=== PATIENT | female | born 1970 | race African-American/Black ===

== ENCOUNTER → 2017-02-08 | Outpatient (CLI) | payer BC ==
[2015-10-07 08:54] VITALS: BP 142/99
--- NOTE | 2017-02-08 17:01 | US ---
HISTORY: Bilateral breast lumps Bilateral digital diagnostic mammography with CAD and bilateral breast ultrasound. Comparison: May 24, 2015 FINDINGS: Mammogram: Bilateral CC, mL, and MLO projections of the right and left breast were obtained. Heterog eneously dense fibroglandular tissue is seen to be present without significant interval change. No s uspicious architectural distortion, mass or clustered microcalcifications can be observed to suggest malignancy. No skin thickening or nipple retraction is appreciated. No pathological lymphadenopath y can be identified. Benign-appearing calcifications are noted within the right and left breast. Ultrasound: Multiple grayscale and color Doppler images of both breasts were obtained in the regions of interest at 11-12 o'clock on the right and at 3 o'clock on the left. There are no suspicious cysti c or solid nodules bilaterally. On the left in the region of interest at 3 o'clock, there is a horizo ntally oriented smoothly marginated and well circumscribed 6 mm predominantly anechoic cyst with post erior acoustical enhancement and no internal Doppler flow with trace internal debris versus artifact without a suspicious peripheral nodular component. IMPRESSION: NO RADIOGRAPHIC EVIDENCE OF MALIGNANCY. ACR CATEGORY 2 - benign findings. FOLLOW-UP EXAM 1 YEAR. Diagnostic CAD was utilized and reviewed. * 0 (ZERO) - ASSESSMENT INCOMPLETE; ADDITIONAL IMAGING IS NEEDED. * 1/1 (ONE) - NEGATIVE. * 2/II (TWO) - BENIGN FINDINGS. * 3/III (THREE) - PROBABLY BENIGN FINDING; SHORT INTERVAL FOLLOW-UP SUGGESTED. * 4/IV (FOUR) - SUSPICIOUS ABNORMALITY; BIOPSY SHOULD BE CONSIDERED. * 5/V - HIGHLY SUSPICIOUS OF MALIGNANCY; BIOPSY SHOULD BE PERFORMED. A NEGATIVE X-RAY REPORT SHOULD NOT DELAY BIOPSY IF A DOMINANT OR CLINICALLY SUSPICIOUS MASS IS PRESENT; 4 TO 8 PERCENT OF CANCERS ARE NOT IDENTIFIED BY X-RAY. A NEGA TIVE REPORT MAY REINFORCE THE CLINICAL IMPRESSION. ADENOSIS AND DENSE BREASTS MAY OBSCURE AN UNDERLY ING NEOPLASM. Reported By:
== END ==
LOC: RAD 14:30
PROVIDERS: ATTEND Nurse Practitioner Family
DX: N63.0 Unspecified lump in unspecified breast (principal)
CPT/HCPCS: 76642; 77066

== ENCOUNTER 2020-09-03 06:54 | Inpatient (IN) ==
[2020-09-03] MEDS ORDERED: NS 1000 ML 1,000 ML ONE (07:09)
[2020-09-03 07:11] VITALS: BMI 43.7
[2020-09-03] MEDS ORDERED: PROTONIX INJ 40 MG VIAL IVP ONE (07:35)
[2020-09-03] MEDS ORDERED: NS 1000 ML 1,000 ML IV STA (07:35)
[2020-09-03] MEDS ORDERED: ZOFRAN INJ 4 MG VIAL IVP ONE (07:35)
--- NOTE | 2020-09-03 07:35 | ED.ABDFE ---
HPI <Higinio Lucas Last Filed: 09/07/20 18:24> Time Seen Time Seen by Provider: 09/03/20 07:00 HPI Comment HPI Comment: PATIENT WITH A HISTORY OF HYPERTENSION, DEPENDENT EDEMA COMPLAINS OF ACUTE ONSET OF LOW GRADE FEVER, CHILLS, GENERALIZED ABDOMINAL PAIN, FREQUENT EPISODES OF EMESIS AND WATERY DIARRHEA. DENIES CHEST PAIN OR DYSPNEA. Complaint Doctors Chief Complaint Comments: NAUSEA, EMESIS AND DIARRHEA COVID-19 Coronavirus symptoms experienced: Fever Reviewed Nurses Notes Review: Yes Source History Provided: Patient and EMS Mode of arrival Mode of Arrival: EMS Timing Came on: Suddenly Duration Since Onset: Constant How lon Duration: Hours Location Location: Diffuse Severity Severity: Moderate Quality Quality: Cramping Modifying factors Worsening Factors: Nothing Associated signs and symptoms Associated Signs and Symptoms: Nausea, Vomiting and Diarrhea PMH <Higinio Lucas Last Filed: 09/07/20 18:24> PMH Past Medical History: Dyslipidemia and Hypertension Past Surgical History: Yes Surgical History: , 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, 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, 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 and Other (TUBAL LIGATION) Family History Family Medical History: Diabetes Mellitus, [place], Coronary Artery Disease, Heart Failure, Sudden Cardiac and Hypertension Social History Do you use any recreational Drugs:: No ROS <Higinio Lucas Last Filed: 09/07/20 18:24> Review of Systems Constitutional: See HPI, Chills, Fever and Malaise Eyes: No Symptoms Reported ENTM: No Symptoms Reported Respiratoy: No Symptoms Reported Cardiovascular: No Symptoms Reported Gastrointestinal/Abdominal: See HPI, Abdominal Pain, Diarrhea, Nausea and Vomiting Genitourinary: No Symptoms Reported Neurological: Weakness Musculoskeletal: No Symptoms Reported Integumentary: No Symptoms Reported Hematologic/Lymphatic: No Symptoms Reported Endocrine: No Symptoms Reported Psychiatric: No Symptoms Reported All Other Systems: Reviewed and Negative PE <Higinio Lucas Last Filed: 09/07/20 18:24> Vital Signs Vitals: Temperature 98.3 F Pulse Rate [Left Radial] 116 Pulse Rate 114 Respiratory Rate 22 Blood Pressure [Right Arm] 110/64 Blood Pressure 100/56 O2 Sat by Pulse Oximetry 96 General Limitations: No Limitations General Appearance: Alert (ARRIVES TO EMERGENCY ROOM VIA EMS ALERT AND APPROPRIATE), In No Apparent Distress and Other (CHILLS) Head Head Exam: Normal Inspection and Atraumatic Eyes Eye exam: Normal Appearance, PERRL and EOMI ENT ENT Exam: Normal Exam and Normal Oropharynx Neck Neck Exam: Normal Inspection, Full ROM and Trachea Midline Chest Chest Inspection: Normal Inspection Respiratory Respiratory Exam: Normal Lung Sounds Bilat Respiratory Exam: Bilateral: Clear to Auscultation Cardiovascular Cardiovascular Exam: Regular Rate, Normal Rhythm and Tachycardia Abdominal Exam Abdominal Exam: Normal Inspection, Normal Bowel Sounds, Soft and Tenderness (PERIUMBILICAL, EPIGASTRIC AND BILATERAL LOWER QUAD TENDERNESS) Abdominal Tenderness: RLQ, LLQ and Epigastrium Back Back Exam: Normal Inspection and Full ROM Extremeties Extremities Exam: Normal Inspection and Full ROM Neurologic Neurological Exam: Alert, Oriented X3 and CN II-XII Intact Psychiatric Psychiatric Exam: Normal Affect, Normal Mood and Depressed Skin Skin Exam: Warm, Dry and Intact <Maribel Suresh - Last Filed: 09/03/20 10:42> Vital Signs Vitals: Temperature 98.3 F Pulse Rate [Left Radial] 116 Pulse Rate 114 Respiratory Rate 22 Blood Pressure [Right Arm] 110/64 Blood Pressure 100/56 O2 Sat by Pulse Oximetry 96 MDM <Higinio Lucas - Last Filed: 09/07/20 18:24> Differential Diagnosis Differential Diagnosis- Considerations may include:: Bowel Obstruction and Inflammatory BD Other differential diagnosis: ACUTE GASTROENTERITIS, COVID, COURSE <Higinio Lucas - Last Filed: 09/07/20 18:24> Treatment Treatment: IV NORMAL SALINE 1 LITER BOLUS/HR, ZOFRAN 4MG, PROTONIX 40MG IV Reevaluation 1st: Unchanged (assumed care of this patient at shift change from Dr. Lucas.) <Maribel Suresh - Last Filed: 09/03/20 10:42> Consultation Consultation Comments: Spoke with Dr. Corea who accepts this patient for admission. ROR <Higinio Lucas - Last Filed: 09/07/20 18:24> Labs Reviewed Result Diagrams: 09/07/20 04:44 09/07/20 04:44 Laboratory: 09/03/20 07:39 Stool Stool Culture - Final 09/03/20 07:39 Stool - Final 09/03/20 07:47 Blood Blood Culture - Final Escherichia Coli 09/03/20 07:42 Blood Blood Culture - Final Escherichia Coli WBC 2.0 X10^3/uL (3.6-10.0) L 09/03/20 07:35 RBC 4.04 X10^6/uL (3.5-5.4) 09/03/20 07:35 Hgb 9.6 g/dL (12.0-16.0) L 09/03/20 07:35 Hct 30.4 % (36.0-47.0) L 09/03/20 07:35 MCV 75.2 fL (80.0-100.0) L 09/03/20 07:35 MCH 23.8 pg (27.0-34.0) L 09/03/20 07:35 MCHC 31.7 g/dL (33.0-35.0) L 09/03/20 07:35 RDW 18.6 % (11.6-16.5) H 09/03/20 07:35 Plt Count 219 X10^3/uL (150.0-450.0) 09/03/20 07:35 Plt Count Comment Adequate (ADEQUATE) 09/03/20 07:35 MPV 7.6 fL (7.4-11.0) 09/03/20 07:35 Neut % (Auto) 61.2 % (42.0-75.0) 09/03/20 07:35 Lymph % (Auto) 35.0 % (21.0-51.0) 09/03/20 07:35 [place] % (Auto) 1.4 % (0.0-13.0) 09/03/20 07:35 Eos % (Auto) 0.2 % (0.9-2.9) L 09/03/20 07:35 Baso % (Auto) 2.2 % (0.2-1.0) H 09/03/20 07:35 Neut # (Auto) 1.2 x10^3/uL (2.2-4.8) L 09/03/20 07:35 Lymph # (Auto) 0.7 X10^3/uL (1.3-2.9) L 09/03/20 07:35 [place] # (Auto) 0 x10^3/uL (0.3-0.8) L 09/03/20 07:35 Eos # (Auto) 0.0 x10^3/uL (0.0-0.2) 09/03/20 07:35 Baso # (Auto) 0.0 X10^3/uL (0.0-0.1) 09/03/20 07:35 Absolute Nucleated RBC 2.1 /100WBC 09/03/20 07:35 Total Counted 50 09/03/20 07:35 Neutrophils % (Manual) 58 % (39-76) 09/03/20 07:35 Lymphocytes % (Manual) 38 % (13-43) 09/03/20 07:35 Monocytes % (Manual) 2 % (4-9) L 09/03/20 07:35 Eosinophils % (Manual) 2 % (0-6) 09/03/20 07:35 Nucleated RBCs 2 09/03/20 07:35 Plt Morphology Comment Normal (NORMAL) 09/03/20 07:35 RBC Morphology Abnormal (NORMAL) A 09/03/20 07:35 Anisocytosis Slight A 09/03/20 07:35 Sodium 143 mmol/L (136-145) 09/03/20 07:35 Corrected Sodium 145 mmol/L (136-145) 09/03/20 07:35 Potassium 3.8 mmol/L (3.5-5.1) 09/03/20 07:35 Chloride 108 mmol/L (98-107) H 09/03/20 07:35 Carbon Dioxide 24.8 mmol/L (21-32) 09/03/20 07:35 BUN 19 mg/dL (7-18) H 09/03/20 07:35 Creatinine 1.29 mg/dL (0.55-1.02) H 09/03/20 07:35 Est GFR (MDRD) Af Amer 57 (>60) L 09/03/20 07:35 Est GFR (MDRD) Non-Af 47 (>60) L 09/03/20 07:35 Glucose 177 mg/dL (65-99) H 09/03/20 07:35 Lactic Acid 5.0 mmol/L (0.4-2.0) H 09/03/20 13:42 Calcium 8.9 mg/dL (8.5-10.1) 09/03/20 07:35 Corrected Calcium 9.6 mg/dL (8.5-10.1) 09/03/20 07:35 Total Bilirubin 0.30 mg/dL (0.2-1.0) 09/03/20 07:35 AST 20 Units/L (15-37) 09/03/20 07:35 ALT 27 Units/L (12-78) 09/03/20 07:35 Alkaline Phosphatase 130 Units/L (46-116) H 09/03/20 07:35 Total Protein 7.5 g/dL (6.4-8.2) 09/03/20 07:35 Albumin 3.1 g/dL (3.4-5.0) L 09/03/20 07:35 Globulin 4.4 g/dL (2.5-4.5) 09/03/20 07:35 Albumin/Globulin Ratio 0.7 Ratio (1.1-2.1) L 09/03/20 07:35 Amylase 48 Units/L (25-115) 09/03/20 07:35 Lipase 108 Units/L (73-393) 09/03/20 07:35 Stool Description 20g,green,unformed 09/03/20 07:35 Stl Occult Blood (IFOB) Positive (NEGATIVE) A 09/03/20 07:35 Stool H. pylori Ag Negative (NEGATIVE) 09/03/20 07:35 SARS-CoV-2 (PCR) Negative (NEGATIVE) 09/03/20 07:35 Influenza Type A (PCR) Negative (NEGATIVE) 09/03/20 07:35 Influenza Type B (PCR) Negative (NEGATIVE) 09/03/20 07:35 RSV (PCR) Negative (NEGATIVE) 09/03/20 07:35 Other Results Comments: PATIENT CARE ENDORSED TO DR SURESH AT 0805 <Maribel Suresh - Last Filed: 09/03/20 10:42> Labs Reviewed Laboratory: 09/03/20 07:39 Stool Stool Culture - Final 09/03/20 07:39 Stool - Final 09/03/20 07:47 Blood Blood Culture - Final Escherichia Coli 09/03/20 07:42 Blood Blood Culture - Final Escherichia Coli WBC 2.0 X10^3/uL (3.6-10.0) L 09/03/20 07:35 RBC 4.04 X10^6/uL (3.5-5.4) 09/03/20 07:35 Hgb 9.6 g/dL (12.0-16.0) L 09/03/20 07:35 Hct 30.4 % (36.0-47.0) L 09/03/20 07:35 MCV 75.2 fL (80.0-100.0) L 09/03/20 07:35 MCH 23.8 pg (27.0-34.0) L 09/03/20 07:35 MCHC 31.7 g/dL (33.0-35.0) L 09/03/20 07:35 RDW 18.6 % (11.6-16.5) H 09/03/20 07:35 Plt Count 219 X10^3/uL (150.0-450.0) 09/03/20 07:35 Plt Count Comment Adequate (ADEQUATE) 09/03/20 07:35 MPV 7.6 fL (7.4-11.0) 09/03/20 07:35 Neut % (Auto) 61.2 % (42.0-75.0) 09/03/20 07:35 Lymph % (Auto) 35.0 % (21.0-51.0) 09/03/20 07:35 Gray % (Auto) 1.4 % (0.0-13.0) 09/03/20 07:35 Eos % (Auto) 0.2 % (0.9-2.9) L 09/03/20 07:35 Baso % (Auto) 2.2 % (0.2-1.0) H 09/03/20 07:35 Neut # (Auto) 1.2 x10^3/uL (2.2-4.8) L 09/03/20 07:35 Lymph # (Auto) 0.7 X10^3/uL (1.3-2.9) L 09/03/20 07:35 [place] # (Auto) 0 x10^3/uL (0.3-0.8) L 09/03/20 07:35 Eos # (Auto) 0.0 x10^3/uL (0.0-0.2) 09/03/20 07:35 Baso # (Auto) 0.0 X10^3/uL (0.0-0.1) 09/03/20 07:35 Absolute Nucleated RBC 2.1 /100WBC 09/03/20 07:35 Total Counted 50 09/03/20 07:35 Neutrophils % (Manual) 58 % (39-76) 09/03/20 07:35 Lymphocytes % (Manual) 38 % (13-43) 09/03/20 07:35 Monocytes % (Manual) 2 % (4-9) L 09/03/20 07:35 Eosinophils % (Manual) 2 % (0-6) 09/03/20 07:35 Nucleated RBCs 2 09/03/20 07:35 Plt Morphology Comment Normal (NORMAL) 09/03/20 07:35 RBC Morphology Abnormal (NORMAL) A 09/03/20 07:35 Anisocytosis Slight A 09/03/20 07:35 Sodium 143 mmol/L (136-145) 09/03/20 07:35 Corrected Sodium 145 mmol/L (136-145) 09/03/20 07:35 Potassium 3.8 mmol/L (3.5-5.1) 09/03/20 07:35 Chloride 108 mmol/L (98-107) H 09/03/20 07:35 Carbon Dioxide 24.8 mmol/L (21-32) 09/03/20 07:35 BUN 19 mg/dL (7-18) H 09/03/20 07:35 Creatinine 1.29 mg/dL (0.55-1.02) H 09/03/20 07:35 Est GFR (MDRD) Af Amer 57 (>60) L 09/03/20 07:35 Est GFR (MDRD) Non-Af 47 (>60) L 09/03/20 07:35 Glucose 177 mg/dL (65-99) H 09/03/20 07:35 Lactic Acid 5.0 mmol/L (0.4-2.0) H 09/03/20 13:42 Calcium 8.9 mg/dL (8.5-10.1) 09/03/20 07:35 Corrected Calcium 9.6 mg/dL (8.5-10.1) 09/03/20 07:35 Total Bilirubin 0.30 mg/dL (0.2-1.0) 09/03/20 07:35 AST 20 Units/L (15-37) 09/03/20 07:35 ALT 27 Units/L (12-78) 09/03/20 07:35 Alkaline Phosphatase 130 Units/L (46-116) H 09/03/20 07:35 Total Protein 7.5 g/dL (6.4-8.2) 09/03/20 07:35 Albumin 3.1 g/dL (3.4-5.0) L 09/03/20 07:35 Globulin 4.4 g/dL (2.5-4.5) 09/03/20 07:35 Albumin/Globulin Ratio 0.7 Ratio (1.1-2.1) L 09/03/20 07:35 Amylase 48 Units/L (25-115) 09/03/20 07:35 Lipase 108 Units/L (73-393) 09/03/20 07:35 Stool Description 20g,green,unformed 09/03/20 07:35 Stl Occult Blood (IFOB) Positive (NEGATIVE) A 09/03/20 07:35 Stool H. pylori Ag Negative (NEGATIVE) 09/03/20 07:35 SARS-CoV-2 (PCR) Negative (NEGATIVE) 09/03/20 07:35 Influenza Type A (PCR) Negative (NEGATIVE) 09/03/20 07:35 Influenza Type B (PCR) Negative (NEGATIVE) 09/03/20 07:35 RSV (PCR) Negative (NEGATIVE) 09/03/20 07:35 Opioid <Higinio Lucas - Last Filed: 09/07/20 18:24> Opioid Risk Tool Total: 0 Total Score Risk Category: Low Risk Copyright: López ELIAS predicting aberrant behaviors <Maribel Suresh - Last Filed: 09/03/20 10:42> Opioid Risk Tool Total: 0 Total Score Risk Category: Low Risk <Higinio Lucas - Last Filed: 09/07/20 18:24> Diagnosis Discharge Problem: Acute infectious diarrhea Instructions Forms: Excuse From Work or School Precautions for COVID19 Patient Portal Social Distancing
[2020-09-03] MEDS ORDERED: PROTONIX INJ 40 MG VIAL ONE (07:43)
[2020-09-03] MEDS ORDERED: MORPHINE SULFATE INJ 4 MG IVP ONE ×2 (07:52→08:04)
[2020-09-03] MEDS ORDERED: MORPHINE SULFATE INJ 4 MG ONE ×2 (07:56→08:05)
[2020-09-03 08:10] LABS: CALCIUM 8.9 mg/dL (8.5-10.1); CARBON DIOXIDE 24.8 mmol/L (21-32); CREATININE 1.29 mg/dL (0.55-1.02)
[2020-09-03 08:19] LABS: LACTIC ACID 3.9 mmol/L (0.4-2.0)
[2020-09-03 08:20] LABS: HEMOGLOBIN 9.6 g/dL (12.0-16.0); LYMPHOCYTES # (AUTO) 0.7 X10^3/uL (1.3-2.9); MEAN CORPUSCULAR HEMOGLOBIN 23.8 pg (27.0-34.0); MEAN CORPUSCULAR HGB CONC 31.7 g/dL (33.0-35.0); MONOCYTES # (AUTO) 0 x10^3/uL (0.3-0.8)
[2020-09-03 08:28] LABS: BASOPHILS % (AUTO) 2.2 % (0.2-1.0); EOSINOPHILS % (AUTO) 0.2 % (0.9-2.9); HEMATOCRIT 30.4 % (36.0-47.0); MEAN CORPUSCULAR VOLUME 75.2 fL (80.0-100.0); MEAN PLATELET VOLUME 7.6 fL (7.4-11.0); MONOCYTES % (AUTO) 1.4 % (0.0-13.0); NEUTROPHILS # (AUTO) 1.2 x10^3/uL (2.2-4.8); NEUTROPHILS % (AUTO) 61.2 % (42.0-75.0); PLATELET COUNT 219 X10^3/uL (150.0-450.0); RED BLOOD COUNT 4.04 X10^6/uL (3.5-5.4); RED CELL DISTRIBUTION WIDTH 18.6 % (11.6-16.5)
[2020-09-03 08:30] LABS: ANISOCYTOSIS SLIGHT; PLATELET MORPHOLOGY COMMENT NORMAL (NORMAL)
[2020-09-03 08:45] LABS: ALBUMIN 3.1 g/dL (3.4-5.0); COR CA(FOR HYPOALB) 9.6 mg/dL (8.5-10.1); TOTAL PROTEIN 7.5 g/dL (6.4-8.2)
[2020-09-03] MEDS ORDERED: ZITHROMAX TAB 250 MG PO ONE ×2 (08:48→08:57)
[2020-09-03] MEDS ORDERED: CIPRO TAB 500 MG PO ONE ×2 (08:48→08:57)
--- NOTE | 2020-09-03 10:29 | RAD ---
HISTORYABDOMINAL PAIN, N/V/D, CHILLS, BACK PAINSTUDYACUTE ABDOMEN SERIESCOMPARISONNoneFINDINGSThe cardiomediastinal silhouette is prominent. The lungs are clear without evidence of airspace disease or effusion. No pneumothorax. The bony thorax appears intact.Evaluation of the abdomen demonstrates a nonobstructive bowel gas pattern. 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 clips. No evidence of pneumoperitoneum. No pathologic soft tissue calcification. The bony structures of the abdomen are intact.IMPRESSION1. No acute cardiopulmonary process.2. No acute abdominal process.Electronically signed by: SEVEN SORENSON (Sep 03, 2020 10:27:30)
[2020-09-03] MEDS: NS 1000 ML 1,000 ML IV SCH ×2 (12:42→16:08)
[2020-09-03] MEDS: LIPITOR TAB 10 MG PO SCH (14:39)
[2020-09-03] MEDS: NORVASC TAB 5 MG PO SCH (14:41)
[2020-09-03] MEDS ORDERED: NS 1000 ML 1,000 ML IV ONE ×2 (14:42→19:12)
[2020-09-03 16:03] LABS: BILIRUBIN,URINE 1+ (NEGATIVE); BLOOD/HEMOGLOBIN,URINE 5+ (NEGATIVE); GLUCOSE, URINE NEGATIVE (NEGATIVE); KETONES,URINE 1+ (NEGATIVE); LEUKOCYTE ESTERASE ,URINE 2+ (NEGATIVE); NITRITES,URINE POSITIVE (NEGATIVE); PROTEIN,URINE 3+ (NEGATIVE); UROBILINOGEN,URINE 1+ (NORMAL)
[2020-09-03 16:18] LABS: APPEARANCE,URINE CLOUDY (CLEAR); COLOR,URINE DARK YELLOW (YELLOW)
[2020-09-03 16:19] LABS: BACTERIA,URINE 1+ /HPF (NEGATIVE); SQUAMOUS EPITHELIAL CELL,UR MODERATE /HPF (NEGATIVE)
[2020-09-03] MEDS ORDERED: PHARMACY CONSULT - VANCOMYCIN XX SCH (20:00)
--- NOTE | 2020-09-03 20:29 | CT ---
PROCEDURE: CT Abdomen and Pelvis with Contrast .HISTORY: ELEVATED LATIC ACID, INFECTIOUS DIARRHEA, R/O ISCHEMIC BOWEL .TECHNIQUE: Axial images were performed through the abdomen and pelvis with the administration of IV contrast with multiplanar reformations . Oral contrast was not administered. Dose reduction techniques including Automated Exposure Control (AEC) and adjustment of mA and kV were utilized .COMPARISON: None .TECHNICAL QUALITY: Satisfactory .FINDINGS:Clear lung bases.Liver, spleen, adrenals, pancreas show no significant abnormality.Kidneys show normal enhancement with no mass or obstruction.Previous cholecystectomy with normal size biliary tree.No abdominal ascites or pneumoperitoneum.Normal aorta with no atherosclerosis, aneurysm, or dissection. Major branches of the abdominal aorta show normal enhancement with no narrowing or occlusion.No lymphadenopathy.No bowel obstruction or inflammation. No pneumatosis intestinalis. Normal appendix.Pelvis shows 10 cm hypoattenuating mass the uterus may represent a fibroid. No free fluid or other masses in the pelvis. Normal urinary bladder.No acute bony abnormality.IMPRESSION:1. Normal appearing bowel by CT with no evidence of ischemia and no significant vascular abnormality.2. Suspected large uterine fibroid.Electronically signed by: Homero Natarajan (Sep 03, 2020 20:26:08)
[2020-09-03] MEDS ORDERED: TYLENOL 325 MG TAB PO ONE (20:33)
[2020-09-03] MEDS: VANCOMYCIN IV *PREMIX 1.25 G/250 ML BAG 1.25 G/250 ML PIGGYBACK IV SCH (20:46)
[2020-09-03] MEDS: TYLENOL 325 MG TAB PO PRN (20:47)
[2020-09-03] MEDS ORDERED: CIPRO TAB 500 MG PO SCH (21:00)
[2020-09-03] MEDS: ZOSYN VIAL 3.375 GRAMS 3.375 G in NS 100 ML IV + SPIKE MINIBAG* 100 ML IV SCH (22:21)
[2020-09-04] MEDS: NS 1000 ML 1,000 ML IV SCH ×5 (06:15→20:12)
[2020-09-04] MEDS: ZOFRAN INJ 4 MG VIAL IVP PRN ×2 (06:15→17:05)
[2020-09-04] MEDS: MORPHINE SULFATE INJ 2 MG INJ IVP PRN ×2 (06:16→19:52)
[2020-09-04] MEDS: ZOSYN VIAL 3.375 GRAMS 3.375 G in NS 100 ML IV + SPIKE MINIBAG* 100 ML IV SCH ×3 (06:16→21:06)
[2020-09-04 07:21] LABS: BASOPHILS % (AUTO) 0.2 % (0.2-1.0); HEMATOCRIT 26.5 % (36.0-47.0); HEMOGLOBIN 8.4 g/dL (12.0-16.0); LYMPHOCYTES % (AUTO) 3.2 % (21.0-51.0); MEAN CORPUSCULAR HEMOGLOBIN 23.5 pg (27.0-34.0); MEAN CORPUSCULAR HGB CONC 31.6 g/dL (33.0-35.0); MEAN CORPUSCULAR VOLUME 74.4 fL (80.0-100.0); MEAN PLATELET VOLUME 8.3 fL (7.4-11.0); MONOCYTES # (AUTO) 2.1 x10^3/uL (0.3-0.8); MONOCYTES % (AUTO) 6.8 % (0.0-13.0); NEUTROPHILS # (AUTO) 27.4 x10^3/uL (2.2-4.8); NEUTROPHILS % (AUTO) 89.8 % (42.0-75.0); PLATELET COUNT 182 X10^3/uL (150.0-450.0); RED BLOOD COUNT 3.56 X10^6/uL (3.5-5.4); RED CELL DISTRIBUTION WIDTH 19.3 % (11.6-16.5)
[2020-09-04 07:26] LABS: WHITE BLOOD COUNT 30.5 X10^3/uL (3.6-10.0)
[2020-09-04 07:28] LABS: ALBUMIN 2.7 g/dL (3.4-5.0); CALCIUM 7.7 mg/dL (8.5-10.1); CARBON DIOXIDE 27.3 mmol/L (21-32); COR CA(FOR HYPOALB) 8.7 mg/dL (8.5-10.1); CREATININE 1.41 mg/dL (0.55-1.02); TOTAL PROTEIN 7.1 g/dL (6.4-8.2)
[2020-09-04 08:01] LABS: BAND NEUTROPHILS % 12 % (0-10); HYPOCHROMASIA 1+; METAMYELOCYTES % 5; PLATELET MORPHOLOGY COMMENT NORMAL (NORMAL)
[2020-09-04 08:02] LABS: ANISOCYTOSIS SLIGHT; MICROCYTOSIS SLIGHT; TARGET CELLS SLIGHT
[2020-09-04] MEDS ORDERED: ZITHROMAX TAB 250 MG PO SCH (09:00)
[2020-09-04] MEDS: NORVASC TAB 5 MG PO SCH (09:15)
[2020-09-04] MEDS: LIPITOR TAB 10 MG PO SCH (09:15)
--- NOTE | 2020-09-04 10:29 | RAD ---
HISTORY:Fever, sepsisStudy: Single view chestComparison:Abdomen CT 09/03/2020Findings:Low lung volumes with mild atelectasis at the lung bases. No infiltrate, effusion, or pneumothorax identified .Cardiac and mediastinal contours are within normal limits .The soft tissues are intact .IMPRESSION:1. No acute cardiopulmonary abnormality.Electronically signed by: ANALIA SEAMAN (Sep 04, 2020 10:26:59)
--- NOTE | 2020-09-04 11:05 | DR.H&P ---
H&P History & Physical for Day of: H&P Date: 09/03/20 Chief Complaint Chief Complaint: Diarrhea Abdominal pain Allergies Allergies Allergy/AdvReac Type Severity Reaction Status Date / Time cefaclor [From Ceclor] Allergy Verified 10/17/17 21:26 cyclobenzaprine Allergy Verified 10/17/17 21:26 [From Flexeril] nabumetone [From Relafen] Allergy Verified 10/17/17 21:26 sucralfate [From Carafate] Allergy Verified 10/17/17 21:26 History of Present Illness History of Present Illness: Pt is a 49 year old female past medical history of hypertension presenting after waking up this morning with multiple frequent "watery" diarrhea and generalized abdominal pain. Pt reports symptoms just started this morning with associated fever and chills. Pt reports she ate fried chicken last night that she prepared herself. Labs/imaging: Wbc 2>30, Hgb 9.6>8.4, Plt 219>182, Na 141, K 4.5, Creatinine 1.41, Glucose 127, LA 3.9>5.2>2.1, UA c/w infection, Urine culture pending, Blood culture prelim gram negative rods, COVID19/ /RSV negative, C. diff/H. pylori negative, Fecal occult positive, Stool cultures prelim positive Campylobacter. CXR and Abdominal XR: 1. No acute cardiopulmonary process. 2. No acute abdominal process. CTA abdomen:1. Normal appearing bowel by CT with no evidence of ischemia and no significant vascular abnormality. 2.Suspected large uterine fibroid. Pt received IV bolus of NS in the ED, she required another 2L NS bolus for LA to start trending down. She was given a dose of ciprofloxacin and azithromycin in the ED. Nurse later called stating blood cultures positive. She was then started on IV Vancomycin, Zosyn, PO Azithromycin. Other treatments include: IVF NS@150ml/h, CLD, IV morphine prn for pain, restart home medications. Will continue to closely monitor and follow up labs/imaging. Time spent on clinical assessment, reviewing labs/imaging, decision making and documentation greater than 75 minutes. 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 Family History Family Medical History: Diabetes Mellitus, Cancer, Coronary Artery Disease and Hypertension Social History Does patient currently use any type of tobacco product: No Have you used tobacco products in the last 12 months: No Type of Tobacco Use: None Does any household member use tobacco: No Alcohol Use: None Drug Use: None Medications Home Medications: cefaclor [From Ceclor] Allergy (Verified 10/17/17 21:26) cyclobenzaprine [From Flexeril] Allergy (Verified 10/17/17 21:26) nabumetone [From Relafen] Allergy (Verified 10/17/17 21:26) sucralfate [From Carafate] Allergy (Verified 10/17/17 21:26) Labs Result Diagrams: 09/04/20 07:00 09/04/20 07:00 Labs: 09/03/20 15:55 Urine,Clean Catch Urine Culture - Preliminary 09/03/20 07:39 Stool - Final Laboratory WBC 30.5 X10^3/uL (3.6-10.0) H* D 09/04/20 07:00 RBC 3.56 X10^6/uL (3.5-5.4) 09/04/20 07:00 Hgb 8.4 g/dL (12.0-16.0) L 09/04/20 07:00 Hct 26.5 % (36.0-47.0) L 09/04/20 07:00 MCV 74.4 fL (80.0-100.0) L 09/04/20 07:00 MCH 23.5 pg (27.0-34.0) L 09/04/20 07:00 MCHC 31.6 g/dL (33.0-35.0) L 09/04/20 07:00 RDW 19.3 % (11.6-16.5) H 09/04/20 07:00 Plt Count 182 X10^3/uL (150.0-450.0) 09/04/20 07:00 Plt Count Comment Adequate (ADEQUATE) 09/04/20 07:00 MPV 8.3 fL (7.4-11.0) 09/04/20 07:00 Neut % (Auto) 89.8 % (42.0-75.0) H 09/04/20 07:00 Lymph % (Auto) 3.2 % (21.0-51.0) L 09/04/20 07:00 [place] % (Auto) 6.8 % (0.0-13.0) 09/04/20 07:00 Eos % (Auto) 0.0 % (0.9-2.9) L 09/04/20 07:00 Baso % (Auto) 0.2 % (0.2-1.0) 09/04/20 07:00 Neut # (Auto) 27.4 x10^3/uL (2.2-4.8) H 09/04/20 07:00 Lymph # (Auto) 1.0 X10^3/uL (1.3-2.9) L 09/04/20 07:00 [place] # (Auto) 2.1 x10^3/uL (0.3-0.8) H 09/04/20 07:00 Eos # (Auto) 0.0 x10^3/uL (0.0-0.2) 09/04/20 07:00 Baso # (Auto) 0.0 X10^3/uL (0.0-0.1) 09/04/20 07:00 Absolute Nucleated RBC 0.1 /100WBC 09/04/20 07:00 Total Counted 100 09/04/20 07:00 Neutrophils % (Manual) 76 % (39-76) 09/04/20 07:00 Band Neutrophils % 12 % (0-10) H 09/04/20 07:00 Lymphocytes % (Manual) 3 % (13-43) L 09/04/20 07:00 Monocytes % (Manual) 4 % (4-9) 09/04/20 07:00 Eosinophils % (Manual) 2 % (0-6) 09/03/20 07:35 Metamyelocytes % 5 09/04/20 07:00 Nucleated RBCs 2 09/03/20 07:35 Plt Morphology Comment Normal (NORMAL) 09/04/20 07:00 RBC Morphology Abnormal (NORMAL) A 09/04/20 07:00 Hypochromasia 1+ A 09/04/20 07:00 Anisocytosis Slight A 09/04/20 07:00 Microcytosis Slight A 09/04/20 07:00 Target Cells Slight A 09/04/20 07:00 Sodium 141 mmol/L (136-145) 09/04/20 07:00 Corrected Sodium 142 mmol/L (136-145) 09/04/20 07:00 Potassium 4.5 mmol/L (3.5-5.1) 09/04/20 07:00 Chloride 107 mmol/L (98-107) 09/04/20 07:00 Carbon Dioxide 27.3 mmol/L (21-32) 09/04/20 07:00 BUN 20 mg/dL (7-18) H 09/04/20 07:00 Creatinine 1.41 mg/dL (0.55-1.02) H 09/04/20 07:00 Est GFR (MDRD) Af Amer 51 (>60) L 09/04/20 07:00 Est GFR (MDRD) Non-Af 42 (>60) L 09/04/20 07:00 Glucose 127 mg/dL (65-99) H 09/04/20 07:00 Lactic Acid 2.1 mmol/L (0.4-2.0) H 09/04/20 10:05 Calcium 7.7 mg/dL (8.5-10.1) L 09/04/20 07:00 Corrected Calcium 8.7 mg/dL (8.5-10.1) 09/04/20 07:00 Total Bilirubin 0.50 mg/dL (0.2-1.0) 09/04/20 07:00 AST 48 Units/L (15-37) H 09/04/20 07:00 ALT 41 Units/L (12-78) 09/04/20 07:00 Alkaline Phosphatase 100 Units/L (46-116) 09/04/20 07:00 Total Protein 7.1 g/dL (6.4-8.2) 09/04/20 07:00 Albumin 2.7 g/dL (3.4-5.0) L 09/04/20 07:00 Globulin 4.4 g/dL (2.5-4.5) 09/04/20 07:00 Albumin/Globulin Ratio 0.6 Ratio (1.1-2.1) L 09/04/20 07:00 Amylase 48 Units/L (25-115) 09/03/20 07:35 Lipase 108 Units/L (73-393) 09/03/20 07:35 Specimen Type Clean catch urine 09/03/20 15:55 Urine Color Dark yellow (YELLOW) 09/03/20 15:55 Urine Appearance Cloudy (CLEAR) 09/03/20 15:55 Urine pH 5.0 (5.0 - 8.0) 09/03/20 15:55 Ur Specific [place] 1.020 (1.000-1.030) 09/03/20 15:55 Urine Protein 3+ (NEGATIVE) 09/03/20 15:55 Urine Glucose (UA) Negative (NEGATIVE) 09/03/20 15:55 Urine Ketones 1+ (NEGATIVE) 09/03/20 15:55 Urine Occult Blood 5+ (NEGATIVE) 09/03/20 15:55 Urine Nitrite Positive (NEGATIVE) 09/03/20 15:55 Urine Bilirubin 1+ (NEGATIVE) 09/03/20 15:55 Urine Urobilinogen 1+ (NORMAL) 09/03/20 15:55 Ur Leukocyte Esterase 2+ (NEGATIVE) 09/03/20 15:55 Urine RBC 5-10 /HPF (0-3) A 09/03/20 15:55 Urine WBC 5-10 /HPF (0-5) A 09/03/20 15:55 Ur Squamous Epith Cells Moderate /HPF (NEGATIVE) 09/03/20 15:55 Urine Bacteria 1+ /HPF (NEGATIVE) 09/03/20 15:55 Ur Culture Indicated? Yes/culture set up 09/03/20 15:55 Stool Description 20g,green,unformed 09/03/20 07:35 Stl Occult Blood (IFOB) Positive (NEGATIVE) A 09/03/20 07:35 Stl C. diff Tox B Gene Negative (NEGATIVE) 09/04/20 09:40 Stl C. diff [id number] Presumptive negative (NEGATIVE) 09/04/20 09:40 Stool H. pylori Ag Cancelled 09/04/20 09:40 SARS-CoV-2 (PCR) Negative (NEGATIVE) 09/03/20 07:35 Influenza Type A (PCR) Negative (NEGATIVE) 09/03/20 07:35 Influenza Type B (PCR) Negative (NEGATIVE) 09/03/20 07:35 RSV (PCR) Negative (NEGATIVE) 09/03/20 07:35 Review of Systems Constitutional: Fever and Chills Eyes: No Symptoms Reported ENT: No Symptoms Reported Respiratory: No Symptoms Reported Cardiovascular: No Symptoms Reported Gastrointestinal: Abdominal Pain and Diarrhea Genitourinary: No Symptoms Reported Musculoskeletal: No Symptoms Reported Skin: No Symptoms Reported Neurological: No Symptoms Reported Physical Exam Vital Signs: Temperature 98.5 F Pulse Rate [Left Radial] 98 Pulse Rate 114 Respiratory Rate 18 Blood Pressure [Left Arm] 127/66 Blood Pressure [Right Arm] 122/58 Blood Pressure 100/56 O2 Sat by Pulse Oximetry 100 Oriented: Normal Eyes: Normal Ear: Normal Nose: Normal Throat: Normal Respiratory: Clear Throughout Cardiovascular: Normal : Normal Auscultation: Bowel Sounds: Increased Palpation: Normal Tenderness: Diffuse and Epigastric Skin: Normal Musculoskeletal: Normal Psychiatric: Normal Mood Description: Calm and Appropriate Affect: Normal Speech Pattern: Clear and Appropriate Assessment/Plan (1) Sepsis: Status: Acute Plan: IV antibiotics IVF (2) Bacteremia: Status: Acute (3) Campylobacter diarrhea: Status: Acute Review H&P Reviewed: Yes Patient was examined?: Yes
--- NOTE | 2020-09-04 11:53 | PCM.PROG ---
Progress Note Progress Note for Day of Date of Exam: 09/04/20 Subjective Subjective: Pt is a 49 year old female past medical history of hypertension admitted for Sepsis, Bacteremia, Campylobacter diarrhea. This morning patient reports feeling a little better. She did spike a fever overnight. Had episode of watery diarrhea this morning. Labs/imaging: Wbc 30, Hgb 8.4, Plt 182, Na 141, K 4.5, Creatinine 1.41, Glucose 127, LA 2.1, Urine culture prelim contamination, Blood culture prelim gram negative rods, Stool cultures prelim positive Campylobacter. CXR and Abdominal XR: 1.No acute cardiopulmonary process. 2. No acute abdominal process. Treatment course includes: Antibiotics: IV Vancomycin, Zosyn, PO Azithromycin. CLD, IV morphine prn for pain, Zofran prn. Will advance diet to full liquids order ova and parasite stool studies. Order protonix. Otherwise continue current treatment plan. Closely monitor and follow up labs/imaging. Time spent on clinical assessment, reviewing labs/imaging, decision making, and documentation greater than 45 minutes. Past Medical Family Social History Past Med/Fam/Surg Hx: No changes since H&P Allergies: Allergies cefaclor [From Ceclor] Allergy (Verified 10/17/17 21:26) cyclobenzaprine [From Flexeril] Allergy (Verified 10/17/17 21:26) nabumetone [From Relafen] Allergy (Verified 10/17/17 21:26) sucralfate [From Carafate] Allergy (Verified 10/17/17 21:26) Review of Systems ROS: No change since H&P Vital Signs and I&O's Vital Signs: Temperature 98.5 F Pulse Rate [Left Radial] 98 Pulse Rate 114 Respiratory Rate 18 Blood Pressure [Left Arm] 127/66 Blood Pressure [Right Arm] 122/58 Blood Pressure 100/56 O2 Sat by Pulse Oximetry 100 Intake and Output: Intake & Output 09/01/20 09/02/20 09/03/20 09/04/20 23:59 23:59 23:59 23:59 Intake Total 2882 / 2882 500 / 500 Balance 2882 / 2882 500 / 500 Physical Exam Oriented: Normal Eyes: Normal Ear: Normal Nose: Normal Throat: Normal Cardiovascular: Normal : Normal Auscultation: Bowel Sounds: Increased Tenderness: Diffuse and Epigastric Skin: Normal Musculoskeletal: Normal Psychiatric: Normal Mood Description: Calm and Appropriate Affect: Normal Speech Pattern: Clear and Appropriate Laboratory and Diagnostics Result Diagrams: 09/04/20 07:00 09/04/20 07:00 Labs: 09/03/20 07:39 Stool Stool Culture - Preliminary 09/03/20 07:39 Stool - Final 09/03/20 07:42 Blood Blood Culture - Preliminary 09/03/20 07:47 Blood Blood Culture - Preliminary 09/03/20 15:55 Urine,Clean Catch Urine Culture - Preliminary Laboratory WBC 30.5 X10^3/uL (3.6-10.0) H* D 09/04/20 07:00 RBC 3.56 X10^6/uL (3.5-5.4) 09/04/20 07:00 Hgb 8.4 g/dL (12.0-16.0) L 09/04/20 07:00 Hct 26.5 % (36.0-47.0) L 09/04/20 07:00 MCV 74.4 fL (80.0-100.0) L 09/04/20 07:00 MCH 23.5 pg (27.0-34.0) L 09/04/20 07:00 MCHC 31.6 g/dL (33.0-35.0) L 09/04/20 07:00 RDW 19.3 % (11.6-16.5) H 09/04/20 07:00 Plt Count 182 X10^3/uL (150.0-450.0) 09/04/20 07:00 Plt Count Comment Adequate (ADEQUATE) 09/04/20 07:00 MPV 8.3 fL (7.4-11.0) 09/04/20 07:00 Neut % (Auto) 89.8 % (42.0-75.0) H 09/04/20 07:00 Lymph % (Auto) 3.2 % (21.0-51.0) L 09/04/20 07:00 [place] % (Auto) 6.8 % (0.0-13.0) 09/04/20 07:00 Eos % (Auto) 0.0 % (0.9-2.9) L 09/04/20 07:00 Baso % (Auto) 0.2 % (0.2-1.0) 09/04/20 07:00 Neut # (Auto) 27.4 x10^3/uL (2.2-4.8) H 09/04/20 07:00 Lymph # (Auto) 1.0 X10^3/uL (1.3-2.9) L 09/04/20 07:00 [place] # (Auto) 2.1 x10^3/uL (0.3-0.8) H 09/04/20 07:00 Eos # (Auto) 0.0 x10^3/uL (0.0-0.2) 09/04/20 07:00 Baso # (Auto) 0.0 X10^3/uL (0.0-0.1) 09/04/20 07:00 Absolute Nucleated RBC 0.1 /100WBC 09/04/20 07:00 Total Counted 100 09/04/20 07:00 Neutrophils % (Manual) 76 % (39-76) 09/04/20 07:00 Band Neutrophils % 12 % (0-10) H 09/04/20 07:00 Lymphocytes % (Manual) 3 % (13-43) L 09/04/20 07:00 Monocytes % (Manual) 4 % (4-9) 09/04/20 07:00 Eosinophils % (Manual) 2 % (0-6) 09/03/20 07:35 Metamyelocytes % 5 09/04/20 07:00 Nucleated RBCs 2 09/03/20 07:35 Plt Morphology Comment Normal (NORMAL) 09/04/20 07:00 RBC Morphology Abnormal (NORMAL) A 09/04/20 07:00 Hypochromasia 1+ A 09/04/20 07:00 Anisocytosis Slight A 09/04/20 07:00 Microcytosis Slight A 09/04/20 07:00 Target Cells Slight A 09/04/20 07:00 Sodium 141 mmol/L (136-145) 09/04/20 07:00 Corrected Sodium 142 mmol/L (136-145) 09/04/20 07:00 Potassium 4.5 mmol/L (3.5-5.1) 09/04/20 07:00 Chloride 107 mmol/L (98-107) 09/04/20 07:00 Carbon Dioxide 27.3 mmol/L (21-32) 09/04/20 07:00 BUN 20 mg/dL (7-18) H 09/04/20 07:00 Creatinine 1.41 mg/dL (0.55-1.02) H 09/04/20 07:00 Est GFR (MDRD) Af Amer 51 (>60) L 09/04/20 07:00 Est GFR (MDRD) Non-Af 42 (>60) L 09/04/20 07:00 Glucose 127 mg/dL (65-99) H 09/04/20 07:00 Lactic Acid 2.1 mmol/L (0.4-2.0) H 09/04/20 10:05 Calcium 7.7 mg/dL (8.5-10.1) L 09/04/20 07:00 Corrected Calcium 8.7 mg/dL (8.5-10.1) 09/04/20 07:00 Total Bilirubin 0.50 mg/dL (0.2-1.0) 09/04/20 07:00 AST 48 Units/L (15-37) H 09/04/20 07:00 ALT 41 Units/L (12-78) 09/04/20 07:00 Alkaline Phosphatase 100 Units/L (46-116) 09/04/20 07:00 Total Protein 7.1 g/dL (6.4-8.2) 09/04/20 07:00 Albumin 2.7 g/dL (3.4-5.0) L 09/04/20 07:00 Globulin 4.4 g/dL (2.5-4.5) 09/04/20 07:00 Albumin/Globulin Ratio 0.6 Ratio (1.1-2.1) L 09/04/20 07:00 Amylase 48 Units/L (25-115) 09/03/20 07:35 Lipase 108 Units/L (73-393) 09/03/20 07:35 Specimen Type Clean catch urine 09/03/20 15:55 Urine Color Dark yellow (YELLOW) 09/03/20 15:55 Urine Appearance Cloudy (CLEAR) 09/03/20 15:55 Urine pH 5.0 (5.0 - 8.0) 09/03/20 15:55 Ur Specific [place] 1.020 (1.000-1.030) 09/03/20 15:55 Urine Protein 3+ (NEGATIVE) 09/03/20 15:55 Urine Glucose (UA) Negative (NEGATIVE) 09/03/20 15:55 Urine Ketones 1+ (NEGATIVE) 09/03/20 15:55 Urine Occult Blood 5+ (NEGATIVE) 09/03/20 15:55 Urine Nitrite Positive (NEGATIVE) 09/03/20 15:55 Urine Bilirubin 1+ (NEGATIVE) 09/03/20 15:55 Urine Urobilinogen 1+ (NORMAL) 09/03/20 15:55 Ur Leukocyte Esterase 2+ (NEGATIVE) 09/03/20 15:55 Urine RBC 5-10 /HPF (0-3) A 09/03/20 15:55 Urine WBC 5-10 /HPF (0-5) A 09/03/20 15:55 Ur Squamous Epith Cells Moderate /HPF (NEGATIVE) 09/03/20 15:55 Urine Bacteria 1+ /HPF (NEGATIVE) 09/03/20 15:55 Ur Culture Indicated? Yes/culture set up 09/03/20 15:55 Stool Description 20g,green,unformed 09/03/20 07:35 Stl Occult Blood (IFOB) Positive (NEGATIVE) A 09/03/20 07:35 Stl C. diff Tox B Gene Negative (NEGATIVE) 09/04/20 09:40 Stl C. diff 027-NAP1-BI Presumptive negative (NEGATIVE) 09/04/20 09:40 Stool H. pylori Ag Cancelled 09/04/20 09:40 SARS-CoV-2 (PCR) Negative (NEGATIVE) 09/03/20 07:35 Influenza Type A (PCR) Negative (NEGATIVE) 09/03/20 07:35 Influenza Type B (PCR) Negative (NEGATIVE) 09/03/20 07:35 RSV (PCR) Negative (NEGATIVE) 09/03/20 07:35 Plan (1) Sepsis: Status: Acute Plan: IV antibiotics IVF (2) Bacteremia: Status: Acute (3) Campylobacter diarrhea: Status: Acute
[2020-09-04] MEDS: PROTONIX TAB 40 MG PO SCH (12:42)
[2020-09-04] MEDS: ZITHROMAX TAB 250 MG PO SCH (12:42)
[2020-09-04 18:23] LABS: CRYPTOSPORIDIUM PARVUM ANTIGEN NEGATIVE (NEGATIVE); GIARDIA LAMBLIA ANTIGEN NEGATIVE (NEGATIVE)
[2020-09-04] MEDS: VANCOMYCIN IV *PREMIX 1.25 G/250 ML BAG 1.25 G/250 ML PIGGYBACK IV SCH (19:56)
[2020-09-05] MEDS: TYLENOL 325 MG TAB PO PRN ×2 (00:36→19:45)
[2020-09-05] MEDS: ZOSYN VIAL 3.375 GRAMS 3.375 G in NS 100 ML IV + SPIKE MINIBAG* 100 ML IV SCH (05:44)
[2020-09-05] MEDS: NS 1000 ML 1,000 ML IV SCH ×3 (05:44→18:19)
[2020-09-05] MEDS: NORVASC TAB 5 MG PO SCH (08:51)
[2020-09-05] MEDS: LIPITOR TAB 10 MG PO SCH (08:51)
[2020-09-05] MEDS: ZITHROMAX TAB 250 MG PO SCH (08:51)
[2020-09-05] MEDS: PROTONIX TAB 40 MG PO SCH (08:51)
[2020-09-05 10:35] LABS: BASOPHILS # (AUTO) 0.1 X10^3/uL (0.0-0.1); BASOPHILS % (AUTO) 0.5 % (0.2-1.0); EOSINOPHILS # (AUTO) 0.4 x10^3/uL (0.0-0.2); EOSINOPHILS % (AUTO) 1.6 % (0.9-2.9); HEMATOCRIT 24.7 % (36.0-47.0); HEMOGLOBIN 7.7 g/dL (12.0-16.0); LYMPHOCYTES # (AUTO) 1.1 X10^3/uL (1.3-2.9); LYMPHOCYTES % (AUTO) 4.2 % (21.0-51.0); MEAN CORPUSCULAR HEMOGLOBIN 23.5 pg (27.0-34.0); MEAN CORPUSCULAR HGB CONC 31.1 g/dL (33.0-35.0); MEAN CORPUSCULAR VOLUME 75.4 fL (80.0-100.0); MEAN PLATELET VOLUME 8.4 fL (7.4-11.0); MONOCYTES # (AUTO) 1.2 x10^3/uL (0.3-0.8); MONOCYTES % (AUTO) 4.4 % (0.0-13.0); NEUTROPHILS # (AUTO) 23.9 x10^3/uL (2.2-4.8); NEUTROPHILS % (AUTO) 89.3 % (42.0-75.0); PLATELET COUNT 157 X10^3/uL (150.0-450.0); RED BLOOD COUNT 3.28 X10^6/uL (3.5-5.4); RED CELL DISTRIBUTION WIDTH 19.3 % (11.6-16.5); WHITE BLOOD COUNT 26.7 X10^3/uL (3.6-10.0)
--- NOTE | 2020-09-05 10:37 | PCM.PROG ---
Progress Note Progress Note for Day of Date of Exam: 09/05/20 Subjective Subjective: Pt is a 49 year old female past medical history of hypertension admitted for Sepsis, E coli Bacteremia, Campylobacter diarrhea. This morning patient reports decreased energy and significant shortness of breath. She did spike another fever overnight. Labs/imaging: Wbc 26.7, Hgb 7.7, Plt 157, Na 140, K 3.8, Creatinine 1.22, Glucose 153, LA 1.6, Urine culture NGTD, Blood culture E coli pansensitive, Stool cultures prelim positive Campylobacter, Ova and parasites pending. Treatment course includes: Antibiotics: IV Vancomycin, Zosyn, PO Azithromycin. Full liquid diet, IV morphine prn for pain, Zofran prn. After examination this morning patient had acute episode of shortness of breath. She did have some bilateral end expiratory wheezing and diminished breath sounds. ABG was obtained: pH 7.34, pCO2 50, pO2 51, HCO3 27, 83% O2 sat on RA, CXR: Cardiomegaly without pulmonary edema or organized infiltrates. D-dimer >20. Will get CTA Chest stat to rule out pulmonary embolism, Cardiac enzymes, Lower extremity venous duplex, and Echo. Order bronchodilators and Incentive spirometry. Change antibiotics based on cultures to IV Ciprofloxacin and keep Azithromycin. Closely monitor and follow up labs/imaging. Time spent on clinical assessment, reviewing labs/imaging, decision making, and documentation greater than 45 minutes. Past Medical Family Social History Past Med/Fam/Surg Hx: No changes since H&P Allergies: Allergies cefaclor [From Ceclor] Allergy (Verified 10/17/17 21:26) cyclobenzaprine [From Flexeril] Allergy (Verified 10/17/17 21:26) nabumetone [From Relafen] Allergy (Verified 10/17/17 21:26) sucralfate [From Carafate] Allergy (Verified 10/17/17 21:26) Review of Systems ROS: No change since H&P Vital Signs and I&O's Vital Signs: Temperature 99.1 F Pulse Rate [Left Radial] 100 Pulse Rate 114 Respiratory Rate 20 Blood Pressure [Left Arm] 122/74 Blood Pressure [Right Arm] 122/58 Blood Pressure 100/56 O2 Sat by Pulse Oximetry 96 Intake and Output: Intake & Output 09/02/20 09/03/20 09/04/20 09/05/20 23:59 23:59 23:59 23:59 Intake Total 2881 / 2882 1949 1300 / 1300 Balance 2881 / 2 1949 1300 / 1300 Physical Exam Oriented: Normal Eyes: Normal Ear: Normal Nose: Normal Throat: Normal Respiratory: Diminished and Wheezes Cardiovascular: Normal : Normal Auscultation: Bowel Sounds: Normal Tenderness: Epigastric and Mild Skin: Normal Musculoskeletal: Normal Psychiatric: Normal Mood Description: Calm and Appropriate Affect: Normal Speech Pattern: Clear and Appropriate Laboratory and Diagnostics Result Diagrams: 09/06/20 05:30 09/06/20 05:30 Labs: 09/03/20 07:39 Stool Stool Culture - Final 09/03/20 07:39 Stool - Final 09/03/20 07:47 Blood Blood Culture - Final Escherichia Coli 09/03/20 07:42 Blood Blood Culture - Final Escherichia Coli 09/03/20 15:55 Urine,Clean Catch Urine Culture - Final 09/04/20 15:15 Urine,Catheterized Urine Culture - Preliminary Laboratory WBC 30.5 X10^3/uL (3.6-10.0) H* D 09/04/20 07:00 RBC 3.56 X10^6/uL (3.5-5.4) 09/04/20 07:00 Hgb 8.4 g/dL (12.0-16.0) L 09/04/20 07:00 Hct 26.5 % (36.0-47.0) L 09/04/20 07:00 MCV 74.4 fL (80.0-100.0) L 09/04/20 07:00 MCH 23.5 pg (27.0-34.0) L 09/04/20 07:00 MCHC 31.6 g/dL (33.0-35.0) L 09/04/20 07:00 RDW 19.3 % (11.6-16.5) H 09/04/20 07:00 Plt Count 182 X10^3/uL (150.0-450.0) 09/04/20 07:00 Plt Count Comment Adequate (ADEQUATE) 09/04/20 07:00 MPV 8.3 fL (7.4-11.0) 09/04/20 07:00 Neut % (Auto) 89.8 % (42.0-75.0) H 09/04/20 07:00 Lymph % (Auto) 3.2 % (21.0-51.0) L 09/04/20 07:00 [place] % (Auto) 6.8 % (0.0-13.0) 09/04/20 07:00 Eos % (Auto) 0.0 % (0.9-2.9) L 09/04/20 07:00 Baso % (Auto) 0.2 % (0.2-1.0) 09/04/20 07:00 Neut # (Auto) 27.4 x10^3/uL (2.2-4.8) H 09/04/20 07:00 Lymph # (Auto) 1.0 X10^3/uL (1.3-2.9) L 09/04/20 07:00 [place] # (Auto) 2.1 x10^3/uL (0.3-0.8) H 09/04/20 07:00 Eos # (Auto) 0.0 x10^3/uL (0.0-0.2) 09/04/20 07:00 Baso # (Auto) 0.0 X10^3/uL (0.0-0.1) 09/04/20 07:00 Absolute Nucleated RBC 0.1 /100WBC 09/04/20 07:00 Total Counted 100 09/04/20 07:00 Neutrophils % (Manual) 76 % (39-76) 09/04/20 07:00 Band Neutrophils % 12 % (0-10) H 09/04/20 07:00 Lymphocytes % (Manual) 3 % (13-43) L 09/04/20 07:00 Monocytes % (Manual) 4 % (4-9) 09/04/20 07:00 Eosinophils % (Manual) 2 % (0-6) 09/03/20 07:35 Metamyelocytes % 5 09/04/20 07:00 Nucleated RBCs 2 09/03/20 07:35 Plt Morphology Comment Normal (NORMAL) 09/04/20 07:00 RBC Morphology Abnormal (NORMAL) A 09/04/20 07:00 Hypochromasia 1+ A 09/04/20 07:00 Anisocytosis Slight A 09/04/20 07:00 Microcytosis Slight A 09/04/20 07:00 Target Cells Slight A 07/17/21 07:00 Sodium 141 mmol/L (136-145) 09/04/20 07:00 Corrected Sodium 142 mmol/L (136-145) 09/04/20 07:00 Potassium 4.5 mmol/L (3.5-5.1) 09/04/20 07:00 Chloride 107 mmol/L (98-107) 09/04/20 07:00 Carbon Dioxide 27.3 mmol/L (21-32) 09/04/20 07:00 BUN 20 mg/dL (7-18) H 09/04/20 07:00 Creatinine 1.41 mg/dL (0.55-1.02) H 09/04/20 07:00 Est GFR (MDRD) Af Amer 51 (>60) L 09/04/20 07:00 Est GFR (MDRD) Non-Af 42 (>60) L 09/04/20 07:00 Glucose 127 mg/dL (65-99) H 09/04/20 07:00 Lactic Acid 2.1 mmol/L (0.4-2.0) H 09/04/20 10:05 Calcium 7.7 mg/dL (8.5-10.1) L 09/04/20 07:00 Corrected Calcium 8.7 mg/dL (8.5-10.1) 09/04/20 07:00 Total Bilirubin 0.50 mg/dL (0.2-1.0) 09/04/20 07:00 AST 48 Units/L (15-37) H 09/04/20 07:00 ALT 41 Units/L (12-78) 09/04/20 07:00 Alkaline Phosphatase 100 Units/L (46-116) 09/04/20 07:00 Total Protein 7.1 g/dL (6.4-8.2) 09/04/20 07:00 Albumin 2.7 g/dL (3.4-5.0) L 09/04/20 07:00 Globulin 4.4 g/dL (2.5-4.5) 09/04/20 07:00 Albumin/Globulin Ratio 0.6 Ratio (1.1-2.1) L 09/04/20 07:00 Amylase 48 Units/L (25-115) 09/03/20 07:35 Lipase 108 Units/L (73-393) 09/03/20 07:35 Specimen Type Clean catch urine 09/03/20 15:55 Urine Color Dark yellow (YELLOW) 09/03/20 15:55 Urine Appearance Cloudy (CLEAR) 09/03/20 15:55 Urine pH 5.0 (5.0 - 8.0) 09/03/20 15:55 Ur Specific [place] 1.020 (1.000-1.030) 09/03/20 15:55 Urine Protein 3+ (NEGATIVE) 09/03/20 15:55 Urine Glucose (UA) Negative (NEGATIVE) 09/03/20 15:55 Urine Ketones 1+ (NEGATIVE) 09/03/20 15:55 Urine Occult Blood 5+ (NEGATIVE) 09/03/20 15:55 Urine Nitrite Positive (NEGATIVE) 09/03/20 15:55 Urine Bilirubin 1+ (NEGATIVE) 09/03/20 15:55 Urine Urobilinogen 1+ (NORMAL) 09/03/20 15:55 Ur Leukocyte Esterase 2+ (NEGATIVE) 09/03/20 15:55 Urine RBC 5-10 /HPF (0-3) A 09/03/20 15:55 Urine WBC 5-10 /HPF (0-5) A 09/03/20 15:55 Ur Squamous Epith Cells Moderate /HPF (NEGATIVE) 09/03/20 15:55 Urine Bacteria 1+ /HPF (NEGATIVE) 09/03/20 15:55 Ur Culture Indicated? Yes/culture set up 09/03/20 15:55 Stool Description 75g liq/mucoid green 09/04/20 09:40 Stl Occult Blood (IFOB) Positive (NEGATIVE) A 09/03/20 07:35 Stl C. diff Tox B Gene Negative (NEGATIVE) 09/04/20 09:40 Stl C. diff [id number] Presumptive negative (NEGATIVE) 09/04/20 09:40 Stool H. pylori Ag Cancelled 09/04/20 09:40 SARS-CoV-2 (PCR) Negative (NEGATIVE) 09/03/20 07:35 Cryptosporid parvum Ag Negative (NEGATIVE) 09/04/20 09:40 Giardia lamblia Ag Negative (NEGATIVE) 09/04/20 09:40 Influenza Type A (PCR) Negative (NEGATIVE) 09/03/20 07:35 Influenza Type B (PCR) Negative (NEGATIVE) 09/03/20 07:35 RSV (PCR) Negative (NEGATIVE) 09/03/20 07:35 Plan (1) Sepsis: Status: Acute Plan: IV antibiotics IVF (2) Bacteremia: Status: Acute (3) Campylobacter diarrhea: Status: Acute
[2020-09-05 10:42] LABS: ALANINE AMINOTRANSFERASE 28 Units/L (12-78); ALBUMIN 2.4 g/dL (3.4-5.0); ALKALINE PHOSPHATASE 110 Units/L (46-116); ASPARTATE AMINO TRANSFERASE 27 Units/L (15-37); BLOOD UREA NITROGEN 12 mg/dL (7-18); CALCIUM 7.9 mg/dL (8.5-10.1); CARBON DIOXIDE 28.7 mmol/L (21-32); CHLORIDE 108 mmol/L (98-107); COR CA(FOR HYPOALB) 9.2 mg/dL (8.5-10.1); COR NA(FOR HYPERGLY) 141 mmol/L (136-145); CREATININE 1.22 mg/dL (0.55-1.02); SODIUM 140 mmol/L (136-145); TOTAL PROTEIN 6.8 g/dL (6.4-8.2); eGFR NON BLACK RACES 50 (>60)
[2020-09-05 10:45] LABS: LACTIC ACID 1.6 mmol/L (0.4-2.0)
[2020-09-05 11:01] LABS: BAND NEUTROPHILS % 4 % (0-10); HYPOCHROMASIA 1+; MICROCYTOSIS SLIGHT; PLATELET MORPHOLOGY COMMENT NORMAL (NORMAL)
--- NOTE | 2020-09-05 11:06 | RAD ---
HISTORYSOBSTUDYCHEST, 1 VIEWCOMPARISONJuly 2020TECHNIQUEPortable chest x-rayFINDINGSCardiac silhouette is enlarged. There is mild accentuation of the central pulmonary vasculature. The lungs are hypoinflated. No organized consolidation identified. Pleural spaces are clear. There is no evidence of free air or pneumothorax.IMPRESSIONCardiomegaly without pulmonary edema or organized infiltrates.Electronically signed by: MICHELLE LAZO (Sep 05, 2020 11:07:50)
[2020-09-05] MEDS: LOVENOX INJ 40 MG SYR SC SCH (11:14)
[2020-09-05] MEDS: CIPRO IV 400 MG PREMIX* 400 MG/200 ML IV.SOLN. IV SCH ×2 (11:14→21:17)
[2020-09-05] MEDS ORDERED: NS 100 ML IV 100 ML ONE (11:38)
[2020-09-05] MEDS ORDERED: DUONEB 0.5 MG/3 MG (3 mL) NEB PRN (11:43)
[2020-09-05 12:03] LABS: ABG BASE EXCESS 0.6 mmol/L (-2.0-2.0)
[2020-09-05 12:04] LABS: ABG ALLEN TEST POS
[2020-09-05] MEDS: XOPENEX 1.25 MG/3 ML NEBULE NEB SCH ×2 (12:05→16:44)
[2020-09-05 12:12] LABS: CKMB % 0.5 % (<4); TROPONIN I 0.03 ng/mL (0-1.5)
--- NOTE | 2020-09-05 12:49 | CT ---
HISTORYElevated D-dimerSTUDYCTA OF THE CHEST WITH CONTRASTCOMPARISONChest x-ray of same dayTECHNIQUEAxial CT was performed from the thoracic inlet to the upper abdomen with an arterial phase IV contrast bolus. The axial sequences are reconstructed with multiplaner reformats;volume rendered MIP and/or 3D reconstruction was generated from the original axial dataset.FINDINGSStudy quality is somewhat limited as result of timing of the contrast bolus, body habitus and respiratory related motion artifact. Within limitations of examination, there are no occlusive filling defects within the pulmonary artery tributaries fulfilling criteria for an acute pulmonary thromboembolism. Thoracic aorta caliber is normal. Thyroid gland is average size. Central airway is patent. There are no enlarged mediastinal or hilar lymph nodes of the chest.The lungs are equally expanded. Minimal hypostatic atelectatic change observed within the right lung base. No organized consolidation or architectural distortion of the lung parenchyma. There is mild elevation of the right diaphragm.The liver is enlarged. There is relative decrease of liver attenuation compared to the spleen which may be magnified by timing of the contrast bolus. The gallbladder is surgically absent. The adrenal glands are symmetric. No acute abnormalities of the upper abdomen are identified.No acute osseous abnormalities of the chest are identified.IMPRESSIONWithin limitations of the examination, no acute pulmonary thromboembolism can be identified.Hypostatic atelectatic lung changes with no organized infiltratesHepatomegaly and suspected hepatic steatosis, status post cholecystectomyRadiation dose reduction was achieved through individualized adjustment of kVP and/or mA, through adaptive statistical iterative reconstruction, and/or through automated tube current modulation.Electronically signed by: MICHELLE LAZO (Sep 05, 2020 12:50:56)
[2020-09-05] MEDS ORDERED: XOPENEX 1.25 MG/3 ML NEBULE NEB SCH (13:00)
[2020-09-05 14:24] LABS: BILIRUBIN,URINE NEGATIVE (NEGATIVE); BLOOD/HEMOGLOBIN,URINE 5+ (NEGATIVE); GLUCOSE, URINE NEGATIVE (NEGATIVE); KETONES,URINE NEGATIVE (NEGATIVE); LEUKOCYTE ESTERASE ,URINE 1+ (NEGATIVE); NITRITES,URINE NEGATIVE (NEGATIVE); PROTEIN,URINE 3+ (NEGATIVE); UROBILINOGEN,URINE NORMAL (NORMAL)
[2020-09-05 14:27] LABS: APPEARANCE,URINE SLIGHTLY HAZY (CLEAR); COLOR,URINE YELLOW (YELLOW)
[2020-09-05 14:36] LABS: BACTERIA,URINE 1+ /HPF (NEGATIVE); RBC,URINE 20-30 /HPF (0-3); SQUAMOUS EPITHELIAL CELL,UR NUMEROUS /HPF (NEGATIVE); TRANSITIONAL EPI CELLS,URINE FEW /HPF (NEGATIVE)
[2020-09-05 14:37] LABS: AMORPHOUS SEDIMENT,UR 1+ /HPF (NEGATIVE); COARSE GRANULAR CASTS,URINE MODERATE /HPF (NEGATIVE); HYALINE CASTS, URINE FEW /LPF (NEGATIVE); MUCUS,URINE FEW /HPF (NEGATIVE)
--- NOTE | 2020-09-05 16:52 | VAS ---
HISTORYElevated D-dimer and shortness of breathSTUDYVENOUS DOPPLER ULTRASOUND LOWER EXTREMITYCOMPARISONNoneTECHNIQUEGrayscale and color Doppler imaging of the bilateral lower extremitie s using compression and augmentation techniques.FINDINGSThere is normal color Doppler flow demonstrat ed from the common femoral vein through of the posterior tibial vein of the bilateral lower extremiti es. The vessels augment and compress normally with no DVT identified.IMPRESSIONNo evidence of DVT wit hin the right or left leg.Electronically signed by: MICHELLE LAZO (Sep 05, 2020 16:54:33)
[2020-09-06] MEDS: XOPENEX 1.25 MG/3 ML NEBULE NEB SCH ×6 (00:15→16:40)
[2020-09-06] MEDS: NS 1000 ML 1,000 ML IV SCH ×3 (03:52→18:18)
[2020-09-06 06:21] LABS: BASOPHILS # (AUTO) 0.2 X10^3/uL (0.0-0.1); BASOPHILS % (AUTO) 0.6 % (0.2-1.0); EOSINOPHILS # (AUTO) 0.2 x10^3/uL (0.0-0.2); EOSINOPHILS % (AUTO) 0.7 % (0.9-2.9); HEMATOCRIT 24.9 % (36.0-47.0); HEMOGLOBIN 7.9 g/dL (12.0-16.0); LYMPHOCYTES # (AUTO) 1.5 X10^3/uL (1.3-2.9); LYMPHOCYTES % (AUTO) 5.1 % (21.0-51.0); MEAN CORPUSCULAR HEMOGLOBIN 23.6 pg (27.0-34.0); MEAN CORPUSCULAR HGB CONC 31.6 g/dL (33.0-35.0); MEAN CORPUSCULAR VOLUME 74.6 fL (80.0-100.0); MEAN PLATELET VOLUME 8.5 fL (7.4-11.0); MONOCYTES # (AUTO) 1.5 x10^3/uL (0.3-0.8); MONOCYTES % (AUTO) 5.1 % (0.0-13.0); NEUTROPHILS # (AUTO) 26.4 x10^3/uL (2.2-4.8); NEUTROPHILS % (AUTO) 88.5 % (42.0-75.0); PLATELET COUNT 166 X10^3/uL (150.0-450.0); RED BLOOD COUNT 3.35 X10^6/uL (3.5-5.4); RED CELL DISTRIBUTION WIDTH 18.9 % (11.6-16.5); WHITE BLOOD COUNT 29.9 X10^3/uL (3.6-10.0)
[2020-09-06 06:40] LABS: ALANINE AMINOTRANSFERASE 27 Units/L (12-78); ALBUMIN 2.4 g/dL (3.4-5.0); ALKALINE PHOSPHATASE 124 Units/L (46-116); ASPARTATE AMINO TRANSFERASE 29 Units/L (15-37); BLOOD UREA NITROGEN 7 mg/dL (7-18); CALCIUM 8.5 mg/dL (8.5-10.1); CARBON DIOXIDE 30.7 mmol/L (21-32); CHLORIDE 108 mmol/L (98-107); COR CA(FOR HYPOALB) 9.8 mg/dL (8.5-10.1); COR NA(FOR HYPERGLY) 144 mmol/L (136-145); CREATININE 0.98 mg/dL (0.55-1.02); SODIUM 144 mmol/L (136-145); TOTAL PROTEIN 7.1 g/dL (6.4-8.2); eGFR NON BLACK RACES > 60 (>60)
[2020-09-06 07:00] LABS: BAND NEUTROPHILS % 8 % (0-10); HYPOCHROMASIA 1+; PLATELET MORPHOLOGY COMMENT NORMAL (NORMAL)
[2020-09-06 07:02] LABS: ANISOCYTOSIS SLIGHT; MICROCYTOSIS 1+
[2020-09-06] MEDS: MAGIC MOUTHWASH MT SCH ×3 (07:33→16:25)
[2020-09-06] MEDS: CIPRO IV 400 MG PREMIX* 400 MG/200 ML IV.SOLN. IV SCH ×2 (08:27→20:26)
[2020-09-06] MEDS: LOVENOX INJ 40 MG SYR SC SCH (08:27)
[2020-09-06] MEDS: LIPITOR TAB 10 MG PO SCH (08:27)
[2020-09-06] MEDS: PROTONIX TAB 40 MG PO SCH (08:28)
[2020-09-06] MEDS: NORVASC TAB 5 MG PO SCH (08:28)
[2020-09-06] MEDS: ZITHROMAX INJ 500 MG VIAL 250 MG in NS 250 ML IV 250 ML IV SCH (09:24)
--- NOTE | 2020-09-06 10:12 | PCM.PROG ---
Progress Note Progress Note for Day of Date of Exam: 09/06/20 Subjective Subjective: Pt is a 49 year old female past medical history of hypertension admitted for Sepsis, E coli Bacteremia, Campylobacter diarrhea. This morning patient reports some improvement in symptoms and weakness. She did not have any fevers overnight. Labs/imaging: Wbc 29, Hgb 7.9, Plt 166, Na 144, K 3.9, Creatinine 0.98, Glucose 113, Urine culture NGTD, Blood culture E coli pansensitive, Repeat blood cultures pending. Stool cultures positive Campylobacter, Ova and parasites negative. Treatment course includes: Antibiotics: IV Ciprofloxacin + Zosyn, IV morphine prn for pain, Zofran prn. CTA Chest was obtained yesterday that revealed: Within limitations of the examination, no acute pulmonary thromboembolism can be identified. Hypostatic atelectatic lung changes with no organized infiltrates. Hepatomegaly and suspected hepatic steatosis, status post cholecystectomy. Cardiac enzymes negative, Lower extremity venous duplex no evidence of DVT and Echo: EF=60%. Pt has bronchodilators ordered and Incentive spirometry. Physical therapy ordered. Closely monitor and follow up labs and cultures. Time spent on clinical assessment, reviewing labs/imaging, decision making, and documentation greater t [place] 45 minutes. Past Medical Family Social History Past Med/Fam/Surg Hx: No changes since H&P Allergies: Allergies cefaclor [From Ceclor] Allergy (Verified 10/17/17 21:26) cyclobenzaprine [From Flexeril] Allergy (Verified 10/17/17 21:26) nabumetone [From Relafen] Allergy (Verified 10/17/17 21:26) sucralfate [From Carafate] Allergy (Verified 10/17/17 21:26) Review of Systems ROS: No change since H&P Vital Signs and I&O's Vital Signs: Temperature 98.1 F Pulse Rate [Left Radial] 96 Pulse Rate 93 Respiratory Rate 24 Blood Pressure [Left Arm] 154/91 Blood Pressure [Right Arm] 122/58 Blood Pressure 100/56 O2 Sat by Pulse Oximetry 98 Intake and Output: Intake & Output 09/03/20 09/04/20 09/05/20 09/06/20 23:59 23:59 23:59 23:59 Intake Total 2882 / 2882 1950 / 1950 3885 / 3885 1000 / 1000 Output Total 1800 / 1800 1400 / 1400 Balance 2882 / 2882 1950 / 1949 2084 / 2084 -400 / -400 Physical Exam Oriented: Normal Eyes: Normal Ear: Normal Nose: Normal Throat: Normal Respiratory: Diminished Cardiovascular: Normal : Normal Auscultation: Bowel Sounds: Normal Tenderness: Normal Skin: Normal Musculoskeletal: Normal Psychiatric: Normal Mood Description: Calm and Appropriate Affect: Normal Speech Pattern: Clear and Appropriate Laboratory and Diagnostics Result Diagrams: 09/06/20 05:30 09/06/20 05:30 Labs: 09/04/20 15:15 Urine,Catheterized Urine Culture - Final 09/03/20 07:39 Stool Stool Culture - Final 09/03/20 07:39 Stool - Final 09/03/20 07:47 Blood Blood Culture - Final Escherichia Coli 09/03/20 07:42 Blood Blood Culture - Final Escherichia Coli 09/03/20 15:55 Urine,Clean Catch Urine Culture - Final Laboratory WBC 29.9 X10^3/uL (3.6-10.0) H 09/06/20 05:30 RBC 3.35 X10^6/uL (3.5-5.4) L 09/06/20 05:30 Hgb 7.9 g/dL (12.0-16.0) L 09/06/20 05:30 Hct 24.9 % (36.0-47.0) L 09/06/20 05:30 MCV 74.6 fL (80.0-100.0) L 09/06/20 05:30 MCH 23.6 pg (27.0-34.0) L 09/06/20 05:30 MCHC 31.6 g/dL (33.0-35.0) L 09/06/20 05:30 RDW 18.9 % (11.6-16.5) H 09/06/20 05:30 Plt Count 166 X10^3/uL (150.0-450.0) 09/06/20 05:30 Plt Count Comment Adequate (ADEQUATE) 09/06/20 05:30 MPV 8.5 fL (7.4-11.0) 09/06/20 05:30 Neut % (Auto) 88.5 % (42.0-75.0) H 09/06/20 05:30 Lymph % (Auto) 5.1 % (21.0-51.0) L 09/06/20 05:30 [place] % (Auto) 5.1 % (0.0-13.0) 09/06/20 05:30 Eos % (Auto) 0.7 % (0.9-2.9) L 09/06/20 05:30 Baso % (Auto) 0.6 % (0.2-1.0) 09/06/20 05:30 Neut # (Auto) 26.4 x10^3/uL (2.2-4.8) H 09/06/20 05:30 Lymph # (Auto) 1.5 X10^3/uL (1.3-2.9) 09/06/20 05:30 [place] # (Auto) 1.5 x10^3/uL (0.3-0.8) H 09/06/20 05:30 Eos # (Auto) 0.2 x10^3/uL (0.0-0.2) 09/06/20 05:30 Baso # (Auto) 0.2 X10^3/uL (0.0-0.1) H 09/06/20 05:30 Absolute Nucleated RBC 0.1 /100WBC 09/06/20 05:30 Total Counted 100 09/06/20 05:30 Neutrophils % (Manual) 83 % (39-76) H 09/06/20 05:30 Band Neutrophils % 8 % (0-10) 09/06/20 05:30 Lymphocytes % (Manual) 5 % (13-43) L 09/06/20 05:30 Monocytes % (Manual) 4 % (4-9) 09/06/20 05:30 Eosinophils % (Manual) 2 % (0-6) 09/03/20 07:35 Metamyelocytes % 5 09/04/20 07:00 Nucleated RBCs 2 09/03/20 07:35 Plt Morphology Comment Normal (NORMAL) 09/06/20 05:30 RBC Morphology Abnormal (NORMAL) A 09/06/20 05:30 Hypochromasia 1+ A 09/06/20 05:30 Anisocytosis Slight A 09/06/20 05:30 Microcytosis 1+ A 09/06/20 05:30 Target Cells Slight A 09/04/20 07:00 D-Dimer > 20.00 ug/ml (0.0-0.57) H* 09/05/20 10:43 Sample Site Rrad 09/05/20 11:54 ABG pH 7.340 (7.35-7.45) L 09/05/20 11:54 ABG pCO2 50.0 mmHg (35.0-45.0) H 09/05/20 11:54 ABG pO2 51.0 mmHg (80.0-100.0) L 09/05/20 11:54 ABG HCO3 27.0 mmol/L (22-26) H 09/05/20 11:54 ABG O2 Saturation 83.0 % (90-100) L* 09/05/20 11:54 ABG Base Excess 0.6 mmol/L (-2.0-2.0) 09/05/20 11:54 Eduin Test Pos 09/05/20 11:54 A-a Gradient 36.0 mmHg 09/05/20 11:54 FiO2 21.0 09/05/20 11:54 Blood Gas Comments Pt john well elj 09/05/20 11:54 Sodium 144 mmol/L (136-145) 09/06/20 05:30 Corrected Sodium 144 mmol/L (136-145) 09/06/20 05:30 Potassium 3.9 mmol/L (3.5-5.1) 09/06/20 05:30 Chloride 108 mmol/L (98-107) H 09/06/20 05:30 Carbon Dioxide 30.7 mmol/L (21-32) 09/06/20 05:30 BUN 7 mg/dL (7-18) 09/06/20 05:30 Creatinine 0.98 mg/dL (0.55-1.02) 09/06/20 05:30 Est GFR (MDRD) Af Amer > 60 (>60) 09/06/20 05:30 Est GFR (MDRD) Non-Af > 60 (>60) 09/06/20 05:30 Glucose 113 mg/dL (65-99) H 09/06/20 05:30 Lactic Acid 1.6 mmol/L (0.4-2.0) 09/05/20 10:00 Calcium 8.5 mg/dL (8.5-10.1) 09/06/20 05:30 Corrected Calcium 9.8 mg/dL (8.5-10.1) 09/06/20 05:30 Total Bilirubin 0.30 mg/dL (0.2-1.0) 09/06/20 05:30 AST 29 Units/L (15-37) 09/06/20 05:30 ALT 27 Units/L (12-78) 09/06/20 05:30 Alkaline Phosphatase 124 Units/L (46-116) H 09/06/20 05:30 Creatine Kinase 208 Units/L (26-192) H 09/05/20 10:43 CK-MB (CK-2) 1.0 ng/mL (0-4.0) 09/05/20 10:43 CK/CKMB % Calc 0.5 % (<4) 09/05/20 10:43 Troponin I 0.03 ng/mL (0-1.5) 09/05/20 10:43 Total Protein 7.1 g/dL (6.4-8.2) 09/06/20 05:30 Albumin 2.4 g/dL (3.4-5.0) L 09/06/20 05:30 Globulin 4.7 g/dL (2.5-4.5) H 09/06/20 05:30 Albumin/Globulin Ratio 0.5 Ratio (1.1-2.1) L 09/06/20 05:30 Amylase 48 Units/L (25-115) 09/03/20 07:35 Lipase 108 Units/L (73-393) 09/03/20 07:35 Specimen Type Catherized urine 09/05/20 14:15 Urine Color Yellow (YELLOW) 09/05/20 14:15 Urine Appearance Slightly hazy (CLEAR) 09/05/20 14:15 Urine pH 5.0 (5.0 - 8.0) 09/05/20 14:15 Ur Specific [place] 1.015 (1.000-1.030) 09/05/20 14:15 Urine Protein 3+ (NEGATIVE) 09/05/20 14:15 Urine Glucose (UA) Negative (NEGATIVE) 09/05/20 14:15 Urine Ketones Negative (NEGATIVE) 09/05/20 14:15 Urine Occult Blood 5+ (NEGATIVE) 09/05/20 14:15 Urine Nitrite Negative (NEGATIVE) 09/05/20 14:15 Urine Bilirubin Negative (NEGATIVE) 09/05/20 14:15 Urine Urobilinogen Normal (NORMAL) 09/05/20 14:15 Ur Leukocyte Esterase 1+ (NEGATIVE) 09/05/20 14:15 Urine RBC 20-30 /HPF (0-3) A 09/05/20 14:15 Urine WBC 5-10 /HPF (0-5) A 09/05/20 14:15 Ur Squamous Epith Cells Numerous /HPF (NEGATIVE) 09/05/20 14:15 Ur Transition Epith Cell Few /HPF (NEGATIVE) 09/05/20 14:15 Amorphous Sediment 1+ /HPF (NEGATIVE) 09/05/20 14:15 Urine Bacteria 1+ /HPF (NEGATIVE) 09/05/20 14:15 Hyaline Casts Few /LPF (NEGATIVE) 09/05/20 14:15 Coarse Granular Casts Moderate /HPF (NEGATIVE) 09/05/20 14:15 Urine Mucus Few /HPF (NEGATIVE) 09/05/20 14:15 Ur Culture Indicated? No/not indicated 09/05/20 14:15 Stool Description 75g liq/mucoid green 09/04/20 09:40 Stl Occult Blood (IFOB) Positive (NEGATIVE) A 09/03/20 07:35 Stl C. diff Tox B Gene Negative (NEGATIVE) 09/04/20 09:40 Stl C. diff [id number] Presumptive negative (NEGATIVE) 09/04/20 09:40 Stool H. pylori Ag Cancelled 09/04/20 09:40 SARS-CoV-2 (PCR) Negative (NEGATIVE) 09/05/20 11:40 Cryptosporid parvum Ag Negative (NEGATIVE) 09/04/20 09:40 Giardia lamblia Ag Negative (NEGATIVE) 09/04/20 09:40 Influenza Type A (PCR) Negative (NEGATIVE) 09/05/20 11:40 Influenza Type B (PCR) Negative (NEGATIVE) 09/05/20 11:40 RSV (PCR) Negative (NEGATIVE) 09/05/20 11:40 Plan (1) Sepsis: Status: Acute Plan: IV antibiotics IVF (2) Bacteremia: Status: Acute (3) Campylobacter diarrhea: Status: Acute
[2020-09-06] MEDS ORDERED: PHARMACY COMMENT IV ONE (19:00)
[2020-09-07] MEDS: XOPENEX 1.25 MG/3 ML NEBULE NEB SCH ×4 (00:15→17:25)
[2020-09-07] MEDS: NS 1000 ML 1,000 ML IV SCH ×3 (04:14→20:25)
[2020-09-07 05:11] LABS: BASOPHILS # (AUTO) 0.1 X10^3/uL (0.0-0.1); BASOPHILS % (AUTO) 0.6 % (0.2-1.0); EOSINOPHILS # (AUTO) 0.3 x10^3/uL (0.0-0.2); EOSINOPHILS % (AUTO) 1.8 % (0.9-2.9); HEMATOCRIT 23.9 % (36.0-47.0); HEMOGLOBIN 7.7 g/dL (12.0-16.0); LYMPHOCYTES # (AUTO) 1.8 X10^3/uL (1.3-2.9); LYMPHOCYTES % (AUTO) 10.2 % (21.0-51.0); MEAN CORPUSCULAR HEMOGLOBIN 23.6 pg (27.0-34.0); MEAN CORPUSCULAR HGB CONC 32.2 g/dL (33.0-35.0); MEAN CORPUSCULAR VOLUME 73.2 fL (80.0-100.0); MEAN PLATELET VOLUME 8.4 fL (7.4-11.0); MONOCYTES # (AUTO) 1.9 x10^3/uL (0.3-0.8); MONOCYTES % (AUTO) 10.8 % (0.0-13.0); NEUTROPHILS # (AUTO) 13.4 x10^3/uL (2.2-4.8); NEUTROPHILS % (AUTO) 76.6 % (42.0-75.0); PLATELET COUNT 158 X10^3/uL (150.0-450.0); RED BLOOD COUNT 3.27 X10^6/uL (3.5-5.4); RED CELL DISTRIBUTION WIDTH 18.9 % (11.6-16.5); WHITE BLOOD COUNT 17.5 X10^3/uL (3.6-10.0)
[2020-09-07 05:19] LABS: ALANINE AMINOTRANSFERASE 28 Units/L (12-78); ALBUMIN 2.3 g/dL (3.4-5.0); ALKALINE PHOSPHATASE 132 Units/L (46-116); ASPARTATE AMINO TRANSFERASE 36 Units/L (15-37); BLOOD UREA NITROGEN 6 mg/dL (7-18); CALCIUM 8.7 mg/dL (8.5-10.1); CARBON DIOXIDE 31.9 mmol/L (21-32); CHLORIDE 109 mmol/L (98-107); COR CA(FOR HYPOALB) 10.1 mg/dL (8.5-10.1); CREATININE 0.86 mg/dL (0.55-1.02); SODIUM 146 mmol/L (136-145); eGFR NON BLACK RACES > 60 (>60)
[2020-09-07 05:35] LABS: BAND NEUTROPHILS % 8 % (0-10)
[2020-09-07 05:36] LABS: ANISOCYTOSIS SLIGHT; HYPOCHROMASIA 1+; PLATELET MORPHOLOGY COMMENT NORMAL (NORMAL); TARGET CELLS PRESENT
[2020-09-07] MEDS: MAGIC MOUTHWASH MT SCH ×3 (06:00→20:25)
--- NOTE | 2020-09-07 08:28 | PCM.PROG ---
Progress Note Progress Note for Day of Date of Exam: 09/07/20 Subjective Subjective: Pt is a 49 year old female past medical history of hypertension admitted for Sepsis, E coli Bacteremia, Campylobacter diarrhea. This morning patient reports feeling better, her strength is gradually improving. She is eating breakfast. Labs/imaging: Wbc 17.5, Hgb 7.7, Plt 158, Na 146, K 3.8, Creatinine 0.86, Glucose 100, Urine culture NGTD, Blood culture E coli pansensitive, Repeat blood cultures pending. Stool cultures positive Campylobacter, Ova and parasites negative. Treatment course includes: Antibiotics: IV Ciprofloxacin + Zosyn, IV morphine prn for pain, Zofran prn. Pt has bronchodilators ordered and Incentive spirometry for atelectasis. Physical therapy ordered, encourage they work aggressively with patient today. Pt reports not having a bowel movement since Sunday, will add colace. Decrease IVF NS to 75ml/h. Bladder training to remove catheter today. Will continue to monitor and follow up labs. Past Medical Family Social History Past Med/Fam/Surg Hx: No changes since H&P Allergies: Allergies cefaclor [From Ceclor] Allergy (Verified 10/17/17 21:26) cyclobenzaprine [From Flexeril] Allergy (Verified 10/17/17 21:26) nabumetone [From Relafen] Allergy (Verified 10/17/17 21:26) sucralfate [From Carafate] Allergy (Verified 10/17/17 21:26) Review of Systems ROS: No change since H&P Vital Signs and I&O's Vital Signs: Temperature 98.2 F Pulse Rate [Left Radial] 89 Pulse Rate 92 Respiratory Rate 24 Blood Pressure [Left Arm] 151/83 Blood Pressure [Right Arm] 122/58 Blood Pressure 100/56 O2 Sat by Pulse Oximetry 98 Intake and Output: Intake & Output 09/04/20 09/05/20 09/06/20 09/07/20 23:59 23:59 23:59 23:59 Intake Total 1949 / 1949 3885 / 3885 3430 / 3430 1323 / 1323 Output Total 1800 / 1800 6300 / 6300 1200 / 1200 Balance 1949 2085 / 2085 -2870 / -2870 123 / 123 Physical Exam Oriented: Normal Eyes: Normal Ear: Normal Nose: Normal Throat: Normal Respiratory: Diminished Cardiovascular: Normal : Normal Auscultation: Bowel Sounds: Normal Tenderness: Normal Skin: Normal Musculoskeletal: Normal Psychiatric: Normal Mood Description: Calm and Appropriate Affect: Normal Speech Pattern: Clear and Appropriate Laboratory and Diagnostics Result Diagrams: 09/07/20 04:44 09/07/20 04:44 Labs: 09/04/20 15:15 Urine,Catheterized Urine Culture - Final 09/03/20 07:39 Stool Stool Culture - Final 09/03/20 07:39 Stool - Final 09/03/20 07:47 Blood Blood Culture - Final Escherichia Coli 09/03/20 07:42 Blood Blood Culture - Final Escherichia Coli 09/03/20 15:55 Urine,Clean Catch Urine Culture - Final Laboratory WBC 17.5 X10^3/uL (3.6-10.0) H D 09/07/20 04:44 RBC 3.27 X10^6/uL (3.5-5.4) L 09/07/20 04:44 Hgb 7.7 g/dL (12.0-16.0) L 09/07/20 04:44 Hct 23.9 % (36.0-47.0) L 09/07/20 04:44 MCV 73.2 fL (80.0-100.0) L 09/07/20 04:44 MCH 23.6 pg (27.0-34.0) L 09/07/20 04:44 MCHC 32.2 g/dL (33.0-35.0) L 09/07/20 04:44 RDW 18.9 % (11.6-16.5) H 09/07/20 04:44 Plt Count 158 X10^3/uL (150.0-450.0) 09/07/20 04:44 Plt Count Comment Adequate (ADEQUATE) 09/07/20 04:44 MPV 8.4 fL (7.4-11.0) 09/07/20 04:44 Neut % (Auto) 76.6 % (42.0-75.0) H 09/07/20 04:44 Lymph % (Auto) 10.2 % (21.0-51.0) L 09/07/20 04:44 [place] % (Auto) 10.8 % (0.0-13.0) 09/07/20 04:44 Eos % (Auto) 1.8 % (0.9-2.9) 09/07/20 04:44 Baso % (Auto) 0.6 % (0.2-1.0) 09/07/20 04:44 Neut # (Auto) 13.4 x10^3/uL (2.2-4.8) H 09/07/20 04:44 Lymph # (Auto) 1.8 X10^3/uL (1.3-2.9) 09/07/20 04:44 [place] # (Auto) 1.9 x10^3/uL (0.3-0.8) H 09/07/20 04:44 Eos # (Auto) 0.3 x10^3/uL (0.0-0.2) H 09/07/20 04:44 Baso # (Auto) 0.1 X10^3/uL (0.0-0.1) 09/07/20 04:44 Absolute Nucleated RBC 0.2 /100WBC 09/07/20 04:44 Total Counted 100 09/07/20 04:44 Neutrophils % (Manual) 69 % (39-76) 09/07/20 04:44 Band Neutrophils % 8 % (0-10) 09/07/20 04:44 Lymphocytes % (Manual) 14 % (13-43) 09/07/20 04:44 Monocytes % (Manual) 8 % (4-9) 09/07/20 04:44 Eosinophils % (Manual) 1 % (0-6) 09/07/20 04:44 Metamyelocytes % 5 09/04/20 07:00 Nucleated RBCs 2 09/03/20 07:35 Plt Morphology Comment Normal (NORMAL) 09/07/20 04:44 RBC Morphology Abnormal (NORMAL) A 09/07/20 04:44 Hypochromasia 1+ A 09/07/20 04:44 Anisocytosis Slight A 09/07/20 04:44 Microcytosis 1+ A 09/06/20 05:30 Target Cells Present 09/07/20 04:44 D-Dimer > 20.00 ug/ml (0.0-0.57) H* 09/05/20 10:43 Sample Site Rrad 09/05/20 11:54 ABG pH 7.340 (7.35-7.45) L 09/05/20 11:54 ABG pCO2 50.0 mmHg (35.0-45.0) H 09/05/20 11:54 ABG pO2 51.0 mmHg (80.0-100.0) L 09/05/20 11:54 ABG HCO3 27.0 mmol/L (22-26) H 09/05/20 11:54 ABG O2 Saturation 83.0 % (90-100) L* 09/05/20 11:54 ABG Base Excess 0.6 mmol/L (-2.0-2.0) 09/05/20 11:54 Eduin Test Pos 09/05/20 11:54 A-a Gradient 36.0 mmHg 09/05/20 11:54 FiO2 21.0 09/05/20 11:54 Blood Gas Comments Pt john well elj 09/05/20 11:54 Sodium 146 mmol/L (136-145) H 09/07/20 04:44 Corrected Sodium TNP 09/07/20 04:44 Potassium 3.8 mmol/L (3.5-5.1) 09/07/20 04:44 Chloride 109 mmol/L (98-107) H 09/07/20 04:44 Carbon Dioxide 31.9 mmol/L (21-32) 09/07/20 04:44 BUN 6 mg/dL (7-18) L 09/07/20 04:44 Creatinine 0.86 mg/dL (0.55-1.02) 09/07/20 04:44 Est GFR (MDRD) Af Amer > 60 (>60) 09/07/20 04:44 Est GFR (MDRD) Non-Af > 60 (>60) 09/07/20 04:44 Glucose 100 mg/dL (65-99) H 09/07/20 04:44 Lactic Acid 1.6 mmol/L (0.4-2.0) 09/05/20 10:00 Calcium 8.7 mg/dL (8.5-10.1) 09/07/20 04:44 Corrected Calcium 10.1 mg/dL (8.5-10.1) 09/07/20 04:44 Total Bilirubin 0.20 mg/dL (0.2-1.0) 09/07/20 04:44 AST 36 Units/L (15-37) 09/07/20 04:44 ALT 28 Units/L (12-78) 09/07/20 04:44 Alkaline Phosphatase 132 Units/L (46-116) H 09/07/20 04:44 Creatine Kinase 208 Units/L (26-192) H 09/05/20 10:43 CK-MB (CK-2) 1.0 ng/mL (0-4.0) 09/05/20 10:43 CK/CKMB % Calc 0.5 % (<4) 09/05/20 10:43 Troponin I 0.03 ng/mL (0-1.5) 09/05/20 10:43 Total Protein 7.0 g/dL (6.4-8.2) 09/07/20 04:44 Albumin 2.3 g/dL (3.4-5.0) L 09/07/20 04:44 Globulin 4.7 g/dL (2.5-4.5) H 09/07/20 04:44 Albumin/Globulin Ratio 0.5 Ratio (1.1-2.1) L 09/07/20 04:44 Amylase 48 Units/L (25-115) 09/03/20 07:35 Lipase 108 Units/L (73-393) 09/03/20 07:35 Specimen Type Catherized urine 09/05/20 14:15 Urine Color Yellow (YELLOW) 09/05/20 14:15 Urine Appearance Slightly hazy (CLEAR) 09/05/20 14:15 Urine pH 5.0 (5.0 - 8.0) 09/05/20 14:15 Ur Specific [place] 1.015 (1.000-1.030) 09/05/20 14:15 Urine Protein 3+ (NEGATIVE) 09/05/20 14:15 Urine Glucose (UA) Negative (NEGATIVE) 09/05/20 14:15 Urine Ketones Negative (NEGATIVE) 09/05/20 14:15 Urine Occult Blood 5+ (NEGATIVE) 09/05/20 14:15 Urine Nitrite Negative (NEGATIVE) 09/05/20 14:15 Urine Bilirubin Negative (NEGATIVE) 09/05/20 14:15 Urine Urobilinogen Normal (NORMAL) 09/05/20 14:15 Ur Leukocyte Esterase 1+ (NEGATIVE) 09/05/20 14:15 Urine RBC 20-30 /HPF (0-3) A 09/05/20 14:15 Urine WBC 5-10 /HPF (0-5) A 09/05/20 14:15 Ur Squamous Epith Cells Numerous /HPF (NEGATIVE) 09/05/20 14:15 Ur Transition Epith Cell Few /HPF (NEGATIVE) 09/05/20 14:15 Amorphous Sediment 1+ /HPF (NEGATIVE) 09/05/20 14:15 Urine Bacteria 1+ /HPF (NEGATIVE) 09/05/20 14:15 Hyaline Casts Few /LPF (NEGATIVE) 09/05/20 14:15 Coarse Granular Casts Moderate /HPF (NEGATIVE) 09/05/20 14:15 Urine Mucus Few /HPF (NEGATIVE) 09/05/20 14:15 Ur Culture Indicated? No/not indicated 09/05/20 14:15 Stool Description 75g liq/mucoid green 09/04/20 09:40 Stl Occult Blood (IFOB) Positive (NEGATIVE) A 09/03/20 07:35 Stl C. diff Tox B Gene Negative (NEGATIVE) 09/04/20 09:40 Stl C. diff [id number] Presumptive negative (NEGATIVE) 09/04/20 09:40 Stool H. pylori Ag Cancelled 09/04/20 09:40 SARS-CoV-2 (PCR) Negative (NEGATIVE) 09/05/20 11:40 Cryptosporid parvum Ag Negative (NEGATIVE) 09/04/20 09:40 Giardia lamblia Ag Negative (NEGATIVE) 09/04/20 09:40 Influenza Type A (PCR) Negative (NEGATIVE) 09/05/20 11:40 Influenza Type B (PCR) Negative (NEGATIVE) 09/05/20 11:40 RSV (PCR) Negative (NEGATIVE) 09/05/20 11:40 Plan (1) Sepsis: Status: Acute Plan: IV antibiotics IVF (2) Bacteremia: Status: Acute (3) Campylobacter diarrhea: Status: Acute
[2020-09-07] MEDS: ZITHROMAX INJ 500 MG VIAL 250 MG in NS 250 ML IV 250 ML IV SCH (09:30)
[2020-09-07] MEDS: CIPRO IV 400 MG PREMIX* 400 MG/200 ML IV.SOLN. IV SCH ×2 (09:44→20:41)
[2020-09-07] MEDS: LIPITOR TAB 10 MG PO SCH (09:47)
[2020-09-07] MEDS: COLACE CAP 100 MG PO SCH ×2 (09:47→20:41)
[2020-09-07] MEDS: NORVASC TAB 5 MG PO SCH (09:47)
[2020-09-07] MEDS: PROTONIX TAB 40 MG PO SCH (09:48)
[2020-09-07] MEDS: LOVENOX INJ 40 MG SYR SC SCH (12:22)
[2020-09-08] MEDS: XOPENEX 1.25 MG/3 ML NEBULE NEB SCH ×4 (01:27→17:19)
[2020-09-08] MEDS: NS 1000 ML 1,000 ML IV SCH ×3 (03:37→20:23)
[2020-09-08 05:22] LABS: BASOPHILS # (AUTO) 0.1 X10^3/uL (0.0-0.1); BASOPHILS % (AUTO) 0.7 % (0.2-1.0); EOSINOPHILS # (AUTO) 0.3 x10^3/uL (0.0-0.2); EOSINOPHILS % (AUTO) 3.3 % (0.9-2.9); HEMATOCRIT 23.9 % (36.0-47.0); LYMPHOCYTES # (AUTO) 1.8 X10^3/uL (1.3-2.9); MEAN CORPUSCULAR HEMOGLOBIN 24.1 pg (27.0-34.0); MEAN CORPUSCULAR HGB CONC 33.3 g/dL (33.0-35.0); MEAN CORPUSCULAR VOLUME 72.3 fL (80.0-100.0); MEAN PLATELET VOLUME 8.1 fL (7.4-11.0); MONOCYTES # (AUTO) 2.1 x10^3/uL (0.3-0.8); MONOCYTES % (AUTO) 19.4 % (0.0-13.0); NEUTROPHILS # (AUTO) 6.3 x10^3/uL (2.2-4.8); NEUTROPHILS % (AUTO) 59.6 % (42.0-75.0); PLATELET COUNT 183 X10^3/uL (150.0-450.0); RED BLOOD COUNT 3.31 X10^6/uL (3.5-5.4); RED CELL DISTRIBUTION WIDTH 19.1 % (11.6-16.5); WHITE BLOOD COUNT 10.6 X10^3/uL (3.6-10.0)
[2020-09-08 05:38] LABS: ALANINE AMINOTRANSFERASE 59 Units/L (12-78); ALBUMIN 2.3 g/dL (3.4-5.0); ALKALINE PHOSPHATASE 131 Units/L (46-116); ASPARTATE AMINO TRANSFERASE 64 Units/L (15-37); BLOOD UREA NITROGEN 8 mg/dL (7-18); CALCIUM 8.7 mg/dL (8.5-10.1); CARBON DIOXIDE 34.7 mmol/L (21-32); CHLORIDE 107 mmol/L (98-107); COR CA(FOR HYPOALB) 10.1 mg/dL (8.5-10.1); CREATININE 0.91 mg/dL (0.55-1.02); SODIUM 145 mmol/L (136-145); TOTAL PROTEIN 6.9 g/dL (6.4-8.2); eGFR NON BLACK RACES > 60 (>60)
[2020-09-08 05:50] LABS: ANISOCYTOSIS SLIGHT; BAND NEUTROPHILS % 5 % (0-10); HYPOCHROMASIA 1+; PLATELET MORPHOLOGY COMMENT NORMAL (NORMAL); TARGET CELLS PRESENT
[2020-09-08] MEDS: MAGIC MOUTHWASH MT SCH ×3 (06:02→16:45)
[2020-09-08] MEDS ORDERED: MICRO K EXTEN CAP 10 MEQ PO PRN (08:27)
[2020-09-08] MEDS ORDERED: POTASSIUM CHLORIDE LIQ 20 MEQ UDC PO PRN (08:27)
[2020-09-08] MEDS ORDERED: POTASSIUM CHL 60 MEQ/NS 0.45% 500 ML IV PRN (08:27)
[2020-09-08] MEDS ORDERED: KLOR-CON PO PRN (08:27)
[2020-09-08] MEDS ORDERED: POTASSIUM CHL 40 MEQ/NS 0.45% 500 ML IV PRN (08:27)
[2020-09-08] MEDS ORDERED: K-RIDER 10 MEQ/NS 100 ML 10 MEQ/100 ML BAG IV PRN (08:27)
[2020-09-08] MEDS: CIPRO IV 400 MG PREMIX* 400 MG/200 ML IV.SOLN. IV SCH ×2 (09:57→20:25)
[2020-09-08] MEDS: COLACE CAP 100 MG PO SCH ×2 (09:58→20:23)
[2020-09-08] MEDS: LIPITOR TAB 10 MG PO SCH (09:58)
[2020-09-08] MEDS: NORVASC TAB 5 MG PO SCH (09:58)
[2020-09-08] MEDS: ZESTRIL TAB 40 MG PO SCH (09:58)
[2020-09-08] MEDS: PATIENT'S HOME MEDICATION PO SCH (09:59)
[2020-09-08] MEDS: PROTONIX TAB 40 MG PO SCH (09:59)
[2020-09-08] MEDS: LOVENOX INJ 40 MG SYR SC SCH (10:00)
[2020-09-08] MEDS: K-DUR TAB 20 MEQ PO PRN ×2 (10:53→16:19)
[2020-09-08] MEDS: ZITHROMAX INJ 500 MG VIAL 250 MG in NS 250 ML IV 250 ML IV SCH (11:00)
--- NOTE | 2020-09-08 16:54 | PCM.PROG ---
Progress Note Progress Note for Day of Date of Exam: 09/08/20 Subjective Subjective: Pt is a 49 year old female past medical history of hypertension admitted for Sepsis, E coli Bacteremia, Campylobacter diarrhea. This morning patient reports continued improvement in strength. Labs/imaging: Wbc 10.6, Hgb 8.0, Plt 183, Na 145, K 3.2, Creatinine 0.91, Glucose 97, Urine culture NGTD, Blood culture E coli pansensitive, Repeat blood cultures NGTD. Stool cultures positive Campylobacter, Ova and parasites negative. Treatment course includes: Antibiotics: IV Ciprofloxacin + Zosyn, IV morphine prn for pain, Zofran prn. Pt has bronchodilators ordered and Incentive spirometry for atelectasis. Physical therapy. Pt is having normal bowel movements again. Hypokalemia on labs, replete per protocol. Continue to monitor and follow up labs. Past Medical Family Social History Past Med/Fam/Surg Hx: No changes since H&P Allergies: Allergies cefaclor [From Ceclor] Allergy (Verified 10/17/17 21:26) cyclobenzaprine [From Flexeril] Allergy (Verified 10/17/17 21:26) nabumetone [From Relafen] Allergy (Verified 10/17/17 21:26) sucralfate [From Carafate] Allergy (Verified 10/17/17 21:26) Review of Systems ROS: No change since H&P Vital Signs and I&O's Vital Signs: Temperature 98.3 F Pulse Rate [Left Radial] 75 Pulse Rate 73 Respiratory Rate 29 Blood Pressure [Left Arm] 149/85 Blood Pressure [Right Arm] 122/58 Blood Pressure 100/56 O2 Sat by Pulse Oximetry 91 Intake and Output: Intake & Output 09/05/20 09/06/20 09/07/20 09/08/20 23:59 23:59 23:59 23:59 Intake Total 3885 / 3885 3430 / 3430 2869 / 2869 480 / 480 Output Total 1800 / 1800 6300 / 6300 1200 / 1200 Balance 2085 / 2085 -2870 / -2870 1669 / 1669 480 / 480 Physical Exam Oriented: Normal Eyes: Normal Ear: Normal Nose: Normal Throat: Normal Respiratory: Normal Cardiovascular: Normal : Normal Auscultation: Bowel Sounds: Normal Tenderness: Normal Skin: Normal Musculoskeletal: Normal Psychiatric: Normal Mood Description: Calm and Appropriate Affect: Normal Speech Pattern: Clear and Appropriate Laboratory and Diagnostics Result Diagrams: 09/08/20 04:52 09/08/20 13:22 Labs: 09/05/20 10:08 Blood Blood Culture - Preliminary 09/05/20 10:00 Blood Blood Culture - Preliminary 09/04/20 15:15 Urine,Catheterized Urine Culture - Final 09/03/20 07:39 Stool Stool Culture - Final 09/03/20 07:39 Stool - Final 09/03/20 07:47 Blood Blood Culture - Final Escherichia Coli 09/03/20 07:42 Blood Blood Culture - Final Escherichia Coli 09/03/20 15:55 Urine,Clean Catch Urine Culture - Final Laboratory WBC 10.6 X10^3/uL (3.6-10.0) H 09/08/20 04:52 RBC 3.31 X10^6/uL (3.5-5.4) L 09/08/20 04:52 Hgb 8.0 g/dL (12.0-16.0) L 09/08/20 04:52 Hct 23.9 % (36.0-47.0) L 09/08/20 04:52 MCV 72.3 fL (80.0-100.0) L 09/08/20 04:52 MCH 24.1 pg (27.0-34.0) L 09/08/20 04:52 MCHC 33.3 g/dL (33.0-35.0) 09/08/20 04:52 RDW 19.1 % (11.6-16.5) H 09/08/20 04:52 Plt Count 183 X10^3/uL (150.0-450.0) 09/08/20 04:52 Plt Count Comment Adequate (ADEQUATE) 09/08/20 04:52 MPV 8.1 fL (7.4-11.0) 09/08/20 04:52 Neut % (Auto) 59.6 % (42.0-75.0) 09/08/20 04:52 Lymph % (Auto) 17.0 % (21.0-51.0) L 09/08/20 04:52 [place] % (Auto) 19.4 % (0.0-13.0) H 09/08/20 04:52 Eos % (Auto) 3.3 % (0.9-2.9) H 09/08/20 04:52 Baso % (Auto) 0.7 % (0.2-1.0) 09/08/20 04:52 Neut # (Auto) 6.3 x10^3/uL (2.2-4.8) H 09/08/20 04:52 Lymph # (Auto) 1.8 X10^3/uL (1.3-2.9) 09/08/20 04:52 [place] # (Auto) 2.1 x10^3/uL (0.3-0.8) H 09/08/20 04:52 Eos # (Auto) 0.3 x10^3/uL (0.0-0.2) H 09/08/20 04:52 Baso # (Auto) 0.1 X10^3/uL (0.0-0.1) 09/08/20 04:52 Absolute Nucleated RBC 0.2 /100WBC 09/08/20 04:52 Total Counted 100 09/08/20 04:52 Neutrophils % (Manual) 56 % (39-76) 09/08/20 04:52 Band Neutrophils % 5 % (0-10) 09/08/20 04:52 Lymphocytes % (Manual) 21 % (13-43) 09/08/20 04:52 Monocytes % (Manual) 16 % (4-9) H 09/08/20 04:52 Eosinophils % (Manual) 2 % (0-6) 09/08/20 04:52 Metamyelocytes % 5 09/04/20 07:00 Nucleated RBCs 2 09/03/20 07:35 Plt Morphology Comment Normal (NORMAL) 09/08/20 04:52 RBC Morphology Abnormal (NORMAL) A 09/08/20 04:52 Hypochromasia 1+ A 09/08/20 04:52 Anisocytosis Slight A 09/08/20 04:52 Microcytosis 1+ A 09/06/20 05:30 Target Cells Present 09/08/20 04:52 D-Dimer > 20.00 ug/ml (0.0-0.57) H* 09/05/20 10:43 Sample Site Rrad 09/05/20 11:54 ABG pH 7.340 (7.35-7.45) L 09/05/20 11:54 ABG pCO2 50.0 mmHg (35.0-45.0) H 09/05/20 11:54 ABG pO2 51.0 mmHg (80.0-100.0) L 09/05/20 11:54 ABG HCO3 27.0 mmol/L (22-26) H 09/05/20 11:54 ABG O2 Saturation 83.0 % (90-100) L* 09/05/20 11:54 ABG Base Excess 0.6 mmol/L (-2.0-2.0) 09/05/20 11:54 Eduin Test Pos 09/05/20 11:54 A-a Gradient 36.0 mmHg 09/05/20 11:54 FiO2 21.0 09/05/20 11:54 Blood Gas Comments Pt john well elj 09/05/20 11:54 Sodium 145 mmol/L (136-145) 09/08/20 04:52 Corrected Sodium TNP 09/08/20 04:52 Potassium 3.5 mmol/L (3.5-5.1) 09/08/20 13:22 Chloride 107 mmol/L (98-107) 09/08/20 04:52 Carbon Dioxide 34.7 mmol/L (21-32) H 09/08/20 04:52 BUN 8 mg/dL (7-18) 09/08/20 04:52 Creatinine 0.91 mg/dL (0.55-1.02) 09/08/20 04:52 Est GFR (MDRD) Af Amer > 60 (>60) 09/08/20 04:52 Est GFR (MDRD) Non-Af > 60 (>60) 09/08/20 04:52 Glucose 97 mg/dL (65-99) 09/08/20 04:52 Lactic Acid 1.6 mmol/L (0.4-2.0) 09/05/20 10:00 Calcium 8.7 mg/dL (8.5-10.1) 09/08/20 04:52 Corrected Calcium 10.1 mg/dL (8.5-10.1) 09/08/20 04:52 Magnesium 2.3 mg/dL (1.7-2.9) 09/08/20 04:52 Total Bilirubin 0.20 mg/dL (0.2-1.0) 09/08/20 04:52 AST 64 Units/L (15-37) H 09/08/20 04:52 ALT 59 Units/L (12-78) 09/08/20 04:52 Alkaline Phosphatase 131 Units/L (46-116) H 09/08/20 04:52 Creatine Kinase 208 Units/L (26-192) H 09/05/20 10:43 CK-MB (CK-2) 1.0 ng/mL (0-4.0) 09/05/20 10:43 CK/CKMB % Calc 0.5 % (<4) 09/05/20 10:43 Troponin I 0.03 ng/mL (0-1.5) 09/05/20 10:43 Total Protein 6.9 g/dL (6.4-8.2) 09/08/20 04:52 Albumin 2.3 g/dL (3.4-5.0) L 09/08/20 04:52 Globulin 4.6 g/dL (2.5-4.5) H 09/08/20 04:52 Albumin/Globulin Ratio 0.5 Ratio (1.1-2.1) L 09/08/20 04:52 Amylase 48 Units/L (25-115) 09/03/20 07:35 Lipase 108 Units/L (73-393) 09/03/20 07:35 Specimen Type Catherized urine 09/05/20 14:15 Urine Color Yellow (YELLOW) 09/05/20 14:15 Urine Appearance Slightly hazy (CLEAR) 09/05/20 14:15 Urine pH 5.0 (5.0 - 8.0) 09/05/20 14:15 Ur Specific [place] 1.015 (1.000-1.030) 09/05/20 14:15 Urine Protein 3+ (NEGATIVE) 09/05/20 14:15 Urine Glucose (UA) Negative (NEGATIVE) 09/05/20 14:15 Urine Ketones Negative (NEGATIVE) 09/05/20 14:15 Urine Occult Blood 5+ (NEGATIVE) 09/05/20 14:15 Urine Nitrite Negative (NEGATIVE) 09/05/20 14:15 Urine Bilirubin Negative (NEGATIVE) 09/05/20 14:15 Urine Urobilinogen Normal (NORMAL) 09/05/20 14:15 Ur Leukocyte Esterase 1+ (NEGATIVE) 09/05/20 14:15 Urine RBC 20-30 /HPF (0-3) A 09/05/20 14:15 Urine WBC 5-10 /HPF (0-5) A 09/05/20 14:15 Ur Squamous Epith Cells Numerous /HPF (NEGATIVE) 09/05/20 14:15 Ur Transition Epith Cell Few /HPF (NEGATIVE) 09/05/20 14:15 Amorphous Sediment 1+ /HPF (NEGATIVE) 09/05/20 14:15 Urine Bacteria 1+ /HPF (NEGATIVE) 09/05/20 14:15 Hyaline Casts Few /LPF (NEGATIVE) 09/05/20 14:15 Coarse Granular Casts Moderate /HPF (NEGATIVE) 09/05/20 14:15 Urine Mucus Few /HPF (NEGATIVE) 09/05/20 14:15 Ur Culture Indicated? No/not indicated 09/05/20 14:15 Stool Description 75g liq/mucoid green 09/04/20 09:40 Stl Occult Blood (IFOB) Positive (NEGATIVE) A 09/03/20 07:35 Stl C. diff Tox B Gene Negative (NEGATIVE) 09/04/20 09:40 Stl C. diff [id number] Presumptive negative (NEGATIVE) 09/04/20 09:40 Stool H. pylori Ag Cancelled 09/04/20 09:40 SARS-CoV-2 (PCR) Negative (NEGATIVE) 09/05/20 11:40 Cryptosporid parvum Ag Negative (NEGATIVE) 09/04/20 09:40 Giardia lamblia Ag Negative (NEGATIVE) 09/04/20 09:40 Influenza Type A (PCR) Negative (NEGATIVE) 09/05/20 11:40 Influenza Type B (PCR) Negative (NEGATIVE) 09/05/20 11:40 RSV (PCR) Negative (NEGATIVE) 09/05/20 11:40 Plan (1) Sepsis: Status: Acute Plan: IV antibiotics IVF (2) Bacteremia: Status: Acute (3) Campylobacter diarrhea: Status: Acute
[2020-09-08] MEDS ORDERED: NS 100 ML IV 100 ML ONE (22:25)
[2020-09-09] MEDS: XOPENEX 1.25 MG/3 ML NEBULE NEB SCH ×2 (00:45→06:10)
[2020-09-09 05:23] LABS: BASOPHILS # (AUTO) 0.1 X10^3/uL (0.0-0.1); BASOPHILS % (AUTO) 0.9 % (0.2-1.0); EOSINOPHILS # (AUTO) 0.3 x10^3/uL (0.0-0.2); EOSINOPHILS % (AUTO) 2.1 % (0.9-2.9); HEMOGLOBIN 8.1 g/dL (12.0-16.0); LYMPHOCYTES # (AUTO) 2.3 X10^3/uL (1.3-2.9); LYMPHOCYTES % (AUTO) 19.1 % (21.0-51.0); MEAN CORPUSCULAR HEMOGLOBIN 23.4 pg (27.0-34.0); MEAN CORPUSCULAR HGB CONC 32.2 g/dL (33.0-35.0); MEAN CORPUSCULAR VOLUME 72.7 fL (80.0-100.0); MEAN PLATELET VOLUME 8.3 fL (7.4-11.0); MONOCYTES # (AUTO) 2.4 x10^3/uL (0.3-0.8); MONOCYTES % (AUTO) 19.7 % (0.0-13.0); NEUTROPHILS # (AUTO) 7.1 x10^3/uL (2.2-4.8); NEUTROPHILS % (AUTO) 58.2 % (42.0-75.0); PLATELET COUNT 215 X10^3/uL (150.0-450.0); RED BLOOD COUNT 3.45 X10^6/uL (3.5-5.4); RED CELL DISTRIBUTION WIDTH 18.9 % (11.6-16.5); WHITE BLOOD COUNT 12.1 X10^3/uL (3.6-10.0)
[2020-09-09 05:34] LABS: ALANINE AMINOTRANSFERASE 64 Units/L (12-78); ALBUMIN 2.5 g/dL (3.4-5.0); ALKALINE PHOSPHATASE 121 Units/L (46-116); ASPARTATE AMINO TRANSFERASE 60 Units/L (15-37); BLOOD UREA NITROGEN 12 mg/dL (7-18); CALCIUM 8.6 mg/dL (8.5-10.1); CARBON DIOXIDE 31.2 mmol/L (21-32); CHLORIDE 106 mmol/L (98-107); COR CA(FOR HYPOALB) 9.8 mg/dL (8.5-10.1); CREATININE 0.94 mg/dL (0.55-1.02); SODIUM 143 mmol/L (136-145); TOTAL PROTEIN 7.3 g/dL (6.4-8.2); eGFR NON BLACK RACES > 60 (>60)
[2020-09-09] MEDS: NS 1000 ML 1,000 ML IV SCH (05:38)
[2020-09-09 06:10] LABS: BAND NEUTROPHILS % 4 % (0-10); PLATELET MORPHOLOGY COMMENT NORMAL (NORMAL)
[2020-09-09 06:11] LABS: ANISOCYTOSIS SLIGHT; HYPOCHROMASIA 1+; MICROCYTOSIS SLIGHT; TARGET CELLS PRESENT
[2020-09-09] MEDS: MAGIC MOUTHWASH MT SCH (06:30)
[2020-09-09 08:01] VITALS: BP 166/89
--- NOTE | 2020-09-09 08:12 | W.DIS.FURT ---
Summary of Discharge Discharge Summary of Date Date of Exam: 09/09/20 Admission Date Date of Admission: 09/03/20 Admission Diagnosis Patient Problems (Updated 09/04/20 @ 11:46 by Yobany Corea) Acute infectious diarrhea (Acute) A09 Hospital Course: Pt is a 49 year old female past medical history of hypertension admitted for Sepsis, E coli Bacteremia, Campylobacter diarrhea. Hospital/treatment course included:IVF, Antibiotics: IV Ciprofloxacin + Zosyn, IV morphine prn for pain, Zofran prn. Labs/imaging: Wbc 12.1, Hgb 8.1, Plt 215, Na 143, K 3.3, Creatinine 0.94, Glucose 93, Urine culture NGTD, Blood culture E coli pansensitive, Repeat blood cultures NGTD. Stool cultures positive Campylobacter, Ova and parasites negative. Pt did develop atelectasis in lungs during hospital course and had bronchodilators ordered and Incentive spirometry. On discharge pt was having normal bowel movements again. Rx ciprofloxacin to complete 14 day course. Ambulatory O2 sat to be determined this morning and if required home O2 will be arranged. Outpatient sleep study ordered to evaluate WENCESLAO. Pt discharged in stable condition, instructed to follow up with pcp in 3-5 days. Vital Signs: Vital Signs (72 hours) 09/06/20 09:00 09/06/20 10:00 09/06/20 11:00 Temperature 98.2 F Pulse Rate Pulse Rate [Left Radial] 96 H 96 H 94 H Respiratory Rate 24 26 H 32 H Blood Pressure Blood Pressure [Left Arm] 154/91 143/80 137/84 O2 Sat by Pulse Oximetry 98 99 98 09/06/20 12:00 09/06/20 12:11 09/06/20 13:00 Temperature 98.3 F Pulse Rate 92 H Pulse Rate [Left Radial] 97 H 103 H Respiratory Rate 35 H 24 Blood Pressure Blood Pressure [Left Arm] 134/59 155/91 O2 Sat by Pulse Oximetry 98 100 98 09/06/20 14:00 09/06/20 15:00 09/06/20 16:00 Temperature 98.2 F Pulse Rate Pulse Rate [Left Radial] 101 H 98 H 99 H Respiratory Rate 29 H 26 H 24 Blood Pressure Blood Pressure [Left Arm] 150/92 139/77 146/89 O2 Sat by Pulse Oximetry 95 99 97 09/06/20 17:00 09/06/20 18:00 09/06/20 19:00 Temperature Pulse Rate Pulse Rate [Left Radial] 101 H 100 H 99 H Respiratory Rate 20 24 22 Blood Pressure Blood Pressure [Left Arm] 147/82 156/88 178/89 O2 Sat by Pulse Oximetry 97 98 100 09/06/20 20:00 09/06/20 21:00 09/06/20 22:00 Temperature 98.6 F Pulse Rate 92 H Pulse Rate [Left Radial] 97 H 94 H 89 Respiratory Rate 26 H 30 H 27 H Blood Pressure Blood Pressure [Left Arm] 153/86 150/86 173/85 O2 Sat by Pulse Oximetry 99 99 99 09/06/20 23:00 09/07/20 00:00 09/07/20 01:00 Temperature 98.6 F Pulse Rate Pulse Rate [Left Radial] 99 H 87 95 H Respiratory Rate 27 H 26 H 26 H Blood Pressure Blood Pressure [Left Arm] 143/94 150/88 153/91 O2 Sat by Pulse Oximetry 99 100 97 09/07/20 02:00 09/07/20 03:00 09/07/20 04:00 Temperature 98.2 F Pulse Rate Pulse Rate [Left Radial] 93 H 96 H 89 Respiratory Rate 22 30 H 24 Blood Pressure Blood Pressure [Left Arm] 161/86 154/85 O2 Sat by Pulse Oximetry 93 L 96 100 09/07/20 05:00 09/07/20 06:00 09/07/20 07:00 Temperature Pulse Rate Pulse Rate [Left Radial] 92 H 89 85 Respiratory Rate 24 24 24 Blood Pressure Blood Pressure [Left Arm] 141/68 151/83 132/75 O2 Sat by Pulse Oximetry 97 98 99 09/07/20 08:00 09/07/20 09:00 09/07/20 10:00 Temperature 98.1 F Pulse Rate Pulse Rate [Left Radial] 93 H 94 H 92 H Respiratory Rate 27 H 27 H 30 H Blood Pressure Blood Pressure [Left Arm] 152/99 155/92 148/83 O2 Sat by Pulse Oximetry 99 97 99 09/07/20 11:00 09/07/20 12:00 09/07/20 13:00 Temperature 98.0 F Pulse Rate Pulse Rate [Left Radial] 85 85 93 H Respiratory Rate 30 H 27 H 30 H Blood Pressure Blood Pressure [Left Arm] 155/85 152/82 149/85 O2 Sat by Pulse Oximetry 99 100 93 L 07/20/21 13:40 09/07/20 14:00 09/07/20 15:00 Temperature Pulse Rate 92 H Pulse Rate [Left Radial] 90 97 H Respiratory Rate 27 H 30 H Blood Pressure Blood Pressure [Left Arm] 138/70 131/74 O2 Sat by Pulse Oximetry 92 L 91 L 98 09/07/20 16:00 09/07/20 17:00 09/07/20 17:25 Temperature Pulse Rate 90 Pulse Rate [Left Radial] 97 H 97 H Respiratory Rate 30 H 30 H Blood Pressure Blood Pressure [Left Arm] 131/74 131/74 O2 Sat by Pulse Oximetry 98 98 95 09/07/20 18:00 09/07/20 19:00 09/07/20 20:00 Temperature 99.5 F Pulse Rate Pulse Rate [Left Radial] 92 H 96 H 94 H Respiratory Rate 27 H 36 H 29 H Blood Pressure Blood Pressure [Left Arm] 141/88 148/78 140/79 O2 Sat by Pulse Oximetry 93 L 94 L 94 L 09/07/20 21:00 09/07/20 22:00 09/07/20 23:00 Temperature Pulse Rate Pulse Rate [Left Radial] 93 H 84 81 Respiratory Rate 29 H 35 H 24 Blood Pressure Blood Pressure [Left Arm] 151/87 160/89 167/92 O2 Sat by Pulse Oximetry 95 100 100 09/08/20 00:00 09/08/20 01:00 09/08/20 01:27 Temperature 98.8 F Pulse Rate 87 Pulse Rate [Left Radial] 91 H 85 Respiratory Rate 29 H 27 H Blood Pressure Blood Pressure [Left Arm] 167/92 183/92 O2 Sat by Pulse Oximetry 93 L 92 L 99 09/08/20 02:00 09/08/20 03:00 09/08/20 04:00 Temperature 98.5 F Pulse Rate Pulse Rate [Left Radial] 92 H 85 78 Respiratory Rate 27 H 24 24 Blood Pressure Blood Pressure [Left Arm] 164/92 155/94 158/92 O2 Sat by Pulse Oximetry 99 99 98 09/08/20 05:00 09/08/20 06:00 09/08/20 07:00 Temperature Pulse Rate Pulse Rate [Left Radial] 86 69 70 Respiratory Rate 36 H 26 H 17 Blood Pressure Blood Pressure [Left Arm] 164/93 183/88 169/90 O2 Sat by Pulse Oximetry 100 99 96 09/08/20 08:00 09/08/20 09:00 09/08/20 10:00 Temperature 98.5 F Pulse Rate Pulse Rate [Left Radial] 70 74 76 Respiratory Rate 26 H 30 H 30 H Blood Pressure Blood Pressure [Left Arm] 176/98 163/84 169/93 O2 Sat by Pulse Oximetry 100 90 L 92 L 09/08/20 11:00 09/08/20 12:00 09/08/20 13:00 Temperature 98.3 F Pulse Rate Pulse Rate [Left Radial] 77 73 76 Respiratory Rate 30 H 28 H 30 H Blood Pressure Blood Pressure [Left Arm] 155/84 177/91 154/87 O2 Sat by Pulse Oximetry 87 L 91 L 92 L 09/08/20 13:27 09/08/20 14:00 09/08/20 15:00 Temperature Pulse Rate 73 Pulse Rate [Left Radial] 75 78 Respiratory Rate 29 H 31 H Blood Pressure Blood Pressure [Left Arm] 149/85 148/83 O2 Sat by Pulse Oximetry 94 L 91 L 88 L 09/08/20 16:00 09/08/20 17:00 09/08/20 17:19 Temperature 99.5 F Pulse Rate 78 Pulse Rate [Left Radial] 75 75 Respiratory Rate 30 H 30 H Blood Pressure Blood Pressure [Left Arm] 144/84 144/84 O2 Sat by Pulse Oximetry 89 L 89 L 92 L 09/08/20 18:00 09/08/20 19:00 09/08/20 20:00 Temperature 99.6 F Pulse Rate Pulse Rate [Left Radial] 77 77 73 Respiratory Rate 26 H 28 H 24 Blood Pressure Blood Pressure [Left Arm] 148/80 142/79 140/70 O2 Sat by Pulse Oximetry 91 L 92 L 93 L 09/08/20 21:00 09/08/20 22:00 09/08/20 23:00 Temperature Pulse Rate Pulse Rate [Left Radial] 74 71 69 Respiratory Rate 25 H 22 20 Blood Pressure Blood Pressure [Left Arm] 138/72 150/68 152/69 O2 Sat by Pulse Oximetry 93 L 91 L 92 L 09/09/20 00:00 09/09/20 00:45 09/09/20 01:00 Temperature 98.8 F Pulse Rate 74 Pulse Rate [Left Radial] 70 83 Respiratory Rate 26 H 22 Blood Pressure Blood Pressure [Left Arm] 175/91 167/94 O2 Sat by Pulse Oximetry 90 L 93 L 90 L 09/09/20 02:00 09/09/20 03:00 09/09/20 04:00 Temperature 99.2 F Pulse Rate Pulse Rate [Left Radial] 71 72 71 Respiratory Rate 26 H 27 H 24 Blood Pressure Blood Pressure [Left Arm] 159/85 151/87 163/85 O2 Sat by Pulse Oximetry 89 L 97 99 09/09/20 05:00 09/09/20 06:00 09/09/20 07:00 Temperature 98.4 F Pulse Rate Pulse Rate [Left Radial] 67 70 Respiratory Rate 26 H 26 H Blood Pressure 166/89 Blood Pressure [Left Arm] 164/93 158/88 O2 Sat by Pulse Oximetry 99 98 09/09/20 07:52 Temperature Pulse Rate 78 Pulse Rate [Left Radial] Respiratory Rate 32 H Blood Pressure Blood Pressure [Left Arm] O2 Sat by Pulse Oximetry 90 L Labs: Laboratory Last Values WBC 12.1 X10^3/uL (3.6-10.0) H 09/09/20 04:44 RBC 3.45 X10^6/uL (3.5-5.4) L 09/09/20 04:44 Hgb 8.1 g/dL (12.0-16.0) L 09/09/20 04:44 Hct 25.0 % (36.0-47.0) L 09/09/20 04:44 MCV 72.7 fL (80.0-100.0) L 09/09/20 04:44 MCH 23.4 pg (27.0-34.0) L 09/09/20 04:44 MCHC 32.2 g/dL (33.0-35.0) L 09/09/20 04:44 RDW 18.9 % (11.6-16.5) H 09/09/20 04:44 Plt Count 215 X10^3/uL (150.0-450.0) 09/09/20 04:44 Plt Count Comment Adequate (ADEQUATE) 09/09/20 04:44 MPV 8.3 fL (7.4-11.0) 09/09/20 04:44 Neut % (Auto) 58.2 % (42.0-75.0) 09/09/20 04:44 Lymph % (Auto) 19.1 % (21.0-51.0) L 09/09/20 04:44 Karnes % (Auto) 19.7 % (0.0-13.0) H 09/09/20 04:44 Eos % (Auto) 2.1 % (0.9-2.9) 09/09/20 04:44 Baso % (Auto) 0.9 % (0.2-1.0) 09/09/20 04:44 Neut # (Auto) 7.1 x10^3/uL (2.2-4.8) H 09/09/20 04:44 Lymph # (Auto) 2.3 X10^3/uL (1.3-2.9) 09/09/20 04:44 Karnes # (Auto) 2.4 x10^3/uL (0.3-0.8) H 09/09/20 04:44 Eos # (Auto) 0.3 x10^3/uL (0.0-0.2) H 09/09/20 04:44 Baso # (Auto) 0.1 X10^3/uL (0.0-0.1) 09/09/20 04:44 Absolute Nucleated RBC 1.1 /100WBC 09/09/20 04:44 Total Counted 100 09/09/20 04:44 Neutrophils % (Manual) 51 % (39-76) 09/09/20 04:44 Band Neutrophils % 4 % (0-10) 09/09/20 04:44 Lymphocytes % (Manual) 27 % (13-43) 09/09/20 04:44 Monocytes % (Manual) 15 % (4-9) H 09/09/20 04:44 Eosinophils % (Manual) 3 % (0-6) 09/09/20 04:44 Metamyelocytes % 5 09/04/20 07:00 Nucleated RBCs 2 09/03/20 07:35 Plt Morphology Comment Normal (NORMAL) 09/09/20 04:44 RBC Morphology Abnormal (NORMAL) A 09/09/20 04:44 Hypochromasia 1+ A 09/09/20 04:44 Anisocytosis Slight A 09/09/20 04:44 Microcytosis Slight A 09/09/20 04:44 Target Cells Present 09/09/20 04:44 D-Dimer > 20.00 ug/ml (0.0-0.57) H* 09/05/20 10:43 Sample Site Rrad 09/05/20 11:54 ABG pH 7.340 (7.35-7.45) L 09/05/20 11:54 ABG pCO2 50.0 mmHg (35.0-45.0) H 09/05/20 11:54 ABG pO2 51.0 mmHg (80.0-100.0) L 09/05/20 11:54 ABG HCO3 27.0 mmol/L (22-26) H 09/05/20 11:54 ABG O2 Saturation 83.0 % (90-100) L* 09/05/20 11:54 ABG Base Excess 0.6 mmol/L (-2.0-2.0) 09/05/20 11:54 Eduin Test Pos 09/05/20 11:54 A-a Gradient 36.0 mmHg 09/05/20 11:54 FiO2 21.0 09/05/20 11:54 Blood Gas Comments Pt john well elj 09/05/20 11:54 Sodium 143 mmol/L (136-145) 09/09/20 04:44 Corrected Sodium TNP 09/09/20 04:44 Potassium 3.3 mmol/L (3.5-5.1) L 09/09/20 04:44 Chloride 106 mmol/L (98-107) 09/09/20 04:44 Carbon Dioxide 31.2 mmol/L (21-32) 09/09/20 04:44 BUN 12 mg/dL (7-18) 09/09/20 04:44 Creatinine 0.94 mg/dL (0.55-1.02) 09/09/20 04:44 Est GFR (MDRD) Af Amer > 60 (>60) 09/09/20 04:44 Est GFR (MDRD) Non-Af > 60 (>60) 09/09/20 04:44 Glucose 93 mg/dL (65-99) 09/09/20 04:44 Lactic Acid 1.6 mmol/L (0.4-2.0) 09/05/20 10:00 Calcium 8.6 mg/dL (8.5-10.1) 09/09/20 04:44 Corrected Calcium 9.8 mg/dL (8.5-10.1) 09/09/20 04:44 Magnesium 2.3 mg/dL (1.7-2.9) 09/08/20 04:52 Total Bilirubin 0.30 mg/dL (0.2-1.0) 09/09/20 04:44 AST 60 Units/L (15-37) H 09/09/20 04:44 ALT 64 Units/L (12-78) 09/09/20 04:44 Alkaline Phosphatase 121 Units/L (46-116) H 09/09/20 04:44 Creatine Kinase 208 Units/L (26-192) H 09/05/20 10:43 CK-MB (CK-2) 1.0 ng/mL (0-4.0) 09/05/20 10:43 CK/CKMB % Calc 0.5 % (<4) 09/05/20 10:43 Troponin I 0.03 ng/mL (0-1.5) 09/05/20 10:43 Total Protein 7.3 g/dL (6.4-8.2) 09/09/20 04:44 Albumin 2.5 g/dL (3.4-5.0) L 09/09/20 04:44 Globulin 4.8 g/dL (2.5-4.5) H 09/09/20 04:44 Albumin/Globulin Ratio 0.5 Ratio (1.1-2.1) L 09/09/20 04:44 Amylase 48 Units/L (25-115) 09/03/20 07:35 Lipase 108 Units/L (73-393) 09/03/20 07:35 Specimen Type Catherized urine 09/05/20 14:15 Urine Color Yellow (YELLOW) 09/05/20 14:15 Urine Appearance Slightly hazy (CLEAR) 09/05/20 14:15 Urine pH 5.0 (5.0 - 8.0) 09/05/20 14:15 Ur Specific Neon 1.015 (1.000-1.030) 09/05/20 14:15 Urine Protein 3+ (NEGATIVE) 09/05/20 14:15 Urine Glucose (UA) Negative (NEGATIVE) 09/05/20 14:15 Urine Ketones Negative (NEGATIVE) 09/05/20 14:15 Urine Occult Blood 5+ (NEGATIVE) 09/05/20 14:15 Urine Nitrite Negative (NEGATIVE) 09/05/20 14:15 Urine Bilirubin Negative (NEGATIVE) 09/05/20 14:15 Urine Urobilinogen Normal (NORMAL) 09/05/20 14:15 Ur Leukocyte Esterase 1+ (NEGATIVE) 09/05/20 14:15 Urine RBC 20-30 /HPF (0-3) A 09/05/20 14:15 Urine WBC 5-10 /HPF (0-5) A 09/05/20 14:15 Ur Squamous Epith Cells Numerous /HPF (NEGATIVE) 09/05/20 14:15 Ur Transition Epith Cell Few /HPF (NEGATIVE) 09/05/20 14:15 Amorphous Sediment 1+ /HPF (NEGATIVE) 09/05/20 14:15 Urine Bacteria 1+ /HPF (NEGATIVE) 09/05/20 14:15 Hyaline Casts Few /LPF (NEGATIVE) 09/05/20 14:15 Coarse Granular Casts Moderate /HPF (NEGATIVE) 09/05/20 14:15 Urine Mucus Few /HPF (NEGATIVE) 09/05/20 14:15 Ur Culture Indicated? No/not indicated 09/05/20 14:15 Stool Description 75g liq/mucoid green 09/04/20 09:40 Stl Occult Blood (IFOB) Positive (NEGATIVE) A 09/03/20 07:35 Stl C. diff Tox B Gene Negative (NEGATIVE) 09/04/20 09:40 Stl C. diff [id number] Presumptive negative (NEGATIVE) 09/04/20 09:40 Stool H. pylori Ag Cancelled 09/04/20 09:40 SARS-CoV-2 (PCR) Negative (NEGATIVE) 09/05/20 11:40 Cryptosporid parvum Ag Negative (NEGATIVE) 09/04/20 09:40 Giardia lamblia Ag Negative (NEGATIVE) 09/04/20 09:40 Influenza Type A (PCR) Negative (NEGATIVE) 09/05/20 11:40 Influenza Type B (PCR) Negative (NEGATIVE) 09/05/20 11:40 RSV (PCR) Negative (NEGATIVE) 09/05/20 11:40 Reason For Visit: SEPSIS, INFECTIOUS DIARRHEA, CAMPY Discharge Date Discharge Date: 09/09/20 Discharge Diagnosis All Active Problems (Updated 09/04/20 @ 11:46 by Yobany Corea) Campylobacter diarrhea (Acute) Bacteremia (Acute) Sepsis (Acute) Cough (Acute) UTI (urinary tract infection) (Acute) Contusion of knee, left (Acute) Vertigo (Acute) Nausea & vomiting (Acute) Acute infectious diarrhea (Acute) Plan of Treatment: Continue with present treatment and follow up plan. Pt is to keep follow up appointment as instructed and take medications as ordered. Discharge Medications Discharge Medications: cefaclor [From Ceclor] Allergy (Verified 10/17/17 21:26) cyclobenzaprine [From Flexeril] Allergy (Verified 10/17/17 21:26) nabumetone [From Relafen] Allergy (Verified 10/17/17 21:26) sucralfate [From Carafate] Allergy (Verified 10/17/17 21:26) New Prescriptions ciprofloxacin HCl 500 mg PO BID 7 Days #14 tab 09/09/20 [Rx] Follow up and Referral Follow Up: 1 Week Discharge Disposition Assessment: Stable no acute distress noted at time of discharge. Discharge Disposition: Home Discharge Condition: Stable Discharge Plan Discharge Plan Hospital Course: Pt is a 49 year old female past medical history of hypertension admitted for Sepsis, E coli Bacteremia, Campylobacter diarrhea. Hospital/treatment course included:IVF, Antibiotics: IV Ciprofloxacin + Zosyn, IV morphine prn for pain, Zofran prn. Labs/imaging: Wbc 12.1, Hgb 8.1, Plt 215, Na 143, K 3.3, Creatinine 0.94, Glucose 93, Urine culture NGTD, Blood culture E coli pansensitive, Repeat blood cultures NGTD. Stool cultures positive Campylobacter, Ova and parasites negative. Pt did develop atelectasis in lungs during hospital course and had bronchodilators ordered and Incentive spirometry. On discharge pt was having normal bowel movements again. Rx ciprofloxacin to complete 14 day course. Ambulatory O2 sat to be determined this morning and if required home O2 will be arranged. Outpatient sleep study ordered to evaluate WENCESLAO. Pt discharged in stable condition, instructed to follow up with pcp in 3-5 days. Patient Disposition: 01 HOME, SELF-CARE Condition: Stable Health Concerns: Post Hospitalization: new medications and changes needed to prevent readmission or further decline. Pt educated and given instructions on all concerns. Care Plan Goals: Problem: Infection Goal: Temperature within normal limits. Resolved infection. Instructions: Follow provided instructions. Follow up with primary physician as directed. Contact primary care physician or report to the closest Emergency Room if condition worsens. Plan of Treatment: Continue with present treatment and follow up plan. Pt is to keep follow up appointment as instructed and take medications as ordered. Assessment: Stable no acute distress noted at time of discharge. Prescriptions: New ciprofloxacin HCl 500 mg tablet 500 mg PO BID 7 Days Qty: 14 RF: 0 Continued torsemide [Demadex] 10 MG tablet 5 - 10 mg PO DAILY RF: 0 Lisinopril 40 MG Tab 40 mg PO DAILY RF: 0 atorvastatin 10 mg Tablet 10 mg PO DAILY RF: 0 amlodipine 5 mg Tablet 5 - 10 mg PO QDAY RF: 0 Propanolol 120 mg PO DAILY RF: 0 Follow ups/Referrals Follow ups/Referrals: [facility] [Other] - 09/09/20 9:00 am (Staff will call you to set up appointment.) Yobany Corea [STAFF PHYSICIAN] - 09/16/20 9:00 am Instructions Instructions: Campylobacter Gastroenteritis, Incentive Spirometer, Hand Washing, [id number], Antibiotic Medicine, Adult, Sepsis, Adult, Sleep Apnea, [id number], Hypertension, [id number], Screening for Sleep Apnea, You've Been Prescribed an Antibiotic in the Hospital for an Infection - CDC (05/2017), Bacteremia Stand Alone Forms: Excuse From Work or School, Precautions for COVID19, Patient Portal, Social Distancing
[2020-09-09] MEDS: CIPRO IV 400 MG PREMIX* 400 MG/200 ML IV.SOLN. IV SCH (09:08)
[2020-09-09] MEDS: COLACE CAP 100 MG PO SCH (09:08)
[2020-09-09] MEDS: LIPITOR TAB 10 MG PO SCH (09:09)
[2020-09-09] MEDS: LOVENOX INJ 40 MG SYR SC SCH (09:09)
[2020-09-09] MEDS: NORVASC TAB 5 MG PO SCH (09:10)
[2020-09-09] MEDS: PROTONIX TAB 40 MG PO SCH (09:10)
[2020-09-09] MEDS: ZITHROMAX INJ 500 MG VIAL 250 MG in NS 250 ML IV 250 ML IV SCH (09:10)
[2020-09-09] MEDS: ZESTRIL TAB 40 MG PO SCH (09:10)
[2020-09-09] MEDS: PATIENT'S HOME MEDICATION PO SCH (09:23)
[2020-09-09] MEDS: K-DUR TAB 20 MEQ PO PRN (09:24)
--- OUTSIDE RECORDS SUMMARY | 2020-09-09 10:35 | XMS | Continuity of Care Document ---
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 Status: Active Adenomatous polyp of transverse colon (D12.3, 211.3) Status: Active Altered bowel habits (R19.4, 787.99) Com ments: Her CEA was elevated at 3.7 and she is not a smoker. Her last colonsocopy was several years ago. We will request a referral appt with DR Tony and will forward stool results as soon as available.On questioning pt admit s she has been having more loose stools and stool urgency and has been for approx 6 to 8 months. She denies any obvious blood in the stools and says the stools are not black or tarry. Status: Active Atypical squamous cells of undetermined significance on cytologic smear of cervix (ASC-US) (R87.610, 795.01) Comments: We will tr eat the BV and have patient return in 3 months for repeat pap. We reviewed her results and treatment by phone today.Pap results ASCUS and destiny changes consistent with BV Status: Active Bacterial vaginitis (N76.0, 616.10) Comm ents: Pt recently had a PAP for annual eval and it is remarkable for a shift consistent with BV and a Rx is sent to her pharmacy.PL Status: Active Benign colon polyp (K63.5, 211.3) Status : Active Breast lump on right side at 7 o'clock position (N63.13, 611 .72) Status: Active BV (bacterial vaginosis) (N76.0, 616.10) Status: Active Elevated CEA (R97.0, 795.81) Comments: Aly peraza requested with Dr Tony.Please see last office notes and labs recorded in document. Status: Active Encounter for preventive care (Z00.00, V70.0) Status: Active Encounter for screening breast examination (Z12.39, V76.10) Comments: Schedule diagnostic MMGPalpable nodular density @ 11:00 on right breast in right lateral upper outer quadrant and a palpable nodule @ 6:00 on left breast at edge of areola. Reports two weeks ago had a t yaa swelling in th e left axilla that has gone down and is no longer palpable. Status: Active Encounter for screening for malignant neoplasm of cervix (Z1 2.4, V76.2) Status: Active Family history of breast cancer in female (Z80.3, V16.3) Status: Active Hemorrhoids (Renamed from Hemorrhoid) (K64.9, 455.6) Status: Active History of hematuria (Z87.448, V13.09) C omments: Noted on U/A done in ER 04-03-2018 Status: Active Hot flashes (R23.2, 782.62) Status: Acti ve Hot flushes, perimenopausal (N95.1, 627.2) Status: Active HTN (hypertension), benign (I10, 401.1) Status: Active Irregular bowel habits (R19.8, 569.89) S tatus: Active Joint symptoms (R29.91, 719.60) Comments : Pt with nonspecific pain in multiple joints wrists with CTS, both Knees but worse in left and at left ankle. We will try a prednisone taper and request labs for rheumatoid workup Status: Active Midline low back pain without sciatica, unspecified chronici ty (M54.5, 724.2) Status: Active Multiple thyroid nodules (E04.2, 241.1) Comments: Repeat sonagram for changes in size and character.Thyroid sonagram in May 2015 showed thyroid nodules less than a cm in size on right and left sides. Status: Active Other hyperlipidemia (E78.49, 272.4) Sta tus: Active Other obesity (E66.8, 278.00) Status: Ac tive Palpitations (Renamed from Awareness of heartbeats) (R00.2, 785.1) Status: Active Perimenopausal atrophic vaginitis (N95.2, 627.3) Status: Active Peripheral edema (Renamed from Edema, peripheral) (R60.9, 78 2.3) Comments: edema has resolved, she will cont with current therapy and meds and will decrease her Torsemide to 1/4 to 1/2 tab and will call for refill and we can decrease her dose to 5 mg if swelling conts controll ed. 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 Rx for apparatus is given to Aylin and he is introduced to Pt.Reviewed with pt and she is agreeable to have [facility] arrange for her device and set-up. Status: Active Sore throat (J02.9, 462) Comments: She s till feels bad and has a sore throat but no fever. Likely an allergic sinusitis and we will give her Zyrtec samples for daily use #10 and see her back in 2 weeks or sooner if sx's worsen or change .Pt was seen in ER for N/V/ dizziness and had labs,U/A, and head CT scan. She was treated for dehydration with IV rehydreation and Head CT scan showed no sinus infection or acute intracranial process. Hematuria was seen on U/A. CBC with normal WBC & RBC and Hgb @13.5. CMP Ess WNL's with Glob@4.6 and A/G ratio of 0.8. Status: Active Stress (F43.9, V62.89) Comments: Start m edication as directed. Follow up on one month. Status: Active Thyromegaly (E01.0, 240.9) Status: Activ e Medications Name Dates Details amLODIPine Besylate 5 MG Oral Tablet 1 (one) Tablet one to two po once a da y for blood pressure. for 30 days Quantity: 60 {Tablet} Refills: 2 Ordered:27-Jan-2020 Sera López NP Start : 27-Jan-2020 Active Comments:pt to monitor b/p and will titrate if b/p continues elevated over 140/90 more than 3 (three) times. Atorvastatin Calcium 10 MG Oral Tablet 1 (one) Tablet one po once a day for 0 days Quantity: 30 {Tablet} Refills: 2 Ordered:16-Aug-2020 Sera López NP Start : 16-Aug-2020 Active Comments:for elevated cholesterol Lisinopril 40 MG Oral Tablet 1 Tablet daily for b/p and renal protection for 30 days Quantity: 30 {Tablet} Refills: 2 Ordered:21-Jun-2020 Sera López NP Start : 21-Jun-2020 Active Omeprazole 40 MG Oral Capsule Delayed Release 1 (one) Capsule DR one po once a day for 0 days Quantity: 30 {Capsule} Refills: 1 Ordered:18-Feb-2019 Sera López NP Start : 18-Feb-2019 Active Propranolol HCl ER 120 MG Oral Capsule Extended Release 24 Hour 1 Tablet Take one tab daily for heart and rhythm for 30 days Quantity: 30 {Tablet} Refills: 2 Ordered:26-Jul-2020 Sera López NP Start : 26-Jul-2020 Active Comments:Monitor b/p and heart rate periodically<<<NOTE>>> disregard Rx sent initially today and note refill increase on all Rx's Torsemide 10 MG Oral Tablet 1/2-1 Tablet daily as directed for b/p and swelling for 0 days Quantity: 30 {Tablet} Refills: 3 Ordered:25-May-2020 Sera López NP Start : 25-May-2020 Active Comments:Pt will weigh dailyand adjust as directed. Rocephin 1 GM Injection Solution Reconstituted 1 (one) gram Ordered:01-Jul-2015 Sarah Dolan Start : 06-Jul-2015 End : 06-Jul-2015 Administered Comments:Site: Buttocks, (L) Rocephin 1 GM Injection Solution Reconstituted Ordered:19-Dec-2012 Sarah Dolan Start : 19-Dec-2012 End : 19-Dec-2012 Administered Comments:Site: Buttocks, (R) Amlodipine-Atorvastatin 10-10 MG Oral Tablet One tab Take one tab daily at Hs for b/p and cholesterol (10-10 MG) Inactive amLODIPine-Atorvastatin 10-10 MG Oral Tablet 1 (one) Tablet Tablet Take one tab at HS for b/p and cholesterol for 30 days Quantity: 30 {Tablet} Refills: 5 Ordered:03-Feb-2019 Karli Jaeger Start : 28-Jan-2018 End : 03-Feb-2019 Inactive ASPIRIN, 81MG (Oral Tablet) 1 daily (81 MG) Inactive BACTRIM DS, 800-160MG (Oral Tablet) 1 (one) Tablet one po bid for 0 days Quantity: 14 {Tablet} Refills: 0 Ordered:01-Jun-2015 Sarah Dolan Start : 10-May-2015 End : 01-Jun-2015 Inactive Citalopram Hydrobromide 20 MG Oral Tablet 1 (one) Tablet Tablet 1/2 tablet once a day for 7 days, then one pill once a day for 0 days Quantity: 30 {Tablet} Refills: 1 Ordered:30-Aug-2017 Karli Jaeger Start : 12-Nov-2014 End : 30-Aug-2017 Inactive Clotrimazole-Betamethasone 1-0.05 % External Lotion 1 Lotion Lotion two times daily for 0 days Quantity: 60 {Milliliter} Refills: 1 Ordered:30-Jan-2017 Sera López NP Start : 12-Nov-2014 End : 30-Jan-2017 Inactive Comments:to rash as dir Eucrisa 2 % External Ointment 1 (one) Application as directed for 30 days Refills: 0 Ordered:01-Oct-2018 Karli Jaeger Start : 01-Oct-2018 End : 31-Oct-2018 Inactive Famotidine 40 MG Oral Tablet 1 (one) Tablet Tablet at bedtime for heartburn and stomach for 30 days Quantity: 30 {Tablet} Refills: 1 Ordered:30-Aug-2017 Karli Jaeger Start : 04-Jan-2015 End : 30-Aug-2017 Inactive Flonase Allergy Relief 50 MCG/ACT Nasal Suspension 1 (one) Suspension Suspension 2 sprays each nostril once aday for 0 days Quantity: 1 {Each} Refills: 1 Ordered:30-Aug-2017 Karli Jaeger Start : 01-Jul-2015 End : 30-Aug-2017 Inactive LamISIL AT External Powder 1 (one) Powder Powder two times daily for 30 days Quantity: 60 {Canister} Refills: 2 Ordered:30-Jan-2017 Sera López NP Start : 16-May-2016 End : 30-Jan-2017 Inactive Comments:for tinea LamISIL AT Jock Itch 1 % External Cream 1 (one) Application Application two times daily for 14 days Quantity: 60 {Applicator} Refills: 1 Ordered:30-Jan-2017 Sera López NP Start : 16-May-2016 End : 30-Jan-2017 Inactive Comments:as dir LISINOPRIL, 20MG (Oral Tablet) 1 Tablet daily for 15 days Quantity: 15 {Tablet} Refills: 0 Ordered:02-Feb-2014 Sarah Dolan Start : 02-Feb-2014 End : 17-Feb-2014 Inactive Comments:for b/pNeeds to follow up before we can refill anymore LISINOPRIL-HYDROCHLOROTHIAZIDE, 20-25MG (Oral Tablet) 1 daily (20-25 MG) Inactive LISINOPRIL-HYDROCHLOROTHIAZIDE, 20-25MG (Oral Tablet) 1 Tablet daily for 90 days Quantity: 90 {Tablet} Refills: 1 Ordered:06-Dec-2012 Karli Jaeger Start : 24-Aug-2011 End : 06-Dec-2012 Inactive Metrogel 1 % External Gel 1 (one) Application DAILY for 5 days Quantity: 5 {Applicator} Refills: 0 Ordered:28-Feb-2016 Sera López NP Start : 28-Feb-2016 End : 04-Mar-2016 Inactive Comments:Please provide applicator METROGEL-VAGINAL, 0.75% (Vaginal Gel) 1 Gel as directed for 0 days Quantity: 10 {Gel} Refills: 0 Ordered:02-May-2012 Karli Jaeger Start : 16-Feb-2012 End : 02-May-2012 Inactive Comments:one applicator vag BID metroNIDAZOLE 500 MG Oral Tablet 1 (one) Tablet three times daily x 10 days for 10 days Quantity: 30 {QS} Refills: 0 Ordered:01-Jun-2020 Sera López NP Start : 01-Jun-2020 End : 11-Jun-2020 Inactive metroNIDAZOLE 500 MG Oral Tablet 1 (one) Tablet TID with meals for 7 days for 7 days Quantity: 42 {Tablet} Refills: 0 Ordered:28-Apr-2019 Sera López NP Start : 28-Apr-2019 End : 05-May-2019 Inactive Comments:call pt when Rx is ready and caution against drinking any alcohol while using this medication, also let her know the Rx is for her and her partner. If questions have her call our office. MULTIPLE VITAMINS-IRON, 15MG (Oral Tablet Chewable) 1 daily (15 MG) Inactive NASONEX, 50MCG/ACT (Nasal Suspension) 1 (one) Suspension 1-2 sprays each nostril 1-2 times a day for 0 days Quantity: 1 {Canister} Refills: 0 Ordered:12-Nov-2014 Karli Jaeger Start : 02-Apr-2014 End : 12-Nov-2014 Inactive SIMVASTATIN, 20MG (Oral Tablet) 1 Tablet at bedtime for 0 days Quantity: 30 {Tablet} Refills: 2 Ordered:04-Jan-2015 Karli Jaeger Start : 28-Aug-2012 End : 04-Jan-2015 Inactive TORSEMIDE, 10MG (Oral Tablet) 1/2 (one half) to 1 Tablet daily for 15 days Quantity: 15 {Tablet} Refills: 0 Ordered:02-Feb-2014 Sarah Dolan Start : 02-Feb-2014 End : 17-Feb-2014 Inactive Comments:for swelling and b/p as dirneeds to follow up Zithromax Z-Hernandez 250 MG Oral Tablet 1 (one) Tablet Tablet as directed for 0 days Quantity: 1 {Package} Refills: 0 Ordered:30-Jan-2017 Sera López NP Start : 01-Jul-2015 End : 30-Jan-2017 Inactive ZyrTEC Allergy 10 MG Oral Tablet 1 Tablet Tablet daily for 0 days Quantity: 10 {Tablet} Refills: 0 Ordered:03-Feb-2019 Karli Jaeger Start : 08-Apr-2018 End : 03-Feb-2019 Inactive Comments:as dir for runny nose, samples to pt # 10 Cortisporin-TC 3.3-3-10-0.5 MG/ML Otic Suspension 1 (one) Suspension Suspension 4 gtts four times a day for 0 days Quantity: 1 {Each} Refills: 0 Ordered:01-Jul-2015 Karli Jaeger Start : 01-Jul-2015 End : 30-Aug-2017 Discontinued Comments:This order discontinued per [facility]. Allergies and Adverse Reactions Name Dates Details Carafate *ULCER DRUGS* (Allergy) Status: Active Flexeril *MUSCULOSKELETAL THERAPY AGENTS* (Allergy) Status: Active Relafen *ANALGESICS - ANTI-INFLAMMATORY* (Allergy) Status: Active Past Medical History Name Dates Details Abdominal pain (R10.9, 789.00) Comments: Pt will be referred to Gastorenterologist for evaluation after tests are completed Status: Inactive as of 16-May-2016 Abdominal pain (R10.9, 789.00) Comments: Will order CT of abdomenPt states that she had gallbladder out a long time ago. but is having episodic pain in right upper and epigastric area. Status: Inactive as of 16-May-2016 Allergic sinusitis (J30.9, 477.9) Commen ts: Add Zyrtec 10 mg tab daily as dir with # 10 samples shared with pt with inst for use.See ER records with neg CT scan of head. Status: Resolved as of 08-Apr-2019 Anemia Status: Inactive as of 28-Jan-2018 Anginal chest pain at rest (413.0) Statu s: Inactive as of 16-May-2016 Asthma Status: Inactive as of 28-Jan-2018 Blood in urine (R31.9, 599.70) Comments: Pt is inst to push clear liquids. Due to protein in urine, pt is inst to return for repeat UA at the conclusion of treatment Status: Inactive as of 16-May-2016 Breast lump in female (N63.0, 611.72) Co mments: PALPABLE BREAST LUMP @ 11 O'CLOCK OF RIGHT BREAST AND 6 O'CLOCK LEFT BREAST Status: Resolved as of 28-Jan-2018 Candidal vaginitis (B37.3, 112.1) Commen ts: pt did not get rx filled when called in due to cost, she has given her ins card to pharmacy and the cost is 15$ instead of over 100$ AND SHE WILL START IT TODAY Status: Resolved as of 28-Jan-2018 Dyslipidemia (E78.5, 272.4) Status: Inac tive as of 31-Jan-2017 Enlarged thyroid (E04.9, 240.9) Comments : Schedule repeat thyroid sonagramWe will get Pt precerted for follow up sonagram Status: Inactive as of 31-Jan-2017 Fever and chills (R50.9, 780.60) Status: Inactive as of 16-May-2016 Headache (Renamed from Cephalalgia) (R51.9, 784.0) Comments: instructed to keep a headache diary, record auras, triggers, dietary intake, duration, what helps, what doesn't, and associated symptoms. If worsens RTO or go to the ER. If nec and symptoms change may n eed neuro consult, p t to call if any worsening of symptoms Status: Inactive as of 16-May-2016 Health maintenance examination (Z00.00, V70.9) Status: Inactive as of 16-May-2016 High blood pressure Status: Inactive as of 28-Jan-2018 HTN (hypertension) (I10, 401.9) Comments : Stable, continue with present treatment. Reviewed labs from [facility] by [facility] for hypertension and hyperlipidemia Status: Inactive as of 16-May-2016 Hypercholesterolemia Status: Inactive as of 08-Apr-2018 Hypercholesterolemia Status: Resolved as of 28-Jan-2018 Low back pain (M54.5, 724.2) Comments: W ill seek approval for MRI.pt is complaining of pain with any time of exercise, she develops muscle spasms and pain radiating down legs. She has had no improvement with NSAIDs and topical tr eatments. Symptoms are worsening over time. Status: Resolved as of 28-Jan-2018 Medication refill (Z76.0, V68.1) Status: Inactive as of 30-Jan-2017 Menses, irregular (N92.6, 626.4) Comment s: Will do labs and CT. Further treatment as indicated.Pap is current at [facility], pt will get copy for our chart. Status: Inactive as of 16-May-2016 Migraine Headache Status: Inactive as of 28-Jan-2018 Obesity (BMI 30-39.9) (E66.9, 278.00) St atus: Inactive as of 07-Sep-2017 Pain, flank, bilateral (R10.9, 789.09) C omments: We will recheck her urine but now she says she has started her monthly cycle. She is afebrile and we will re- check urine in two weeks.Pt was recently seen in ER for N/V and dizziness. She had a negativ e CT scan but her ur ine was positive for blood but no indication of need for C&S. She was treated for dehydration associated with vomiting and recieved IV fluids. Status: Resolved as of 08-Apr-2019 Pap smear, as part of routine gynecological examination (Z01 .419, V76.2) Comments: Pt to call for results if we haven't called her in 2 weeks Status: Resolved as of 28-Jan-2018 Rectal bleeding (K62.5, 569.3) Comments: reports some recent problems with hard constipated stools with noted blood on the stool when finally passed Status: Inactive as of 16-May-2016 Right upper quadrant pain (R10.11, 789.01) Comments: Pt with pain and tenderness in right upper quadrant, with heartburn and indigestion, she denies B-B-T stools and has no N/V. Status: Inactive as of 16-May-2016 Sinusitis (J32.9, 473.9) Comments: Incre ase clear liquids. OTC Robitussin Status: Inactive as of 16-May-2016 Sinusitis, acute (J01.90, 461.9) Comment s: Rocephin 1gm Im, OTC mucinex, push clear liquids, tylenol for fever or headache. Nasal spray as RX'd. Follow up if no improvement for 48 hours, sooner if s/s worsenfever right frontal and ma xillary pain and pressure. Status: Inactive as of 16-May-2016 Skin tag, acquired (L91.8, 701.9) Commen ts: Skin tag removed after cleaning with Povidine prep, alcohol and enesthesized with Ethyl chloride the skin tag was snipped quickly with sharp sterile # 11 knife blade followed with applicatio n of pressur e and topical Neospo rin oint and sterile medipore dressing.Pt instructed to apply ice pack and pressure if bleeding occurs. To RTO or got to ER if any problems, bleeding, or signs of infection.On left s milka of neck and gets irritated at times/ Pt requests we remove it. Status: Resolved as of 08-Apr-2019 Tinea corporis (B35.4, 110.5) Status: In active as of 30-Jan-2017 Tinea versicolor (B36.0, 111.0) Status: Inactive as of 16-May-2016 Tongue discoloration (K14.8, 529.8) Comm ents: Pt with black color lesion to tip of tongue, she state that it has been there for a long time, but seem to be getting darker. We will refer to ENT for evaluation. Status: Inactive as of 28-Jan-2018 URI, acute (J06.9, 465.9) Status: Inacti ve as of 16-May-2016 Procedures Procedure Dates Details Follow up in 3 months/ August Date: 01-Jun-2020 for repeat PAP August 2020 VENIPUNCTURE FOR BLOOD TEST ([id number]) Date: 21-May-2020 Comp leted 21-May-2020 Follow up -Call or Make appt after Date: 21-May-2020 diagnostic tests to review results. Sexually Transmitted Diseases: safe Date: 21-May-2020 sex Low Back Pain Exercises *: back Date: 21-May-2020 exercises Breast Self-Exam *: breast Date: 21-May-2020 DIGITAL SCREENING MAMMOGRAPHY OF Date: 04-Dec-2019 Complet ed 02-Jan-2020 BOTH BREASTS ([id number]) Bacterial Vaginosis *: nonspecific Date: 28-Apr-2019 vaginitis Follow up in 1 year for annual PAP Date: 08-Apr-2019 or sooner if indicated Follow up if no improvement or if Date: 08-Apr-2019 symptoms worsen. Patient instructed to go to the ER or RTO ZOLTAN. Follow up -Call or Make appt after Date: 08-Apr-2019 diagnostic tests to review results. ULTRASOUND OF BREAST FOLLOWING Date: 08-Apr-2019 Comments: Breast sonogram If indicated MAMMOGRAPHY (61397) DIAGNOSTIC BILATERAL MAMMOGRAM Date: 08-Apr-2019 Comments: Palpable 3 cm breast lump at 7:00 in right breast with and adjacent lump also palpable at approx 8:00 that is about 1.5 cm in size. ([id number]) Atrophic Vaginitis: gynecological Date: 08-Apr-2019 health Mammogram *: imaging Date: 08-Apr-2019 Breast Cancer in Women *: breast Date: 08-Apr-2019 lumps Breast Self-Exam *: gynecological Date: 08-Apr-2019 health Health Maintenance: Controlling Date: 08-Apr-2019 Cholesterol: cardiovascular health Routine Health Care for Women *: Date: 08-Apr-2019 health maintenance Follow up in 2 months for PAP&MMG/ Date: 03-Feb-2019 & rheumatoid labs if not already done by the PA/ copy of labs we need printed Follow up -Call or Make appt after Date: 03-Feb-2019 diagnostic tests to review results. DISCONTINUED - URINALYSIS, Date: 03-Feb-2019 Completed Jan-2019 AUTOMATED, W/O MICRO (89175) Psoriasis *: rash Date: 03-Feb-2019 Follow up after consult with Date: 22-Apr-2018 urologist of pt choice Follow up as needed Date: 22-Apr-2018 Follow up in 1 month Date: 22-Apr-2018 SKIN TAG REMOVAL ([id number]) Date: 22-Apr-2018 Comments: left side of neck. see above note. Follow up if no improvement or if Date: 08-Apr-2018 symptoms worsen Follow up in 2 weeks Date: 08-Apr-2018 Completed 08-Apr-19 19 Sinusitis *: allergies Date: 08-Apr-2018 Follow up after consult with Dr Lee Date: 21-Feb-2018 Karl Follow up -Call or Make appt after Date: 21-Feb-2018 diagnostic tests to review results. Colonoscopy *: digestive system Date: 21-Feb-2018 Cancer Screening: colonoscopy Date: 21-Feb-2018 Follow up in 6 months or sooner if Date: 28-Jan-2018 needed. Follow up -Call or Make appt after Date: 28-Jan-2018 diagnostic tests to review results. Follow up if no improvement or if Date: 28-Jan-2018 symptoms worsen Follow up in 6 months or if sx's Date: 28-Jan-2018 change and as needed for episodic care. DIGITAL SCREENING MAMMOGRAPHY OF Date: 28-Jan-2018 BOTH BREASTS (23109) CAPILLARY BLOOD DRAW (72050) Date: 31-Aug-2017 Follow up if no improvement or if Date: 30-Aug-2017 symptoms worsen Follow up in 3 months or sooner if Date: 30-Aug-2017 needed Mediterranean Diet Date: 30-Aug-2017 Completed 8 Metabolic Syndrome: insulin Date: 30-Aug-2017 resistance BILATERAL DIAGNOSTIC DIGITAL Date: 01-Feb-2017 MAMMOGRAPHY ([id number]) Follow up -Call or Make appt after Date: 30-Jan-2017 diagnostic tests to review results. Follow up if no improvement or if Date: 30-Jan-2017 symptoms worsen BILATERAL DIAGNOSTIC DIGITAL Date: 30-Jan-2017 MAMMOGRAPHY ([id number]) DIAG DIGITAL MAMMOGRAM BILAT Date: 30-Jan-2017 (G0204) Pap (Q0091) Date: 30-Jan-2017 PRESCRIPTION DRUG, ORAL, NON Date: 30-Jan-2017 Comments: P t is given Nifedipine 10 mg tab orally @ 10:55AM. CHEMOTHERAPEUTIC, NOS (J8499) Must specify medication! ADMINISTRATION OF ORAL MEDICATION Date: 30-Jan-2017 IN OFFICE (T1502) US EXAM OF THYROID/ NECK (43195) Date: 16-May-2016 Follow up in 3 months or sooner if Date: 16-May-2016 needed Pap (Q0091) Date: 16-May-2016 Comments: Pt denies having surgery; She denies being , having , an IUD, hormone therapy, and postmenopausal. Pt denies having chemotherapy, ROBB Exposure, and Radiation. US BREAST BILATERAL ([id number]) Date: 06-Apr-2016 MAMMOGRAM BREAST BILATERAL Date: 09-Feb-2016 DIAGNOSTIC ([id number]) Follow up as needed Date: 07-Feb-2016 Follow up - Make appt after Date: 07-Feb-2016 diagnostic tests Follow up - To make appt after appt Date: 07-Feb-2016 w/ specialist Menopause *: change of life Date: 07-Feb-2016 MAMMOGRAM BREAST BILATERAL Date: 07-Feb-2016 Comments: Pt has a 2 cm cystic area at 6:00 in right breast and a 2 cm cystic area at 1:00 in the left breast. DIAGNOSTIC (73583) US EXAM OF THYROID/ NECK (70748) Date: 07-Feb-2016 Pap (Q0091) Date: 07-Feb-2016 Comments: She had he r LMP Jan 062015. Pt denies being , she doesn't use any type of control, or she hasn't take Chemo or radiation. Pt has never had an abnormal pap smear. ROCEPHIN 250 MG (J0696) Date: 01-Jul-2015 Completed MRI LUMBAR SPINE W/O CONTRAST Date: 01-Jun-2015 (78045) MAMMOGRAM SCREENING (98035) Date: 12-May-2015 US THYROID ([id number]) Date: 12-May-2015 Follow up after consult with Dr Date: 04-Jan-2015 Irfan Follow up if no improvement or if Date: 04-Jan-2015 symptoms worsen Pap (Q0091) Date: 04-Jan-2015 MAMMOGRAM SCREENING (09901) Date: 02-Apr-2014 XR LUMBAR SPINE 3V (62528) Date: 02-Apr-2014 CT OF ABDOMEN AND PELVIS WITH Date: 02-Apr-2014 CONTRAST (35650) ROCEPHIN 250 MG (J0696) Date: 19-Dec-2012 Completed Comments: Acute sinu sitits with fever 1 gm Rocephin IM MAMMOGRAM SCREENING (51139) Date: 06-Dec-2012 Comments: Pt is scheduled on 12/11/12 @ 2:00 Pap (Q0091) Date: 06-Dec-2012 Follow up in 3 months or sooner if Date: 05-Sep-2012 needed Follow up - Call for test results Date: 28-Aug-2012 after diagnostic tests Follow up in 1 month Date: 28-Aug-2012 EKG (25235) Date: 28-Aug-2012 Follow up if no improvement or if Date: 02-May-2012 symptoms worsen Follow up - 1 wk - scheduled Date: 02-May-2012 Follow up if no improvement or if Date: 16-Feb-2012 symptoms worsen Follow up in 1 month Date: 16-Feb-2012 Follow up as needed Date: 10-Jan-2012 Follow up if no improvement or if Date: 10-Jan-2012 symptoms worsen MAMMOGRAM SCREENING (68636) Date: 10-Jan-2012 Comments: at [facility] 2011 @ 10:00 am TU Cervical Spine X-ray Completed Comments: Unremarkab le exam of the c spine Delivery Completed Comments: 3 or more times Section - 3 or more Completed foot surgery Completed Comments: left Foot Surgery - Left Completed Gallbladder Surgery Completed Comments: laporoscop ic Gallbladder Surgery - Laparoscopic Compl eted Thoracic Spine X-ray Completed Comments: Negative t horacic spine exam Tubal Ligation Completed Family History Name Dates Details Asthma Comments: Son. Status: Active Diabetes Mellitus Comments: Father. Status: Active Heart Disease Comments: Father. Br other. Status: Active Heart disease in male family member before age 55 Status: Active Hypercholesterolemia Comments: Father. Status: Active Hypertension Comments: Father. Mo ther. Status: Active Kidney disease Comments: Father. Status: Active Thyroid problems Status: Active Social History Name Dates Details Alcohol use: Occasional alcohol use. Drinks wine. Comments: 01/10/2012: Never drinks. Status: Active Caffeine use: Coffee. Tea. Carbonated beverages. 3 servings/ day. Comments: 01/10/2012: Drinks coffee, tea and soft drinks 1-2 times a day. Status: Active Exercise: Inactive. Comments: 01/10/2012 : exercise activities 0+ times a week. Status: Active HIV risk factors Comments: 01/10/2012 : no Status: Active Illicit drug use Comments: 01/10/2012 : none Status: Active No drug use Status: Active Seat Belt Use: Always uses seat belts. C omments: 01/10/2012: always Status: Active Sun Exposure Comments: 01/10/2012 : occasionally Status: Active Tobacco / smoke exposure: None. Comments : 01/10/2012: No Status: Active Tobacco use: Never smoker. Comments: : Never smoker: smokes 0 cigar(s) per week, uses 0 can(s) of smokeless tobacco per week. Status: Active Vital Signs Date Test Result Details :47 Body temperature 98.3 f Heart Rate 75 /min Comments: Pattern: R egular Respiratory rate 18 /min Comments: Pattern: U nlabored O2 SAT 99 % Comments: Room air Systolic blood pressure 150 mm[Hg] Comments: Patricia t Position: Sitting; Cuff Location: Left Arm; Cuff Size: Standard Diastolic blood pressure 95 mm[Hg] Comments: Miguel A nt Position: Sitting; Cuff Location: Left Arm; Cuff Size: Standard Weight 272 lb Body height 65 in Body mass index (BMI) [Ratio] 45.26 kg/m2 Body surface area Derived from formula 2.25 m2 :33 Body temperature 98.2 f Heart Rate 64 /min Comments: Pattern: R egular Respiratory rate 18 /min Comments: Pattern: U nlabored O2 SAT 98 % Comments: Room air Systolic blood pressure 144 mm[Hg] Comments: Patien t Position: Sitting; Cuff Location: Left Arm; Cuff Size: Standard Diastolic blood pressure 95 mm[Hg] Comments: Patie nt Position: Sitting; Cuff Location: Left Arm; Cuff Size: Standard Weight 265 lb Body height 65 in Body mass index (BMI) [Ratio] 44.10 kg/m2 Body surface area Derived from formula 2.23 m2 :27 Body temperature 97.5 f Heart Rate 68 /min Comments: Pattern: R egular Respiratory rate 18 /min Comments: Pattern: U nlabored O2 SAT 98 % Comments: Room air Systolic blood pressure 129 mm[Hg] Comments: Patien t Position: Sitting; Cuff Location: Left Arm; Cuff Size: Standard Diastolic blood pressure 80 mm[Hg] Comments: Patie nt Position: Sitting; Cuff Location: Left Arm; Cuff Size: Standard Weight 265 lb Body height 65 in Body mass index (BMI) [Ratio] 44.10 kg/m2 Body surface area Derived from formula 2.23 m2 :26 Body temperature 97 f Heart Rate 58 /min Comments: Pattern: R egular Respiratory rate 18 /min Comments: Pattern: U nlabored O2 SAT 97 % Comments: Room air Systolic blood pressure 151 mm[Hg] Comments: Patien t Position: Sitting; Cuff Location: Left Arm; Cuff Size: Standard Diastolic blood pressure 94 mm[Hg] Comments: Patie nt Position: Sitting; Cuff Location: Left Arm; Cuff Size: Standard Weight 266 lb Body height 65 in Body mass index (BMI) [Ratio] 44.26 kg/m2 Body surface area Derived from formula 2.23 m2 :06 Body temperature 97.9 f Heart Rate 75 /min Comments: Pattern: R egular Respiratory rate 18 /min Comments: Pattern: U nlabored O2 SAT 98 % Comments: Room air Systolic blood pressure 139 mm[Hg] Comments: Patien t Position: Sitting; Cuff Location: Left Arm; Cuff Size: Standard Diastolic blood pressure 99 mm[Hg] Comments: Patie nt Position: Sitting; Cuff Location: Left Arm; Cuff Size: Standard Weight 262 lb Body height 65 in Body mass index (BMI) [Ratio] 43.60 kg/m2 Body surface area Derived from formula 2.22 m2 :17 Body temperature 98.1 f Comments: Metho d: Oral Heart Rate 68 /min Comments: Pattern: R egular Respiratory rate 16 /min Comments: Pattern: U nlabored O2 SAT 95 % Comments: Room air Systolic blood pressure 141 mm[Hg] Comments: Patien t Position: Sitting; Cuff Location: Left Arm; Cuff Size: Standard Diastolic blood pressure 91 mm[Hg] Comments: Patie nt Position: Sitting; Cuff Location: Left Arm; Cuff Size: Standard Weight 260 lb Body height 65 in Body mass index (BMI) [Ratio] 43.27 kg/m2 Body surface area Derived from formula 2.21 m2 :37 Body temperature 98.7 f Comments: Meth od: Oral Heart Rate 64 /min Comments: Pattern: R egular Respiratory rate 18 /min Comments: Pattern: U nlabored O2 SAT 96 % Comments: Room air Systolic blood pressure 128 mm[Hg] Comments: Patien t Position: Sitting; Cuff Location: Left Arm; Cuff Size: Standard Diastolic blood pressure 84 mm[Hg] Comments: Patie nt Position: Sitting; Cuff Location: Left Arm; Cuff Size: Standard Weight 260 lb Body height 65 in Body mass index (BMI) [Ratio] 43.27 kg/m2 Body surface area Derived from formula 2.21 m2 :12 Body temperature 98.1 f Heart Rate 72 /min Comments: Pattern: R egular Respiratory rate 18 /min Comments: Pattern: U nlabored O2 SAT 98 % Comments: Room air Systolic blood pressure 126 mm[Hg] Comments: Patien t Position: Sitting; Cuff Location: Left Arm; Cuff Size: Standard Diastolic blood pressure 85 mm[Hg] Comments: Patie nt Position: Sitting; Cuff Location: Left Arm; Cuff Size: Standard Weight 260 lb Body height 65 in Body mass index (BMI) [Ratio] 43.27 kg/m2 Body surface area Derived from formula 2.21 m2 :35 Body temperature 98.3 f Heart Rate 66 /min Comments: Pattern: R egular Respiratory rate 18 /min Comments: Pattern: U nlabored O2 SAT 97 % Comments: Room air Systolic blood pressure 130 mm[Hg] Comments: Patien t Position: Sitting; Cuff Location: Left Arm; Cuff Size: Standard Diastolic blood pressure 86 mm[Hg] Comments: Patie nt Position: Sitting; Cuff Location: Left Arm; Cuff Size: Standard Weight 258.25 lb Body height 65 in Body mass index (BMI) [Ratio] 42.97 kg/m2 Body surface area Derived from formula 2.21 m2 [id number] Body temperature 97.3 f Heart Rate 66 /min Comments: Pattern: R egular Respiratory rate 18 /min Comments: Pattern: U nlabored O2 SAT 97 % Comments: Room air Systolic blood pressure 127 mm[Hg] Comments: Patien t Position: Sitting; Cuff Location: Left Arm; Cuff Size: Standard Diastolic blood pressure 81 mm[Hg] Comments: Patie nt Position: Sitting; Cuff Location: Left Arm; Cuff Size: Standard Weight 260 lb Body height 65 in Body mass index (BMI) [Ratio] 43.27 kg/m2 Body surface area Derived from formula 2.21 m2 :53 Body temperature 97.9 f Comments: Metho d: Oral Heart Rate 65 /min Comments: Pattern: R egular Respiratory rate 19 /min Comments: Pattern: U nlabored O2 SAT 100 % Comments: Room air Systolic blood pressure 145 mm[Hg] Comments: Patien t Position: Sitting; Cuff Location: Left Arm; Cuff Size: Standard Diastolic blood pressure 99 mm[Hg] Comments: Patie nt Position: Sitting; Cuff Location: Left Arm; Cuff Size: Standard Weight 260 lb :42 Body temperature 98.4 f Comments: Metho d: Oral Heart Rate 63 /min Comments: Pattern: R egular Respiratory rate 19 /min Comments: Pattern: U nlabored O2 SAT 99 % Comments: Room air Systolic blood pressure 138 mm[Hg] Comments: Patien t Position: Sitting; Cuff Location: Left Arm; Cuff Size: Standard Diastolic blood pressure 92 mm[Hg] Comments: Patie nt Position: Sitting; Cuff Location: Left Arm; Cuff Size: Standard Weight 257 lb Body height 65 in Body mass index (BMI) [Ratio] 42.77 kg/m2 Body surface area Derived from formula 2.20 m2 :55 Body temperature 98.6 f Comments: Metho d: Oral Heart Rate 66 /min Comments: Pattern: R egular Respiratory rate 19 /min Comments: Pattern: U nlabored O2 SAT 98 % Comments: Room air Systolic blood pressure 132 mm[Hg] Comments: Patien t Position: Sitting; Cuff Location: Left Arm; Cuff Size: Standard Diastolic blood pressure 92 mm[Hg] Comments: Patie nt Position: Sitting; Cuff Location: Left Arm; Cuff Size: Standard Weight 257 lb Body height 65 in Body mass index (BMI) [Ratio] 42.77 kg/m2 Body surface area Derived from formula 2.20 m2 :53 Body temperature 98.2 f Comments: Meth od: Oral Heart Rate 66 /min Comments: Pattern: R egular Respiratory rate 18 /min Comments: Pattern: U nlabored O2 SAT 96 % Comments: Room air Systolic blood pressure 125 mm[Hg] Comments: Patien t Position: Sitting; Cuff Location: Left Arm; Cuff Size: Standard Diastolic blood pressure 79 mm[Hg] Comments: Patie nt Position: Sitting; Cuff Location: Left Arm; Cuff Size: Standard Weight 258 lb Body height 65 in Body mass index (BMI) [Ratio] 42.93 kg/m2 Body surface area Derived from formula 2.20 m2 :30 Body temperature 98.7 f Comments: Metho d: Oral Heart Rate 76 /min Comments: Pattern: R egular Respiratory rate 19 /min Comments: Pattern: U nlabored O2 SAT 97 % Comments: Room air Systolic blood pressure 145 mm[Hg] Comments: Patien t Position: Sitting; Cuff Location: Left Arm; Cuff Size: Standard Diastolic blood pressure 102 mm[Hg] Comments: Patie nt Position: Sitting; Cuff Location: Left Arm; Cuff Size: Standard Weight 258 lb Body height 65 in Body mass index (BMI) [Ratio] 42.93 kg/m2 Body surface area Derived from formula 2.20 m2 :01 Body temperature 98.5 f Comments: Meth od: Oral Heart Rate 72 /min Comments: Pattern: R egular Respiratory rate 20 /min Comments: Pattern: U nlabored O2 SAT 94 % Comments: Room air Systolic blood pressure 155 mm[Hg] Comments: Patien t Position: Sitting; Cuff Location: Left Arm; Cuff Size: Standard Diastolic blood pressure 114 mm[Hg] Comments: Patie nt Position: Sitting; Cuff Location: Left Arm; Cuff Size: Standard Weight 260 lb Body height 65 in Body mass index (BMI) [Ratio] 43.27 kg/m2 Body surface area Derived from formula 2.21 m2 :15 Body temperature 97 f Comments: Metho d: Oral Heart Rate 85 /min Comments: Pattern: R egular Respiratory rate 19 /min Comments: Pattern: U nlabored O2 SAT 96 % Comments: Room air Systolic blood pressure 148 mm[Hg] Comments: Patien t Position: Sitting; Cuff Location: Left Arm; Cuff Size: Standard Diastolic blood pressure 98 mm[Hg] Comments: Patie nt Position: Sitting; Cuff Location: Left Arm; Cuff Size: Standard Weight 250 lb Body height 65 in Body mass index (BMI) [Ratio] 41.60 kg/m2 Body surface area Derived from formula 2.18 m2 :30 Body temperature 98.3 f Comments: Meth od: Oral Heart Rate 63 /min Comments: Pattern: R egular Respiratory rate 20 /min Comments: Pattern: U nlabored O2 SAT 99 % Comments: Room air Systolic blood pressure 164 mm[Hg] Comments: Patien t Position: Sitting; Cuff Location: Left Arm; Cuff Size: Standard Diastolic blood pressure 111 mm[Hg] Comments: Patie nt Position: Sitting; Cuff Location: Left Arm; Cuff Size: Standard Weight 252 lb Body height 65.5 in Body mass index (BMI) [Ratio] 41.30 kg/m2 Body surface area Derived from formula 2.19 m2 :04 Body temperature 98.3 f Comments: Metho d: Oral Heart Rate 65 /min Comments: Pattern: R egular Respiratory rate 19 /min Comments: Pattern: U nlabored O2 SAT 98 % Comments: Room air Systolic blood pressure 154 mm[Hg] Comments: Patien t Position: Sitting; Cuff Location: Left Arm; Cuff Size: Standard Diastolic blood pressure 97 mm[Hg] Comments: Patie nt Position: Sitting; Cuff Location: Left Arm; Cuff Size: Standard Weight 249 lb Body height 65.5 in Body mass index (BMI) [Ratio] 40.81 kg/m2 Body surface area Derived from formula 2.18 m2 :32 Body temperature 100.1 f Comments: Metho d: Oral Heart Rate 72 /min Comments: Pattern: R egular Respiratory rate 19 /min Comments: Pattern: U nlabored O2 SAT 99 % Comments: Room air Systolic blood pressure 149 mm[Hg] Comments: Patien t Position: Sitting; Cuff Location: Left Arm; Cuff Size: Standard Diastolic blood pressure 97 mm[Hg] Comments: Patie nt Position: Sitting; Cuff Location: Left Arm; Cuff Size: Standard Weight 237 lb Body height 65.5 in Body mass index (BMI) [Ratio] 38.84 kg/m2 Body surface area Derived from formula 2.14 m2 :14 Body temperature 98 f Comments: Metho d: Oral Heart Rate 77 /min Comments: Pattern: R egular Respiratory rate 19 /min Comments: Pattern: U nlabored O2 SAT 98 % Comments: Room air Systolic blood pressure 132 mm[Hg] Comments: Patien t Position: Sitting; Cuff Location: Left Arm; Cuff Size: Standard Diastolic blood pressure 93 mm[Hg] Comments: Patie nt Position: Sitting; Cuff Location: Left Arm; Cuff Size: Standard Weight 237 lb Body height 65.5 in Body mass index (BMI) [Ratio] 38.84 kg/m2 Body surface area Derived from formula 2.14 m2 :15 Body temperature 97.6 f Comments: Meth od: Oral Heart Rate 66 /min Comments: Pattern: R egular Respiratory rate 19 /min Comments: Pattern: U nlabored O2 SAT 99 % Comments: Room air Systolic blood pressure 116 mm[Hg] Comments: Patien t Position: Sitting; Cuff Location: Left Arm; Cuff Size: Standard Diastolic blood pressure 82 mm[Hg] Comments: Patie nt Position: Sitting; Cuff Location: Left Arm; Cuff Size: Standard Weight 236 lb Body height 65.5 in Body mass index (BMI) [Ratio] 38.67 kg/m2 Body surface area Derived from formula 2.13 m2 :04 Body temperature 97.7 f Comments: Meth od: Oral Heart Rate 73 /min Comments: Pattern: R egular Respiratory rate 19 /min Comments: Pattern: U nlabored O2 SAT 99 % Comments: Room air Systolic blood pressure 106 mm[Hg] Comments: Patien t Position: Sitting; Cuff Location: Left Arm; Cuff Size: Standard Diastolic blood pressure 80 mm[Hg] Comments: Patie nt Position: Sitting; Cuff Location: Left Arm; Cuff Size: Standard Weight 231 lb Body height 65.5 in Body mass index (BMI) [Ratio] 37.86 kg/m2 Body surface area Derived from formula 2.11 m2 :39 Body temperature 97.2 f Comments: Metho d: Oral Heart Rate 79 /min Comments: Pattern: R egular Respiratory rate 19 /min Comments: Pattern: U nlabored O2 SAT 95 % Comments: Room air Systolic blood pressure 130 mm[Hg] Comments: Patien t Position: Sitting; Cuff Location: Left Arm; Cuff Size: Standard Diastolic blood pressure 87 mm[Hg] Comments: Patie nt Position: Sitting; Cuff Location: Left Arm; Cuff Size: Standard Weight 234 lb Body height 65.5 in Body mass index (BMI) [Ratio] 38.35 kg/m2 Body surface area Derived from formula 2.13 m2 :29 Body temperature 96.7 f Comments: Meth od: Oral Heart Rate 68 /min Comments: Pattern: R egular Respiratory rate 19 /min Comments: Pattern: U nlabored O2 SAT 97 % Comments: Room air Systolic blood pressure 134 mm[Hg] Comments: Patien t Position: Sitting; Cuff Location: Left Arm; Cuff Size: Standard Diastolic blood pressure 83 mm[Hg] Comments: Patie nt Position: Sitting; Cuff Location: Left Arm; Cuff Size: Standard Weight 237 lb Body height 65.5 in Body mass index (BMI) [Ratio] 38.84 kg/m2 Body surface area Derived from formula 2.14 m2 :13 Body temperature 97.5 f Comments: Metho d: Oral Heart Rate 68 /min Comments: Pattern: R egular Respiratory rate 19 /min Comments: Pattern: U nlabored O2 SAT 98 % Comments: Room air Systolic blood pressure 121 mm[Hg] Comments: Patien t Position: Sitting; Cuff Location: Left Arm; Cuff Size: Standard Diastolic blood pressure 85 mm[Hg] Comments: Patie nt Position: Sitting; Cuff Location: Left Arm; Cuff Size: Standard Weight 243 lb Body height 65.5 in Body mass index (BMI) [Ratio] 39.82 kg/m2 Body surface area Derived from formula 2.16 m2 Results Date Description Value Details :14 UA dip (21147) UA - GLUCOSE Negative g/dL (Normal) Range: 0 -99 UA - BILIRUBIN Negative (Normal) UA - KETONES Negative mg/dL (Normal) Range: 0-4 UA - SPECIFIC GRAVITY 1.015 (Normal) Range: 1.0 001-1.035 UA - BLOOD hemolyzed trace (Normal) UA - PH 5.0 (Normal) Range: 4.6-7.5 UA - PROTEIN Negative mg/dL (Normal) URINE UROBILINOGEN SEMIQUAN 0.2 mg/dL (Normal) UA - NITRITE Negative (Normal) UA - LEUKOCYTE ESTERASE Negative (Normal) :18 Hemoccult Cards (13051) Hemoccult Cards Negative (Normal) :19 Hemoccult Cards (72499) Hemoccult Cards Negative (Normal) :27 FLU SWAB (01072) Influenza A Ag negative (Normal) Comments: con trol line present :27 STREP SWAB (13275) STREPTOCOCCUS GRP A, INFCTS ANTIGN negative (No rmal) Comments: control line present :08 UA dip (33228) UA - GLUCOSE Negative g/dL (Normal) Range: 0 -99 UA - BILIRUBIN Negative (Normal) UA - KETONES Negative mg/dL (Normal) Range: 0-4 UA - SPECIFIC GRAVITY 1.010 (Normal) Range: 1.0 001-1.035 UA - BLOOD Large(+++) (Normal) UA - PH 5.0 (Normal) Range: 4.6-7.5 UA - PROTEIN 300(+) mg/dL (Normal) URINE UROBILINOGEN SEMIQUAN 0.2 mg/dL (Normal) UA - NITRITE Negative (Normal) UA - LEUKOCYTE ESTERASE moderate (Abnormal) :56 LIPID PANEL (13531) CHOLESTEROL TOTAL, SERUM 141 mg/dL (Normal) Ran ge: 0-200.0 HDL CHOLESTEROL-DIRECT 43 mg/dL (Normal) Range: 30.0-70.0 TRIGLYCERIDES 272 mg/dL (Abnormal) Range: 40- 160 LDL CHOLESTEROL-DIRECT 43 mg/dL (Abnormal) Rang e: 50.0-190.0 :11 STREP SWAB (69790) Comments: 04-08-18 Ne gative on office eval STREPTOCOCCUS GRP A, INFCTS negative (Normal) C omments: Control line presentnegative equals negativepositive equals positive ANTIGN :32 URINALYSIS, AUTOMATED, W/O MICRO (13631) UA - APPEARANCE clear (Normal) UA - COLOR yellow (Normal) UA - GLUCOSE Negative g/dL (Normal) UA - KETONES Negative mg/dL (Normal) UA - SPECIFIC GRAVITY 1.030 (Normal) UA - PH 6.5 (Normal) UA - BLOOD Trace (non-hem) (Normal) UA - BILIRUBIN Negative (Normal) UA - PROTEIN Negative mg/dL (Normal) UA - NITRITE Negative (Normal) UA - REDUCING SUBSTANCE n/a (Normal) UA - LEUKOCYTE ESTERASE Negative (Normal) UA - URINE SEDIMENT n/a (Normal) UA - COMMENTS n/a (Normal) Treatment Plan Pap Thinprep (37188); Ordered: 1ANA (ANTINUCLEAR ANTIBODY) (40883); Ordered: 05/21/2020IPID PANEL (73742); Ordered: 05/21/2020MP (43354); Ordered: 05/21/2020BC, PLATELETS & AUT DIFF (72282); Ordered: 05/21/2020ROGESTERONE (73404); Ordered: 05/21/2020TESTOSTERONE FREE (82004); Ordered: 05/21/2020 TESTOSTERONE TOTAL (55063); Ordered: 05/21/2020GONADOTROPIN-FSH (44692); Ordered: 05/21/2020STRADIOL (37536); Ordered: 05/21/2020THYROXINE FREE; Ordered: 05/21/2020TSH (THYROID STIMULATING HORMONE); Ordered: 05/21/2020TT4 (THYROXINE TOTAL); Ordered: 05/21/2020ed Rate (87218); Ordered: 02/03/2019CRP (77314); Ordered: 02/03/2019 ISSAC (ANTINUCLEAR ANTIBODY) (28400); Ordered: 02/03/2019; Note: With rwflex cascadeURIC ACID BLOOD (87694); Ordered: 02/03/2019RHEUMATOID FACTOR-QUAL (94732); Ordered: 02/03/2019URINALYSIS, AUTOMATED, W/O MICRO (24986); Ordered: 04/08/2018; Note: Not done as we were rechecking for hematuria but she has started her monthly cycle.We will recheck on her office f/u in 2 weeks.Stool C&S (78036); Ordered: 02/21/2018Stool for Occult Blood (47687); Ordered: 02/21/2018Stool for C. Diff (73865); Ordered: 02/21/2018H.Pylori Stool (53436); Ordered: 02/21/2018Stool for Occult Blood (48738); Ordered: 01/28/2018Stool for Occult Blood (07608); Ordered: 01/28/2018Stool for Occult Blood (16236); Ordered: 01/28/2018FREE TRIDOTHYRONINE (T3) (48757); Ordered: 01/28/2018TT4 (THYROXINE TOTAL) (31018); Ordered: 01/28/2018TSH (THYROID STIMULATING HORMONE) (61400); Ordered: 01/28/2018LIPID PANEL (40265); Ordered: 01/28/2018CMP (60612); Ordered: 01/28/2018CBC, PLATELETS & AUT DIFF (09714); Ordered: 01/28/2018 THYROXINE FREE (69604); Ordered: 01/30/2017TT4 (THYROXINE TOTAL) (74077); Ordered: 01/30/2017CRP (76833); Ordered: 01/30/2017CMP (01655); Ordered: 01/30/2017CBC, PLATELETS & AUT DIFF (08776); Ordered: 01/30/2017LIPID PANEL (44715); Ordered: 01/30/2017TSH (THYROID STIMULATING HORMONE) (01872); Ordered: 01/30/2017THYROXINE FREE; Ordered: 02/07/2016TSH (THYROID STIMULATING HORMONE); Ordered: 02/07/2016TT4 (THYROXINE TOTAL); Ordered: 02/07/2016CMP (81444); Ordered: 02/07/2016CBC, PLATELETS & AUT DIFF (68196); Ordered: 02/07/2016 LIPID PANEL (66749); Ordered: 02/07/2016H.Pylori Stool (83510); Ordered: 10/12/2015Stool C&S (18472); Ordered: 10/12/2015Stool for C. Diff (96800); Ordered: 10/12/2015Stool for Occult Blood (46448); Ordered: 10/12/2015Stool for O & P (43187); Ordered: 10/12/2015MICROALBUMIN URINE QUANT (26538); Ordered: 05/10/2015TSH (THYROID STIMULATING HORMONE) (91995); Ordered: 05/10/2015LIPID PANEL (69289); Ordered: 05/10/2015CMP (19014); Ordered: 05/10/2015CBC, PLATELETS & AUT DIFF (18967); Ordered: 05/10/2015MICROALBUMIN URINE QUANT (68920); Ordered: 11/25/2014TSH (THYROID STIMULATING HORMONE) (22555); Ordered: 11/25/2014 CMP (95154); Ordered: 11/25/2014CBC, PLATELETS & AUT DIFF (28202); Ordered: 11/25/2014LIPID PANEL (62252); Ordered: 11/25/2014TSH (THYROID STIMULATING HORMONE) (14673); Ordered: 11/24/2014LIPID PANEL (41261); Ordered: 11/24/2014CMP (72150); Ordered: 11/24/2014CBC, PLATELETS & AUT DIFF (61518); Ordered: 11/24/2014ESTROGENS TOTAL (53958); Ordered: 04/02/2014GONADOTROPIN-LH (02209); Ordered: 04/02/2014GONADOTROPIN-FSH (09175); Ordered: 04/02/2014Stool for Occult Blood (08471); Ordered: 08/28/2012CMP (73016); Ordered: 08/28/2012LIPID PANEL (06941); Ordered: 08/28/2012CBC, PLATELETS & AUT DIFF (03031); Ordered: 08/28/2012NAT (30972); Ordered: 08/28/2012THYROXINE FREE; Ordered: 08/28/2012TSH (THYROID STIMULATING HORMONE); Ordered: 08/28/2012TT4 (THYROXINE TOTAL); Ordered: 08/28/2012FLU SWAB* (79373); Ordered: 05/02/2012; Note: Negative Advance Directives No Advance Directive Information Available Encounters Review On: 09-Sep-2020 10:27 [facility] Annotation/Addendum - Atypical squamous cells of undetermined significance on cytologic smear of cervix (ASC-US) (795.01 | R87.610), BV (bacterial vaginosis) (616.10 | N76.0) On: 01-Jun-2020 16:46 [facility] End: 01-Jun-2020 18 :58 Office Visit - Encounter for preventive care (V70.0 | Z00.00), Midline low back pain without sciatica, unspecified chronicity (724.2 | M54.5), Hot flashes (782.62 | R23.2), HTN (hypertension), benign (4 On: 21-May-2020 8:37 01.1 | I10), Encounter for screening for malignant neoplasm of cervix (V76.2 | Z12.4) End: 21-May-2020 15:14 Encounter Reason: Pap Smear - Pap smear: Date: (2018). Nutrition: balanced diet. Patient does not exercise. Patient sleeps 5 hours per night. The patient reports that she does not perform monthly breast self exam as cons istently as she should. Her last MMG was December, and her last SBE was in February. She denies noting any suspicious lumps, nipple retraction/dimpling, or discharge. Note for "Pap Smear": Pt is here tod ay for a pap smear. She has her last one in 2019. Pt is complaining and is worried about heavy periods she is having. She is a , LMP 05/11/20. Menarche at approx age 15-16. Cycle every 30-31 days, la sting 3-4 days with only one heavy day. Some bloating and food cravings (chocolate) prior to menses, some mild cramping. She is not currently sexually active and has not been since January of 2019. She denies vaginal dryness/irritation, disc harge, and prior history of pain with intercourse. Pt is allergic to Relafen, Carafate, Flexeril., Hot flashes - Patient does report hot flashes for several months as well as some menstrual irregulari ty. She missed her menstruation in , and has had some increase in the heaviness of her menstruation over the last several months. She is interested in having her hormone levels checked. , Lower back pain - She reports having rec ent onset of lower back pain for several months. She has difficulty even standing and washing dishes, and is unable to tolerate walking exercise as she was previo usly able to. The pain is described as m oderate ache at the midline lower back. Denies radiation to either hip/leg. Standing/walking for long periods of time worsens the pain, she has not identified any alleviating factors. She has not tried stretches/NSAIDs yet. She would like to utilize conservative management, but if this does not help she would like to proceed with imaging and ortho referral. 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 She was seen for colon screen approx a year ago for altered bowel habits and End: 08-Apr-2019 9:49 elevated CEA. She saw DR Tony for t he colonoscopy. She has had hematuria. At present, she denies any B-B-T stools or blood in the urine. On Physical exam there is a palpable area of lumpiness at 6:00 to 7:00 in the lower right outer qu adant of the right breast at the distamt margin approx 10 cm from the nipple. I do not palpate any axillary or intercostal lymph nodes. Pt says she noted the ar ea also approx 2 weeks ago but did not d o a BSE in Jan or Feb so is not certain as to how long it has been there. Today it is slightly tender to palpation and there is no associated nipple discharge. We will schedule a diagnostic MMG. She had annual labs done recently and we will get a copy and review and check a urine today.), has good energy level and is sleeping well. Pap smear: Date: (04/2016). Contraceptive history: The patient is n ot using any method of contraception at this time. Nutrition: balanced diet. Patient exercises a weekly. Patient sleeps 7 hours per night. The patient reports jeffery t she performs monthly self breast exam. Note for "Pap Smear": Pt denies being , Having , using and IUD, Hormone therapy, or being Postmenopausal. She has never had surgeries, or taken Chemo or radiation. Her LMP was 020-03/28/2019. Pt is feeling well with no complaints today. Pt is allergic to Relafen, Carafate, and Flexeril.[facility] Office Visit - HTN (hypertension), benig n (401.1 | I10), Other hyperlipidemia (272.4 | E78.49), Joint symptoms (719.60 | R29.91), Psoriatic arthritis (696.0 | L40.50), History of hematuria (V13.09 | Z87.448) On: 03-Feb-2019 10:30 Encounter Reason: Follow Up - Current sy mptoms include other. Note for " discuss consultation": Pt is here today for a follow up. Pt was going to get her pap smear done today but she decided to wait till March and hav End: 03-Feb-2019 19:28 e it done the same time her Mammogram is needing to be scheduled. Pt had fasting labs done at the [facility] done this morning. she will get a copy of them to us when she gets the results in. Pt will need refil ls while she is here today. Pt is allerg ic to Relafen, Carafate, Flexeril., Joint pain - The onset of the joint pain has been gradual (Pt has been having an increase on joint pa in and has been treating the rash she cordova s at times with a topical OTC Psoriasis oint that has as an active ingredient of salicylic acid and she thinks this has worked better than other topicals we have tried. Now she describes joint pain in wrists with CT Sx' when driving and has pain in knees worse in left knee and left ankle pain.) and has been occurring in an intermittent pattern for months (She says the joint pain has been coming and going for several months and when she went to [facility] she had a flare and thought it might have been aggrevated by the altitude as she also had SOB and fatigue w hile there. She says she notes the kimo nt pain is also worse with cooler temps and weather changes.). The course has been recurrent. The joint pain is described as moderate (We will try to get a rheuma tology referral appt with Dr Roldan but s he wants to wait for the referral until she comes back in Mar and will [facility] to [facility] them on her appt [facility]. [facility] not [facility] s he will try to wait until she RTO here in Mar 2019).[facility] Med Refill - Skin tag, acquired (701.9 | L91.8) On: 10:43 [facility] End: 01-Oct-2018 10:44 Office Visit - History of hematuria (V13 .09 | Z87.448), Skin tag, acquired (701.9 | L91.8) On: 22-Apr-2018 9:00 Encounter Reason: Follow Up - Date: (04-22 Pt is in for f/u and urine recheck after recent UTI, and she says she is feeling much better. No fever,chills or dysuria. She does have a skin tab on the left side of her nec End: 22-Apr-2018 19:18 k she would like removed as it is easily irritated and gets tender from her collars rubbing it. She has completed her antibioics and will let us know if sx's recur in less the a month. Also today--). Cu rrent symptoms include other. Note for " discuss consultation": Pt is here today for a follow up to recheck her UA. Pt is feeling much better since her last visit. She is complaining of having a skin ta g on the left side of Her neck area and she is started to aggravate her a lot. Pt is wanting to have it removed. She has no other complaints today. Pt is allergic to Carate, Flexeril, Reflen.[facility] Office Visit - Sore throat (462 | J02.9) , Pain, flank, bilateral (789.09 | R10.9), History of hematuria (V13.09 | Z87.448), Allergic sinusitis (477.9 | J30.9) On: 08-Apr-2018 11:00 Encounter Reason: Sore throat - The onse t of the sore throat has been gradual ([id number] is in for follow up after an ER visit on 04-08-2018. She was dizzy and had N/V and was treated with IV re-hydration and had End: 08-Apr-2018 12:41 labs, CT of head and U/A in ER.Hematuri a was noted but no findings requiring C&S of the urine.CT scan of head was negative for any intracranial process and no evidence of sinus infection.She still feels "Bad with sore throat and sinus dr ainage and pressure but low fever and feels chilled."Today we will recheck urine for blood but when she went to collect specimen she had started her monthly cycle .She describes the sore throat as associ ated with a dry cough and scratchy feeling.Onset of upper respiratory sx's today--) and has been occurring in an intermittent pattern for 2 days. The course has b een unchanged. The symptoms have been as sociated with chills, cough (DRY cough), difficulty in swallowing, fever, post-nasal drip and runny nose. Note for "Sore throat": Pt is here today with complaints of a sore throat. She started feeling b ad yesterday and she has been achy in her legs, arms, and shoulder. Pt has been having fever and chills. Pt also complains of having a headache through the fronta l lobe today. She has allergy problems and she didn't know if its sinuses or strep throat. Pt is allergic to Carafate, Reflexen, and Flexeril.[facility] Office Visit - Benign colon polyp (211.3 | K63.5), Adenomatous polyp of transverse colon (211.3 | D12.3) On: 19-Mar-2018 9:10 [facility] General Surgery End: 19-Mar-2018 13:07 Office Visit - Elevated CEA (795.81 | R9 7.0), Irregular bowel habits (569.89 | R19.8), Family history of breast cancer in female (V16.3 | Z80.3) On: 28-Feb-2018 15:20 [facility] General Surgery End: 28-Feb-2018 18:04 Office Visit - Altered bowel habits (787 .99 | R19.4), Elevated CEA (795.81 | R97.0) On: 21-Feb-2018 15:00 Encounter Reason: Follow Up - Date: (02-21 Patient is in to review recent lab results as we requested and she also has labs that were done at the [facility] and results are both very similar.She did not have a CEA done at the End: 21-Feb-2018 16:51 [facility] but the test we did was found to be elevated at 3.7 and she is a non smoker. She admits she has been having frequent loose stools for the past 6 to 8 months. At first she thought it was due to h aving had her gall bladder removed but t hese sx's started long after her cholecystectomy.She denies any other sx's and otherwise feels well. Today). Current symptoms include other. There is a family his tory of cardiovascular disease. Past med ical history includes hypertension and other (History of thyroid nodules.). Note for " discuss consultation": Pt is here today for a follow up to discuss some lab work. Pt has been feeling good with no complaints. She had some lab work done at the [facility] and some done with us and she is here today to discuss that. Pt is allergic to 3 medications.[facility] Office Visit - HTN (hypertension), benig n (401.1 | I10), Other hyperlipidemia (272.4 | E78.49), Encounter for preventive care (V70.0 | Z00.00), Multiple thyroid nodules (241.1 | E04.2) On: 28-Jan-2018 9:30 Encounter Reason: Follow Up - Date: (Patient is in for annual exam and preventive care and lab monitoring for med efficacy and medication refills. She says she is feeling well without c/o's. Denies chest pain End: 28-Jan-2018 11:50 , heart beat irregularities, SOB. She h as not had any GI sx's, no N/V/D/C no B-B-T stools.Her last MMg was 02-09-2017. She has recently seen her eye doctor and eye health was reported to be good with n o elevated eye pressure or cataracts. S he does wear glasses.Today). Current symptoms include other. Note for " discuss consultation": Pt is here today for a follow up to get medication refills. Pt has no voiced complaints today. Her BP has b een doing good and she monitors it at home. Pt is allergic to Flexeril, Relafen, and Carafate.[facility] Historical Summary On: 07-Sep-2017 18:46 [facility] End: 07-Sep-2017 18:47 Nurse Visit - Other hyperlipidemia (272.4 | E78.49) On : 31-Aug-2017 9:34 [facility] End: 31-Aug-2017 9:58 Office Visit - HTN (hypertension), benig n (401.1 | I10), Other hyperlipidemia (272.4 | E78.49), Obesity (BMI 30-39.9) (278.00 | E66.9) On: 30-Aug-2017 14:58 Encounter Reason: Follow Up - Date: (08-19 Pt is in for her routine 6 month follow up and and med refills. She says she is feeling well and tolerating her b/p meds. She has started walking daily and says she has mo End: 30-Aug-2017 17:34 re energy and is working on weigh loss. She denies chest discomfort, SOB, bowel or bladder changes. She reports she has minimal heart burn or reflux sx's and denies B-B-T stools. Denies N/V/D/C. Her hernia is stable and the surgeon did no t recommend repair at this time. She is encouraged to keep her bowels moving and and if sx's change RTO. PL). Current symptoms include other. Note for " discuss c onsultation": Pt is here today for a fol low up. Pt is feeling well today. She has been keeping her blood pressure under control. Pt has been walking Sunday- Sunday every evening for 1 month. Pt watches w hat she is eating and takes her medicati on as directed. Pt is here today to get refills.[facility] Admission Note On: 07-Feb-2017 11:08 [facility] End: 07-Feb-2017 11 :13 No Charge Visit - Breast lump in female (611.72 | N63. 0) On: 01-Feb-2017 12:36 [facility] End: 01-Feb-2017 12 :44 Office Visit - Multiple thyroid nodules (241.1 | E04.2), Dyslipidemia (272.4 | E78.5), Enlarged thyroid (240.9 | E04.9), HTN (hypertension), benign (401.1 | I10), Encounter for screening breast examinat On: 30-Jan-2017 9:53 ion (V76.10 | Z12.39), Hot flushes, perimenopausal (62 7.2 | N95.1) End: 30-Jan-2017 12:52 Encounter Reason: Annual Pap Smear - Pt is here today for her annual pap smear. Pt reports she has no complaints or concerns today and is only her today for her pap smear. Pt will be needing medication refills today. Pt reports she is feeling good and has no p ain today. , Breast lump - The onset of the breast lump has been sudden (two weeks ago noted a swelling in the lef t axilla with slight warmth and tenderne ss when it occurred, it resolved without treatment. The swelling and tenderness persisted several days and resolved spontaneously without treatment. She has been experiencing an increase in night sweats and hot flushes alternating with cold sensation at night, mood swings, increased insomnia, and irritability.) and has been occurring in an intermittent pattern f or months (Sx's have been increasing for several months.). The course has been recurrent. The breast lump is described as moderate.[facility] Med Refill - HTN (hypertension), benign (401.1 | I10) On: 09-Jan-2017 12:33 [facility] End: 09-Jan-2017 12 :39 Med Refill - Medication refill (V68.1 | Z76.0) On: 12:55 [facility] End: 24-May-2016 13: 05 Office Visit - Routine health maintenanc e (V70.0 | Z00.00), Tinea corporis (110.5 | B35.4), HTN (hypertension), benign (401.1 | I10), Sleep apnea with hypersomnolence (780.53 | G47.10, G47.30), Enlarged thyroid (240.9 | E04.9) On: 16-May-2016 8:33 Encounter Reason: Pap Smear - The patien t feels well with minor complaints (Says she has seen the [facility] and was told she needs a C-PAP for sleep apnea.), has decreased energy level and is sleeping poorly (We will End: 16-May-2016 10:50 get [facility] to evaluate and get he r set up.). Pap smear: Date: (02/07/2016). Nutrition: balanced diet. Patient does not exercise. Patient sleeps 5 hours per night. The patient reports that she per forms monthly self breast exam. Note for "Pap Smear": Pt is here today for a pap smear. She had one done on February 07, 2016 and was requested to repeat it again in 3 months. Pt has no complaints today.[facility] Med Refill - Pap smear, as part of routi ne gynecological examination (V76.2 | Z01.419) On: 17-Feb-2016 14:24 [facility] End: 17-Feb-2016 14 :25 Office Visit - [facility] (V70.0 | Z00.00), HTN (hypertension), benign (401.1 | I10), Multiple thyroid nodules (241.1 | E04.2) On: 07-Feb-2016 8:44 Encounter Reason: Pap Smear - The patikathy wallace feels well with minor complaints, has good energy level and is sleeping well. Pap smear: Date: (Dec 2015, says she has never had any problems on her PAP's. She does report that h End: 07-Feb-2016 12:26 er menstrual cycles have been irregular at times and she occasional has some hot flushing and sweats at night then feels cold to hot.). Nutrition: inappropriate diet. Patient does not exercise. Patient sleeps 7 hours per night. The patient re ports that she does not perform monthly breast self exam. Note for "Pap Smear": Pt is here today for a pap smear. She had her LMP Jan 062015. Pt denies being pr egnant, she doesn't use any type of eduin h control, or she hasn't take Chemo or radiation. Pt has never had an abnormal pap smear. Her Mammogram will be due in March 2016. Pt is feeling well with no complaints today., Hypertension - The onset of the hyperten morena has been gradual. The hypertension has been occurring in a continuous (On multiple meds with beta dayday and calcium channel dayday.) pattern for years. Th e course has been constant (Controlled m ost of the time on home checks but is noted to be elevated in office today.). Symptoms include chest pain (Reports some right sided chest discomfort.), while ther e is no dyspnea on exertion, edema (But has noted occasionally has some mild swelling around the ankles at the end of the day. She says this only happens once in awhile. Questioned as to salt intake, sitting for long periods, etc.), headach e, orthopnea, palpitations or visual changes. There is no adequate exercise (Says she did exercise regularly but lately she has not been as consistent.).[facility] Office Visit - Abdominal pain (789.00 | R10.9) On: Sep-2015 13:53 Encounter Reason: Follow Up - Current sy mptoms include abdominal pain and other. Note for " discuss consultation": Pt is here today for a hospital follow up. She came in the office with complaints of abdominal pains that End: 19-Oct-2015 17:17 was sharp and hurting so bad patient wa s in tears in the office that day. She went to the ER and she was told she had a UTI and she was put on Nitrofurantoin 100mg bid. Pt is here today with complaints of having abdominal pain right on. It's in her LLQ area and up and down that side to her Lower abdominal area. Pt is also had some diarrhea with this. She took some meds and it's better now. She has no other complaints today. [facility] Office Visit - Sinusitis (473.9 | J32.9) , HTN (hypertension), benign (401.1 | I10) On: 12-May-2016 9:27 Encounter Reason: Cold Symptoms - Sympto ms include sneezing, nasal congestion, scratchy throat, sore throat, productive cough and headache. Onset was sudden 1 day(s) ago. Note for "Cold symptoms": Pt is here today with c End: 01-Jul-2015 10:03 omplaints of cold symptoms. She complain s of having right ear pain, body aches, chills, fever, coughing up sputum, wheezing, sore scratchy throat. This all started yesterday. Pt has no other complaints today.[facility] Annotation/Addendum - Low back pain (724 .2 | M54.5), Dyslipidemia (272.4 | E78.5) On: 01-Jun-2015 17:36 [facility] End: 01-Jun-2015 17 :55 Office Visit - Blood in urine (599.70 | R31.9), HTN (hypertension), benign (401.1 | I10), Dyslipidemia (272.4 | E78.5), Enlarged thyroid (240.9 | E04.9), Routine health maintenance (V70.0 | Z00.00) On: 10-May-2015 11:01 Encounter Reason: Blood in urine - The b lood in urine has been occurring for 2 days. The course has been increasing. The urine is described as bloody throughout voiding. The symptoms have been associated with abdominal p End: 12-May-2015 17:08 ain and flank pain. Note for "Blood in u rine": Pt is here today with complaints of having blood in her urine. She started urinating a lot Sunday and she noticed some blood in her urine. Pt would like fo r us to check a UA on her in the office today. Pt shows large amounts of blood and moderate Leukocytes in her urine. She has no other complaints today.[facility] Office Visit - Routine health maintenanc e (V70.0 | Z00.00), Abdominal pain (789.00 | R10.9), Right upper quadrant pain (789.01 | R10.11) On: 04-Jan-2015 9:13 Encounter Reason: Pap Smear - The patien t feels well with minor complaints (Does report some tenderness in the RUQ of the abdomen, with occasional heartburn but denies any obvious blood in the stool, and no N/V/D/C. End: 06-Jan-2015 8:52 e has had a previous lap shandra and has b cecy told she has some type of hernia and saw a surgeon but he did not recommend any treatment.), has good energy level and is sleeping well. Pap smear: Date: (201 4, approx 1 year ago). Nutrition: [facility] ed diet (Patient says she tries to eat right but is "overweight."). Patient exercises a daily. Patient sleeps 7 hours per night. The patient's libido is normal. T he patient reports that she performs mon thly self breast exam (Last MMG was in February 2013.). Note for "Pap Smear": Pt is here today for a pap smear. She hasn one done abut this time last year through the [facility]., Abdominal pain - The onset of the abdomi nal pain has been gradual (She has some dyspepsia with occ heartburn and indigestion. ) and has been occurring in an intermittent pattern for 2 months. The cours e has been increasing. The abdominal saeed n is described as a moderate crampy, colicky and pressure sensation (worse in the right upper quardrant. ). The abdominal pain is described as being located in th e right upper quadrant. The abdominal pa in does not radiate. The symptoms are relieved by bowel movements. The symptoms have been associated with abdominal distention and bloating, while the symptoms h ave not been associated with anorexia, b loody stools, diarrhea or fever. Note for "Abdominal pain": Pt is here today with complaints of RUQ pain. Her gall bladder has already been removed. She has been having this problem for a while an was s ent of a specialist about it and was told she was having acid reflux and was told to take medication for it that was prescribed. Pt is still [facility] - Dyslipidemia (272. 4 | E78.5), HTN (hypertension), benign (401.1) On: 25-Nov-2014 13:34 [facility] End: 25-Nov-2014 13: 37 Annotation/Addendum - HTN (hypertension) , benign (401.1), Dyslipidemia (272.4 | E78.5) On: 24-Nov-2014 16:24 [facility] End: 24-Nov-2014 16: 28 Office Visit - HTN (hypertension), benig n (401.1), Stress (V62.89 | F43.9), Tinea versicolor (111.0 | B36.0), Tongue discoloration (529.8 | K14.8) On: 12-Nov-2014 15:30 Encounter Reason: Follow Up - Current sy mptoms include other. Note for " discuss consultation": Pt is here today for a follow up. She is complaining of blood pressure problems and has been increased on both of her medica End: 18-Nov-2014 10:25 tions and it's still not normal like it should be. I noticed while check patients tempter she has some black small dots on the end of her tongue. It doesn't hurt her but has been there for about 1 year . Pt said they seem to have gotten darke r over the past year. She has no other complaints and will need refills today while she is here.[facility] Med Refill - HTN (hypertension) (401.9 | I10) On: 10:42 [facility] End: 14-Oct-2014 10 :44 Med Refill - HTN (hypertension), benign (401.1) On: 10:05 [facility] End: 13-Oct-2014 10 :07 Office Visit - Menses, irregular (626.4 | N92.6), Abdominal pain (789.00 | R10.9), Low back pain (724.2 | M54.5), Routine health maintenance (V70.0 | Z00.00), Sinusitis (473.9 | J32.9), HTN (hypertension) (401.9 | I10) On: 02-Apr-2014 9:03 Encounter Reason: Cold Symptoms - Sympto ms include sneezing, nasal congestion, runny nose, postnasal drainage, sore throat, dry cough and headache, while symptoms do not include scratchy throat, hoarseness, productive co End: 14-Apr-2014 15:42 ugh, facial pressure or facial pain. Ons et was 1 day(s) ago. Note for "Cold symptoms": Pt is here today with complaints of having cold symptoms. These symptoms started on her yesterday. Pt has been naus eated but thinks its coming from the daniel inage she has been having. Pt hasn't took anything to help OTC., Abdominal pain - The abdominal pain has been occurring for months. The abdominal pain is described as crampy. The abdominal pain is described as being located in the right upper quadrant (Pt has had her gallbladder taken out.). The abdominal pain does not radiate. Note for "Abdominal pain": Pt is compl aining of RUQ pain and low back pain. Sh e states when she is standing up washes dishes or standing up on her feet long periods of times she hurts in her lower back. She states it feels like a grinding pain in her back. [facility] Office Visit - Fever and chills (780.60 | R50.9), Sore throat (462 | J02.9), Sinusitis, acute (461.9 | J01.90) On: 19-Dec-2012 8:23 Encounter Reason: Fever and chills - The fever and chills have been occurring for 2 days. The course has been increasing. The patient has a temperature of up to 100 F. The symptoms have been associated with chills and he End: 19-Dec-2012 9:05 adache. Note for "Fever and chills": Pt is here today wtih complaints of having fever, chills, sore throat, headaches, and body aches X 2 days now. She has a fever of 100.1 in the office today. Pt states she is feeling worse today. [facility] Annotation/Addendum - Routine health maintenance (V70. 0 | Z00.00) On: 12-Dec-2012 10:51 [facility] End: 12-Dec-2012 11 :05 Office Visit - Health maintenance examin ation (V70.0 | Z00.00), HTN (hypertension) (401.9 | I10) On: 06-Dec-2012 9:01 Encounter Reason: Pap Smear - The patien t feels well with no complaints, has good energy level and is sleeping well. Pap smear: Date: (1 YEAR AGO). Nutrition: balanced diet. Patient does not exercise. Patient sleeps 7 ho End: 06-Dec-2012 10:23 urs per night. The patient reports that she does not perform monthly breast self exam. Note for "Pap Smear": Pt is here today for a pap smear. She would also like to get a mammogram ordered today also. Pt had some lab work done and would like to discuss the results of that.[facility] Office Visit - HTN (hypertension), benig n (401.1), Peripheral edema (Renamed from Edema, peripheral) (782.3 | R60.9) On: 05-Sep-2012 13:12 Encounter Reason: Follow up laboratory t ests - The blood was drawn on: Date: (09/05/12 Pt is in for recheck of her b/p and the swelling she was having and both are much better.). Follow up visit with no current symptoms. End: 05-Sep-2012 18:04 Note for "Follow up for laboratory tests ": Pt is here today for a follow up. She would like to discuss her lab work she had done last week after her visit with us. She states she is feeling fine and has no complaints today. [facility] Office Visit - HTN (hypertension), benig n (401.1), Dyslipidemia (272.4), Peripheral edema (782.3), Rectal bleeding (569.3), Hemorrhoids (Renamed from Hemorrhoid) (455.6 | K64.9) On: 28-Aug-2012 15:02 Encounter Reason: Edema of lower extremi ties - The onset of the edema of lower extremities has been gradual (Pt has noted a gradual increase in edema in her feet initially but now up into her lower legs and around her an End: 28-Aug-2012 17:41 kles. She denies SOB or cough with her sx's but describes occassional "squeezing type pain in the right side of her chest and into her back at times. She has noted some irregular heart beats and some times a fast heart beat. She denies an y sputum production, fever or chills. She denies heart burn and reflux. Her energy level is decreased.) and has been occurring in a recurrent pattern for 1 yves h (The sx's have been more constant for about a month) . The course has been increasing and the severity level is moderate. The edema of lower extremities affects both legs. The swelling currently ext ends to the ankles. The symptoms are rel ieved by: elevation and diuretics (Is on Lisinopril with HCTZ but it doesn't seem to help like it did initially). Associated symptoms include: chest pain. The per tinent past medical history includes: hy pertension. Note for "Edema of lower extremities": Pt is here today with complaints of edema. She came up here before the week o August 22 and I instructed her to keep them propped up as much as possible . She stated it was around both ankles mainly on the left side but both of them swell. She stated this helped but she wanted to come in and make sure everything was okay. She will need medication refil ls today also. Pt is also complaining about being constipated. When she finally did go to the bathroom she states she has blood in her stool. She then had some diarrhea. Pt states she is regular now. [facility] Office Visit - URI, acute (465.9) On: 02-May-2012 8:39 Encounter Reason: Cold Symptoms - The [facility] visit was 10 week(s) ago. Symptoms include sneezing (feels achy and chilled but no fever or chest congestion), nasal congestion, runny nose, postnasal drainage, scratchy End: 02-May-2012 9:33 throat and headache. Onset was sudden (2 days ago) 2 day(s) ago. There is no known event that preceded symptom onset. The patient describes this as moderate in severity. Note for "Cold symptoms": Pt is here today with complaints of having col d symptoms. She has been having chills but no fever since Sunday with these symptoms. The symptoms are postnasal drainage, stuffy head, headache on the right fr ontal lobe. She is complaining about ble eding when she blows her nose also. She has no other complaints of anything.[facility] Office Visit - Bacterial vaginitis (616.10), Candidal vaginitis (112.1) On: 16-Feb-2012 11:28 Encounter Reason: Follow Up - Current sy mptoms include other. Note for " discuss consultation": Pt is here today for a follow up. She is complaining of not having her cycle this month. She states last time she done this she had a cyst. , End: 16-Feb-2012 13:04 Pap, Abnormal - The patient is being see n for a consultation regarding an abnormal Pap test (done in with Jasmyn and Coccobacilli vaginitis, PAP 01/10/12). Initial abnormal testing was done 1 m onth(s) ago and showed reactive changes and suggestion of a vaginal infection. Management changes made at the last visit include adding prescription for lotrisone was called in but pt has not picked it up yet. Symptoms include intermenstrual bleeding (and menstrual irregularities). She describes the discharge as mucoid.[facility] Office Visit - Pap smear, as part of kimi salazar gynecological examination (V76.2), HTN (hypertension), benign (401.1), Headache (784.0) On: 10-Jan-2012 9:10 Encounter Reason: Pap Smear - The patien t feels well with no complaints (some H/A and was seen in ER yesterday and had CT scan done and was treated with Phenergan and Vicoden in the ER). Pap smear: Date: (09/12/2010 was t End: 10-Jan-2012 12:04 he last pap done.). Nutrition: inappropr iate diet (with obesity and reviewed low carb diet). Patient exercises none (not regularly). Patient sleeps 8 hours per night. The patient's libido is normal. The patient reports that she performs month ly self breast exam. Note for "Pap Smear": Pt last period was 12/24/2011-12/28/2011, Migraine headaches - The onset of the migraine headaches has been sudden and they have been occurring in a persistent pattern for 2 days. The course has been constant. The migraine headaches is described as moderate (see note ). Note for "Migraine headaches": Pt went to the ER on Sunday due to a Migra ne headaches. She stated her blood press ure was 151/101 but had came down some while at the ER. She was prescribed some phenergan for the nausea.[facility] Insurance Maximiliano Smith; a guarantorBCBS of [place]
== END 2020-09-09 11:55 | disposition home or self-care (01) | DRG 872 ==
LOC: ER 06:54 → MED/SURG 06:54 → ICU 09-05 14:11
PROVIDERS: ADMIT Family Medicine; ATTEND Family Medicine
DX: A41.51 Sepsis due to Escherichia coli [E. coli]; A04.5 Campylobacter enteritis; E87.6 Hypokalemia; Z20.822 Contact with and (suspected) exposure to COVID-19; I10 Essential (primary) hypertension